=== PATIENT | female | born 1985 | race African-American/Black ===

== ENCOUNTER 2018-08-15 14:11 | Emergency (ER) | payer OTHER, SELFPAY ==
[2018-08-15] MEDS ORDERED: KETOROLAC 30 MG/ML INJ ONE (15:38)
[2018-08-15 15:42] LABS: Absolute Lymphocytes (CBC) 1.9 K/uL (0.7-4.9); Absolute Monocytes 0.4 K/uL (0.1-1.3); Absolute Neutrophil 4.4 K/uL (1.8-8.0); Basophils % 0.6 % (0-1.3); Eosinophils % 1.6 % (0-4.4); Hematocrit 35.4 % (36.0-45.0); Lymphocytes % 27.1 % (15.3-44.8); MPV 8.6 fL (7.6-11.3); Monocytes % 6.5 % (3.3-12.3); RBC Red Blood Cell Count 4.14 M/uL (3.86-4.86)
[2018-08-15 15:44] LABS: Protime INR 1.18
[2018-08-15 15:57] LABS: ALT/SGPT 26 U/L (12-78); AST/SGOT 12 U/L (15-37); Albumin 3.6 g/dL (3.4-5.0); Alkaline Phosphatase 66 U/L (45-117); BUN Blood Urea Nitrogen 7 mg/dL (7-18); Bicarbonate 29 mmol/L (21-32); Bilirubin Direct < 0.1 mg/dL (0-0.2); Bilirubin Total 0.2 mg/dL (0.2-1.0); Glucose Level 77 mg/dL (74-106); NT PRO-BNP 83 pg/mL (<125); Potassium 3.6 mmol/L (3.5-5.1); Protein, Total 7.7 g/dL (6.4-8.2); Sodium Level 141 mmol/L (136-145); Troponin (Emerg Dept Use Only) < 0.02 ng/mL (0.0-0.045)
--- NOTE | 2018-08-15 16:27 | RAD REPORT ---
EXAM DESCRIPTION: Willy Single View08/15/2018 3:13 pm CLINICAL HISTORY: Chest pain COMPARISON: 2017 FINDINGS: Lungs appear grossly clear. The heart is normal size
--- NOTE | 2018-08-15 17:19 | ER ---
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 Transition of care: patient was not received from another setting of care. Onset of symptoms was August 15, 2018. Risk Assessment: Do you want to hurt yourself or someone else? Patient reports no desire to harm self or others. Initial Sepsis Screen: Does the patient meet any 2 criteria? No. Patient's initial sepsis screen is negative. Does the patient have a suspected source of infection? No. Patient's initial sepsis screen is negative. Care prior to arrival: None. 14:22 Method Of Arrival: Ambulatory 14:22 Acuity: CRISTHIAN 3 Triage Assessment: 14:26 General: Appears in no apparent distress. uncomfortable, Behavior is calm, cooperative, hj appropriate for age. Pain: Complains of pain in head, chest. Cardiovascular: Reports chest pain. 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 - Social history:: Smoking status: Patient uses tobacco products, Patient/guardian denies using alcohol. - Ebola Screening: : Patient negative for fever greater than or equal to 101.5 degrees Fahrenheit, and additional compatible Ebola Virus Disease symptoms Patient denies exposure to infectious person Patient denies travel to an Ebola-affected area in the 21 days before illness onset. Screenin:26 Abuse screen: Denies threats or abuse. Denies injuries from another. Nutritional hj screening: No deficits noted. Tuberculosis screening: No symptoms or risk factors identified. Fall Risk None identified. Assessment: 14:29 Pain: Pain radiates to right arm Pain began last week and came back today. hj 14:41 Reassessment: Patient appears in no apparent distress at this time. Patient and/or sg family updated on plan of care and expected duration. Pain level reassessed. Patient is alert, oriented x 3, equal unlabored respirations, skin warm/dry/pink. 16:30 General: Appears in no apparent distress. comfortable, Behavior is calm, cooperative. rb1 Pain: Denies pain. Neuro: Level of Consciousness is awake, alert, obeys commands, Oriented to person, place, time, situation. Cardiovascular: Capillary refill < 3 seconds is brisk in bilateral fingers. Respiratory: Airway is patent Respiratory effort is even, unlabored, Respiratory pattern is regular, symmetrical. GI: No signs and/or symptoms were reported involving the gastrointestinal system. : No signs and/or symptoms were reported regarding the genitourinary system. Derm: Skin is dry, Skin is normal, Skin temperature is warm. 17:30 Reassessment: Patient appears in no apparent distress at this time. No changes from rb1 previously documented assessment. Vital Signs: 14:27 BP 126 / 87; Pulse 104; Resp 18; Temp 99.8(O); Pulse Ox 99% on R/A; Weight 90.72 kg; hj Height 5 ft. 2 in. (157.48 cm); Pain 10/10; 15:52 BP 130 / 95; Pulse 89; Resp 16; Pulse Ox 100% on R/A; Pain 8/10; sg 16:30 BP 133 / 89; Pulse 82; Resp 19; Pulse Ox 98% on R/A; Pain 7/10; rb1 17:30 BP 134 / 90; Pulse 81; Resp 16; Pulse Ox 100% on R/A; rb1 14:27 Body Mass Index 36.58 (90.72 kg, 157.48 cm) ED Course: 14:21 Patient arrived in ED. mr 14:21 None, None is Private Physician. mr 14:25 Triage completed. hj 14:27 Arm band placed on left wrist. hj 14:27 campus monitor on. Pulse ox on. NIBP on. hj 14:29 Patient has correct armband on for positive identification. Placed in gown. Bed in low hj position. Call light in reach. Side rails up X 1. 14:29 Patient maintains SpO2 saturation greater than 95% on room air. 14:37 Elan Álvarez MD is Attending Physician. 14:38 Kit Dhillon, RN is Primary Nurse. sg 14:41 Warm blanket given. sg 15:13 XRAY Chest (1 view) In Process Unspecified. EDMS 15:15 Flu and/or RSV swab sent to lab. [facility] 15:18 EKG done, by survey field technician. reviewed by Elan Álvarez MD. 3 15:25 Initial lab(s) drawn, by oh, sent to lab. Inserted saline lock: 20 gauge in right 3 antecubital area, using aseptic technique. Blood collected. 17:18 Abrahan Ruano MD is Referral Physician. 17:19 Noe Pearce DO is Referral Physician. 17:38 No provider procedures requiring assistance completed. IV discontinued, intact, rb1 bleeding controlled, No redness/swelling at site. Pressure dressing applied. Administered Medications: 15:42 Drug: TORadol 30 mg Route: IVP; Site: right antecubital; Outcome: 17:19 Discharge ordered by MD. gs 17:38 Patient left the ED. rb1 17:38 Discharged to home ambulatory, with family. rb1 17:38 Condition: stable 17:38 Discharge instructions given to patient, Instructed on discharge instructions, follow up and referral plans. Demonstrated understanding of instructions, follow-up care, Prescriptions given X none Signatures: Dispatcher [employer] EDUT Kit Dhillon RN RN Catalina Simmons mr [address] RN RN Paty Leyva RN RN [facility] Gini Whittaker [facility] Elan Álvarez MD MD Felecia You 3 Corrections: (The following items were deleted from the chart) 16:51 16:30 BP 133 / 89; Pulse 82bpm; Resp 19bpm; Pulse Ox 98% RA; rb1 rb1
--- NOTE | 2018-08-15 17:19 | EDPHYS ---
Physician Documentation [facility] Name: Taisha Gavin Age: 33 yrs Sex: Female : 1985 Arrival Date: 08/15/2018 Time: 14:21 Bed 17 Private MD: None, None ED Physician Elan Álvarez HPI: 08/15 17:44 This 33 yrs old Black Female presents to ER via Ambulatory with complaints of Chest gs Pain, Headache. 17:44 The patient or guardian reports chest pain that is located primarily in the anterior gs chest wall. 17:53 The pain does not radiate. Associated signs and symptoms: Pertinent negatives:. gs 18:01 The chest pain is described as dull. Duration: The patient or guardian reports multiple gs episodes, that are intermittent, that wax and wane, with no pattern, change location in chest. Modifying factors: The symptoms are alleviated by nothing. the symptoms are aggravated by nothing. Severity of pain: At its worst the pain was moderate in the emergency department the pain has resolved. The patient has experienced similar episodes in the past, several times. 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 - Social history:: Smoking status: Patient uses tobacco products, Patient/guardian denies using alcohol. - Ebola Screening: : Patient negative for fever greater than or equal to 101.5 degrees Fahrenheit, and additional compatible Ebola Virus Disease symptoms Patient denies exposure to infectious person Patient denies travel to an Ebola-affected area in the 21 days before illness onset. ROS: 18:01 Neuro: Positive for headache usual no severe no visual changes. gs 18:01 All other systems are negative. Exam: 18:01 Head/Face: Normocephalic, atraumatic. Eyes: Pupils equal round and reactive to light, gs extra-ocular motions intact. Lids and lashes normal. Conjunctiva and sclera are non-icteric and not injected. Cornea within normal limits. Periorbital areas with no swelling, redness, or edema. ENT: Nares patent. No nasal discharge, no septal abnormalities noted. Tympanic membranes are normal and external auditory canals are clear. Oropharynx with no redness, swelling, or masses, exudates, or evidence of obstruction, uvula midline. Mucous membranes moist. Neck: Trachea midline, no thyromegaly or masses palpated, and no cervical lymphadenopathy. Supple, full range of motion without nuchal rigidity, or vertebral point tenderness. No Meningismus. Chest/axilla: Normal chest wall appearance and motion. Nontender with no deformity. No lesions are appreciated. Cardiovascular: Regular rate and rhythm with a normal S1 and S2. No gallops, murmurs, or rubs. Normal PMI, no JVD. No pulse deficits. Respiratory: Lungs have equal breath sounds bilaterally, clear to auscultation and percussion. No rales, rhonchi or wheezes noted. No increased work of breathing, no retractions or nasal flaring. Abdomen/GI: Soft, non-tender, with normal bowel sounds. No distension or tympany. No guarding or rebound. No evidence of tenderness throughout. Back: No spinal tenderness. No costovertebral tenderness. Full range of motion. Skin: Warm, dry with normal turgor. Normal color with no rashes, no lesions, and no evidence of cellulitis. MS/ Extremity: Pulses equal, no cyanosis. Neurovascular intact. Full, normal range of motion. Neuro: Awake and alert, GCS 15, oriented to person, place, time, and situation. Cranial nerves II-XII grossly intact. Motor strength 5/5 in all extremities. Sensory grossly intact. Cerebellar exam normal. Normal gait. 18:01 Constitutional: The patient appears alert, awake. 18:01 ECG was reviewed by the Attending Physician. Vital Signs: 14:27 BP 126 / 87; Pulse 104; Resp 18; Temp 99.8(O); Pulse Ox 99% on R/A; Weight 90.72 kg; hj Height 5 ft. 2 in. (157.48 cm); Pain 10/10; 15:52 BP 130 / 95; Pulse 89; Resp 16; Pulse Ox 100% on R/A; Pain 8/10; sg 16:30 BP 133 / 89; Pulse 82; Resp 19; Pulse Ox 98% on R/A; Pain 7/10; rb1 17:30 BP 134 / 90; Pulse 81; Resp 16; Pulse Ox 100% on R/A; rb1 14:27 Body Mass Index 36.58 (90.72 kg, 157.48 cm) MDM: 14:51 Patient medically screened. 18:01 Differential diagnosis: acute myocardial infarction, chest wall pain, pneumonia, gs pneumothorax. Data reviewed: vital signs, nurses notes. Counseling: I had a detailed discussion with the patient and/or guardian regarding: the historical points, exam findings, and any diagnostic results supporting the discharge/admit diagnosis, the presence of at least one elevated blood pressure reading (>120/80) during this emergency department visit. Response to treatment: the patient's symptoms have resolved after treatment, the patient's pain is gone. Special discussion: I have referred the patient to see his PCP for further evaluation of high blood pressure. Further emergent ED testing is not indicated at this point in time. I discussed with the patient/guardian in detail the need to arrange with the PCP or specialist further outpatient testing. 08/15 14:52 Order name: Basic Metabolic Panel; Complete Time: 16:45 08/15 14:52 Order name: CBC with Diff; Complete Time: 16:45 08/15 14:52 Order name: LFT's; Complete Time: 16:45 08/15 14:52 Order name: Magnesium; Complete Time: 16:45 08/15 14:52 Order name: NT PRO-BNP; Complete Time: 16:45 08/15 14:52 Order name: PT-INR; Complete Time: 16:45 08/15 14:30 Order name: EKG; Complete Time: 14:30 08/15 14:52 Order name: Troponin (emerg Dept Use Only); Complete Time: 16:45 08/15 14:52 Order name: XRAY Chest (1 view); Complete Time: 16:45 08/15 14:52 Order name: Cardiac monitoring; Complete Time: 15:10 08/15 14:52 Order name: Flu; Complete Time: 16:45 08/15 15:50 Order name: Urine Dipstick--Ancillary (enter results) 08/15 15:50 Order name: Urine --Ancillary (enter results) 08/15 14:52 Order name: IV Saline Lock; Complete Time: 15:10 08/15 14:52 Order name: Labs collected and sent; Complete Time: 15: 08/15 14:52 Order name: O2 Per Protocol; Complete Time: 15: 08/15 14:52 Order name: O2 Sat Monitoring; Complete Time: 15: EC:01 Rate is 88 beats/min. Rhythm is regular. VA interval is normal. QRS interval is normal. gs T waves are Normal. No ST changes noted. Clinical impression: Normal ECG. Interpreted by me. Administered Medications: 15:42 Drug: TORadol 30 mg Route: IVP; Site: right antecubital; sg Disposition: 08/15/18 17:19 Discharged to Home. Impression: Chest pain, unspecified, Headache. - Condition is Stable. - Discharge Instructions: Nonspecific Chest Pain, General Headache Without Cause. - Medication Reconciliation Form, Thank You Letter, Antibiotic Education, Prescription Opioid Use form. - Follow up: Abrahan Ruano MD; When: 2 - 3 days; Reason: Re-evaluation by your physician. Follow up: Noe Pearce DO; When: 2 - 3 days; Reason: Re-evaluation by your physician. Signatures: Dispatcher [employer] EDKit Pearce RN RN Lincoln Lane RN RN Paty Leyva RN RN rb1 Elan Álvarez MD MD Corrections: (The following items were deleted from the chart) 17:38 17:19 08/15/2018 17:19 Discharged to Home. Impression: Chest pain, unspecified; rb1 Headache. Condition is Stable. Forms are Medication Reconciliation Form, Thank You Letter, Antibiotic Education, Prescription Opioid Use. Follow up: Abrahan Ruano; When: 2 - 3 days; Reason: Re-evaluation by your physician. Follow up: Noe Pearce; When: 2 - 3 days; Reason: Re-evaluation by your physician.
[2018-08-15 18:48] LABS: Urine Blood 2+ (NEG); Urine Glucose NEGATIVE (NEG); Urine Protein NEGATIVE (NEG); Urine Specific Gravity 1.015 (1.005-1.030)
[2018-08-15 19:18] VITALS: TEMP 99.8
[2018-08-15 19:20] VITALS: BP 133/89; O2SAT 98
--- NOTE | 2018-08-15 22:55 | EKG ---
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
== END 2018-08-15 17:38 | disposition home or self-care (01) ==
LOC: ER 14:11
DX: R07.9 Chest pain, unspecified (principal); R51 Headache; Z72.0 Tobacco use
CPT/HCPCS: 36415; 71045; 80048; 80076; 81003; 81025; 83735; 83880; 84484; 85025; 85610; 87804; 93005; 96374; 99285

== ENCOUNTER 2018-10-04 10:57 | Emergency (ER) | payer SELFPAY ==
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
[2018-10-04] MEDS ORDERED: KETOROLAC 30 MG/ML INJ ONE (13:42)
[2018-10-04] MEDS ORDERED: CYCLOBENZAPRINE 10 MG TAB ONE (13:44)
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
[2018-10-04 14:51] VITALS: TEMP 98.1; O2SAT 100
[2018-10-04 15:04] VITALS: BP 115/67
== END 2018-10-04 14:31 | disposition home or self-care (01) ==
LOC: ER 10:57
DX: M25.521 Pain in right elbow (principal); M54.12 Radiculopathy, cervical region; V49.50XA Passenger injured in collision with unspecified motor vehicles in traffic accident, initial encounter; F17.210 Nicotine dependence, cigarettes, uncomplicated
CPT/HCPCS: 71046; 96372; 99284

== ENCOUNTER 2019-10-12 22:02 | Emergency (ER) | payer SELFPAY ==
[2019-10-12 22:58] LABS: Absolute Lymphocytes (CBC) 3.1 K/uL (0.7-4.9); Basophils % 0.7 % (0-1.3); Hematocrit 31.9 % (36.0-45.0); Lymphocytes % 39.4 % (15.3-44.8); MPV 8.6 fL (7.6-11.3); RBC Red Blood Cell Count 3.83 M/uL (3.86-4.86)
[2019-10-12] MEDS ORDERED: ONDANSETRON 4 MG/2 ML VIAL ONE (23:00)
[2019-10-12] MEDS ORDERED: MORPHINE 4 MG/ML SYR ONE (23:00)
[2019-10-12 23:16] LABS: Urine Blood 2+ (NEG); Urine Glucose NEGATIVE (NEG); Urine Protein NEGATIVE (NEG); Urine Specific Gravity 1.025 (1.005-1.030)
[2019-10-12 23:19] LABS: Protime INR 1.22
[2019-10-12 23:23] LABS: ALT/SGPT 26 U/L (12-78); AST/SGOT 17 U/L (15-37); Albumin 3.3 g/dL (3.4-5.0); Alkaline Phosphatase 54 U/L (45-117); BUN Blood Urea Nitrogen 7 mg/dL (7-18); Bicarbonate 25 mmol/L (21-32); Bilirubin Direct < 0.1 mg/dL (0-0.2); Bilirubin Total 0.2 mg/dL (0.2-1.0); Glucose Level 94 mg/dL (74-106); Magnesium 2.2 mg/dL (1.8-2.4); NT PRO-BNP 27 pg/mL (<125); Potassium 3.4 mmol/L (3.5-5.1); Protein, Total 7.3 g/dL (6.4-8.2); Sodium Level 140 mmol/L (136-145); Troponin (Emerg Dept Use Only) < 0.02 ng/mL (0.0-0.045)
[2019-10-12] MEDS ORDERED: DIPHENHYDRAMINE 50 MG/ML VIAL ONE (23:53)
[2019-10-12] MEDS ORDERED: POTASSIUM CL SA 10 MEQ TAB PO ONE (23:53)
--- NOTE | 2019-10-13 01:21 | ER ---
Nurse's Notes [facility] Name: Taisha Gavin Age: 34 yrs Sex: Female : 1985 Arrival Date: 10/12/2019 Time: 22:08 Bed 23 Private MD: Diagnosis: Chest pain Presentation: 10/11 22:08 Chief complaint: Patient states: CHEST PAIN THAT STARTED ONE HOUR AGO. ls4 22:08 Coronavirus screen: The patient has NOT traveled to a country currently being monitored ls4 by the [facility] within the last 14 days. Proceed with normal triage procedures. Ebola Screen: Patient negative for fever greater than or equal to 101.5 degrees Fahrenheit, and additional compatible Ebola Virus Disease symptoms. Initial Sepsis Screen: Does the patient meet any 2 criteria? No. Patient's initial sepsis screen is negative. Does the patient have a suspected source of infection? No. Patient's initial sepsis screen is negative. Risk Assessment: Do you want to hurt yourself or someone else? Patient reports no desire to harm self or others. 22:08 Method Of Arrival: EMS: [facility] ls4 22:08 Acuity: CRISTHIAN 3 ls4 Triage Assessment: 22:08 General: Appears in no apparent distress. Behavior is calm, cooperative. Pain: ls4 Complains of pain in mid-sternal area Pain currently is 9 out of 10 on a pain scale. Quality of pain is described as sharp, Pain began suddenly, 1 hour ago. 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 - Social history:: Smoking status: Patient reports the use of cigarette tobacco products, smokes one pack cigarettes per day. Screenin:08 Abuse screen: Denies threats or abuse. Denies injuries from another. Nutritional ls4 screening: No deficits noted. Tuberculosis screening: No symptoms or risk factors identified. Fall Risk None identified. Assessment: 22:10 General: Appears in no apparent distress. Behavior is calm, cooperative. Neuro: No ls4 deficits noted. Cardiovascular: Reports chest pain, Denies diaphoresis, fatigue, lightheadedness, nausea, palpitations, shortness of breath, syncope, vomiting, Capillary refill < 3 seconds Clubbing of nail beds is absent Thorax Patient's skin is warm and dry. Rhythm is sinus rhythm. Respiratory: No deficits noted. GI: No deficits noted. No signs and/or symptoms were reported involving the gastrointestinal system. : No deficits noted. No signs and/or symptoms were reported regarding the genitourinary system. Derm: No deficits noted. No signs and/or symptoms reported regarding the dermatologic system. Musculoskeletal: No deficits noted. No signs and/or symptoms reported regarding the musculoskeletal system. 23:10 Reassessment: Patient appears in no apparent distress at this time. Patient and/or ls4 family updated on plan of care and expected duration. Pain level reassessed. Patient is alert, oriented x 3, equal unlabored respirations, skin warm/dry/pink. Patient states symptoms have improved. 10/12 00:30 Reassessment: Patient appears in no apparent distress at this time. Patient and/or ls4 family updated on plan of care and expected duration. Pain level reassessed. Patient is alert, oriented x 3, equal unlabored respirations, skin warm/dry/pink. Vital Signs: 10/11 22:08 BP 139 / 86; Pulse 69; Resp 14; Temp 98.1; Pulse Ox 99% on R/A; Weight 79.38 kg; Height ls4 5 ft. 2 in. (157.48 cm); Pain 9/10; 23:55 BP 138 / 88; Pulse 55; Resp 14; Pulse Ox 99% on R/A; Pain 3/10; ls4 10/12 00:00 BP 148 / 84; Pulse 62; Resp 14; Pulse Ox 100% on R/A; Pain 3/10; ls4 10/11 22:08 Body Mass Index 32.01 (79.38 kg, 157.48 cm) 4 ED Course: 10/11 22:08 Patient arrived in ED. vc 22:08 Arm band placed on. ls4 22:08 EKG completed in triage. Results shown to MD. 4 22:10 Osvaldo Atkins MD is Attending Physician. pkl 22:10 Patient has correct armband on for positive identification. Allergy band placed. Placed ls4 in gown. Bed in low position. Call light in reach. Side rails up X 1. 22:20 No provider procedures requiring assistance completed. Inserted saline lock: 20 gauge ls4 in right antecubital area, using aseptic technique. Blood collected. 22:20 Initial lab(s) drawn, by me, sent to lab. Urine collected: clean catch specimen, clear. ls4 Patient maintains SpO2 saturation greater than 95% on room air. 22:32 Irina Mccauley RN is Primary Nurse. vc 22:55 X-ray completed. Portable x-ray completed in exam room. Patient tolerated procedure mh1 well. 23:16 Triage completed. ls4 23:52 Urine --Ancillary (enter results) Sent. ls4 23:52 Urine Dipstick--Ancillary (enter results) Sent. ls4 03 00:59 XRAY Chest (1 view) In Process Unspecified. EDMS 01:19 Osvaldo Hendrix MD is Referral Physician. pkl 01:19 Troponin (emerg Dept Use Only) Sent. ls4 01:24 IV discontinued, intact, bleeding controlled, No redness/swelling at site. Pressure ls4 dressing applied. Administered Medications: 03 22:45 Drug: morphine 4 mg Route: IVP; Site: right antecubital; ls4 23:15 Follow up: Response: No adverse reaction; Marked relief of symptoms ls4 22:45 Drug: Zofran (Ondansetron) 4 mg Route: IVP; Site: right antecubital; ls4 23:15 Follow up: Response: No adverse reaction ls4 23:49 Drug: K-Dur 20 mEq Route: PO; ls4 23:52 Follow up: Response: No adverse reaction ls4 23:49 Drug: Benadryl 25 mg Route: IVP; Site: right antecubital; ls4 23:52 Follow up: Response: No adverse reaction ls4 Outcome: 10/12 01:20 Discharge ordered by . pkl 01:24 Discharged to home ambulatory, with family. ls4 01:24 Condition: good 01:24 Discharge instructions given to patient, family, Instructed on discharge instructions, follow up and referral plans. medication usage, Demonstrated understanding of instructions, follow-up care, medications. 01:31 Patient left the ED. aa1 Signatures: Dispatcher [employer] Annie Sanches RN RN aa1 Osvaldo Atkins MD MD [facility] Mili Durant 1 Merline Jung RN RN ls4 Irina Mccauley RN RN vc Corrections: (The following items were deleted from the chart) 10/11 23:19 23:17 PSHx: None; ls4 ls4
--- NOTE | 2019-10-13 01:21 | EDPHYS ---
Physician Documentation [facility] Name: Taisha Gavin Age: 34 yrs Sex: Female : 1985 Arrival Date: 10/12/2019 Time: 22:08 Bed 23 Private MD: ED Physician Osvaldo Atkins HPI: 10/11 22:34 This 34 yrs old Black Female presents to ER via Unassigned with unknown complaint. pkl 22:34 The patient or guardian reports chest pain that is located primarily in the substernal pkl area. The pain does not radiate. Associated signs and symptoms: The patient has no apparent associated signs or symptoms. The chest pain is described as sharp. Patient saw her Dentist earlier today for dental pain. Pending dental surgery by oral surgeon on Tuesday. 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 - Social history:: Smoking status: Patient reports the use of cigarette tobacco products, smokes one pack cigarettes per day. ROS: 22:34 Eyes: Negative for injury, pain, redness, and discharge. pkl 22:34 ENT: Positive for dental pain. 22:34 Neck: Negative for stiffness. 22:34 Cardiovascular: Positive for chest pain. 22:34 Respiratory: Negative for cough, shortness of breath. 22:34 Abdomen/GI: Negative for abdominal pain, nausea, vomiting, and diarrhea. 22:34 Back: Negative for acute changes. 22:34 : Negative for urinary symptoms. 22:34 MS/extremity: Negative for acute changes. 22:34 Skin: Negative for rash. 22:34 Neuro: Negative for altered mental status. Exam: 22:34 Head/Face: Normocephalic, atraumatic. Eyes: Pupils equal round and reactive to light, pkl extra-ocular motions intact. Lids and lashes normal. Conjunctiva and sclera are non-icteric and not injected. Cornea within normal limits. Periorbital areas with no swelling, redness, or edema. ENT: Nares patent. No nasal discharge, no septal abnormalities noted. Tympanic membranes are normal and external auditory canals are clear. Oropharynx with no redness, swelling, or masses, exudates, or evidence of obstruction, uvula midline. Mucous membranes moist. Neck: Trachea midline, no thyromegaly or masses palpated, and no cervical lymphadenopathy. Supple, full range of motion without nuchal rigidity, or vertebral point tenderness. No Meningismus. Chest/axilla: Normal chest wall appearance and motion. Nontender with no deformity. No lesions are appreciated. Cardiovascular: Regular rate and rhythm with a normal S1 and S2. No gallops, murmurs, or rubs. Normal PMI, no JVD. No pulse deficits. Respiratory: Lungs have equal breath sounds bilaterally, clear to auscultation and percussion. No rales, rhonchi or wheezes noted. No increased work of breathing, no retractions or nasal flaring. Abdomen/GI: Soft, non-tender, with normal bowel sounds. No distension or tympany. No guarding or rebound. No evidence of tenderness throughout. Back: No spinal tenderness. No costovertebral tenderness. Full range of motion. Skin: Warm, dry with normal turgor. Normal color with no rashes, no lesions, and no evidence of cellulitis. MS/ Extremity: Pulses equal, no cyanosis. Neurovascular intact. Full, normal range of motion. Neuro: Awake and alert, GCS 15, oriented to person, place, time, and situation. Cranial nerves II-XII grossly intact. Motor strength 5/5 in all extremities. Sensory grossly intact. Cerebellar exam normal. Normal gait. Vital Signs: 22:08 BP 139 / 86; Pulse 69; Resp 14; Temp 98.1; Pulse Ox 99% on R/A; Weight 79.38 kg; Height ls4 5 ft. 2 in. (157.48 cm); Pain 9/10; 23:55 BP 138 / 88; Pulse 55; Resp 14; Pulse Ox 99% on R/A; Pain 3/10; ls4 10/12 00:00 BP 148 / 84; Pulse 62; Resp 14; Pulse Ox 100% on R/A; Pain 3/10; ls4 10/11 22:08 Body Mass Index 32.01 (79.38 kg, 157.48 cm) ls4 MDM: 10/11 22:10 Patient medically screened. pkl 10/12 01:18 Data reviewed: vital signs, nurses notes, lab test result(s), EKG, radiologic studies, pkl plain films. 01:20 ED course: discussed lab. EKG and X' rays results with patient. Advised to follow up pkl with Pricing Consultant next week for further evaluations. Patient understood instructions. 10/11 22:30 Order name: Basic Metabolic Panel pkl 10/11 22:30 Order name: CBC with Diff pkl 10/11 22:30 Order name: LFT's pkl 10/11 22:30 Order name: Magnesium pkl 10/11 22:30 Order name: NT PRO-BNP pkl 10/11 22:30 Order name: PT-INR pkl 10/11 22:30 Order name: Troponin (emerg Dept Use Only) pkl 10/11 22:31 Order name: D-Dimer pkl 10/11 23:01 Order name: CBC with Automated Diff; Complete Time: 23:26 EDMS 10/11 23:03 Order name: Urine Dipstick--Ancillary (enter results) ar5 10/11 23:03 Order name: Urine --Ancillary (enter results) ar5 10/11 23:16 Order name: D-Dimer; Complete Time: 23:26 EDMS 10/11 23:17 Order name: Urine --Ancillary; Complete Time: 23:26 EDMS 10/11 23:17 Order name: Urine Dipstick-Ancillary; Complete Time: 23:26 EDMS 10/11 22:30 Order name: XRAY Chest (1 view) pkl 10/11 22:30 Order name: EKG; Complete Time: 22:32 pkl 10/11 22:30 Order name: Cardiac monitoring; Complete Time: 22:33 pkl 10/11 23:21 Order name: Protime (+INR); Complete Time: 23:26 EDMS 10/11 23:23 Order name: Basic Metabolic Panel; Complete Time: 23:26 EDMS 10/11 23:23 Order name: Liver (Hepatic) Function; Complete Time: 23:26 EDMS 10/11 23:23 Order name: Troponin (Emerg Dept Use Only); Complete Time: 23:26 EDMS 10/11 23:23 Order name: NT PRO-BNP; Complete Time: 23:26 EDMS 10/11 23:23 Order name: Magnesium; Complete Time: 23:26 EDMS 10/12 00:21 Order name: EKG; Complete Time: 00:22 pkl 10/12 00:21 Order name: Troponin (emerg Dept Use Only) pkl 10/12 00:59 Order name: Troponin (Emerg Dept Use Only); Complete Time: 01:05 EDMS 10/11 22:30 Order name: EKG - Nurse/Tech; Complete Time: :33 pkl 10/11 22:30 Order name: IV Saline Lock; Complete Time: :33 pkl 10/11 22:30 Order name: Labs collected and sent; Complete Time: :33 pkl 10/11 22:30 Order name: O2 Per Protocol; Complete Time: :33 pkl 10/11 22:30 Order name: O2 Sat Monitoring; Complete Time: :33 pkl 10/12 01:07 Order name: EKG - Nurse/Tech; Complete Time: 01:19 ls4 Administered Medications: 10/11 22:45 Drug: morphine 4 mg Route: IVP; Site: right antecubital; ls4 23:15 Follow up: Response: No adverse reaction; Marked relief of symptoms ls4 22:45 Drug: Zofran (Ondansetron) 4 mg Route: IVP; Site: right antecubital; ls4 23:15 Follow up: Response: No adverse reaction ls4 23:49 Drug: K-Dur 20 mEq Route: PO; ls4 23:52 Follow up: Response: No adverse reaction ls4 23:49 Drug: Benadryl 25 mg Route: IVP; Site: right antecubital; ls4 23:52 Follow up: Response: No adverse reaction ls4 Disposition: 10/13/19 01:20 Discharged to Home. Impression: Chest pain. - Condition is Stable. - Medication Reconciliation Form, Thank You Letter, Antibiotic Education, Prescription Opioid Use form. - Follow up: Osvaldo Hendrix MD; When: 2 - 3 days; Reason: Re-evaluation by your physician. - Problem is new. - Symptoms have improved. Signatures: Dispatcher [employer] EDAnnie Baltazar RN RN aa1 Osvaldo Atkins MD MD pkl Stewart, Lisa, RN RN ls4 Corrections: (The following items were deleted from the chart) 23:19 23:17 PSHx: None; ls4 ls4 10/12 01:31 01:20 10/13/2019 01:20 Discharged to Home. Impression: Chest pain. Condition is Stable. aa1 Forms are Medication Reconciliation Form, Thank You Letter, Antibiotic Education, Prescription Opioid Use. Follow up: Osvaldo Hendrix; When: 2 - 3 days; Reason: Re-evaluation by your physician. Problem is new. Symptoms have improved. pkl
[2019-10-13 01:42] VITALS: TEMP 98.1
[2019-10-13 01:45] VITALS: BP 148/84; O2SAT 100
--- NOTE | 2019-10-13 07:36 | EKG ---
Test Date: 2019-10-13 Test Time: 01:16:02 Manager Military: RALPH MEASUREMENT RESULTS: Intervals: Rate: 63 SD: 170 QRSD: 94 QT: 428 QTc: 437 [place]: P: 26 SD: 170 QRS: 25 T: 24 INTERPRETIVE STATEMENTS: Normal sinus rhythm normal ECG Compared to ECG 10/12/2019 22:19:04 No significant changes Electronically Signed On 10-13-19 07:35:41 LEAD RIDER by Mihir Lopes
--- NOTE | 2019-10-13 07:37 | EKG ---
Test Date: 2019-10-12 Test Time: 22:19:04 Leaf Tinner: RALPH MEASUREMENT RESULTS: Intervals: Rate: 69 OK: 160 QRSD: 82 QT: 392 QTc: 420 [place]: P: 44 OK: 160 QRS: 21 T: 18 INTERPRETIVE STATEMENTS: Normal sinus rhythm Normal ECG Compared to ECG 08/15/2018 15:08:34 no significant change from previous ECG Electronically Signed On 10-13-19 07:36:30 FISHER DIVING by Mihir Lopes
--- NOTE | 2019-10-13 09:41 | RAD REPORT ---
EXAM DESCRIPTION: Willy Single View10/12/2019 10:55 pm CLINICAL HISTORY: Chest pain COMPARISON: 2019 FINDINGS: The lungs appear clear of acute infiltrate. The heart is normal size IMPRESSION: No acute abnormalities displayed
== END 2019-10-13 01:31 | disposition home or self-care (01) ==
LOC: ER 22:02
DX: R07.9 Chest pain, unspecified (principal); F17.210 Nicotine dependence, cigarettes, uncomplicated; Z88.5 Allergy status to narcotic agent; Z88.8 Allergy status to other drugs, medicaments and biological substances
CPT/HCPCS: 36415; 71045; 80048; 80076; 81003; 81025; 83735; 83880; 84484; 85025; 85379; 85610; 93005; 96374; 96375; 99285; J1200; J2405

== ENCOUNTER 2021-01-22 22:41 | Emergency (ER) | payer SELFPAY ==
--- OUTSIDE RECORDS SUMMARY | 2021-01-22 22:44 | XMS REPORT | Continuity of Care Document ---
:1985 Author Organization [facility] t Address [address] [place] [address] Care Team Providers Name Role Phone Pcp, Does Not Have A Primary Care Physician Nurse, Pob Immunization Attending Clinician Unavailable Khalif Coats DO Attending Clinician Problems This patient has no known problems. Allergies, Adverse Reactions, Alerts This patient has no known allergies or adverse reactions. Social History Social Habit Start Date Stop Date Quantity Comments Source Sex Assigned At [birth year] [facility] 00:00:00 00:00:00 Medical Branch Medications This patient has no known medications. Immunizations Ordered Filled Immunization Date Status Comments Sour e Immunization Name Name SARS-COV-2 COVID-19 2020-12-12 Completed Unive rsity of PFIZER VACCINE 00:00:00 [facility] Branch Procedures Procedure Date / Time Performed Performing Clinician Irene e SARS-COV-2 COVID-19 2020-12-12 14:31:35 Doctor Unassigned, No [facility] [place] VACCINE,0.3ML,IM Name Medical Branch (PFIZER) Plan of Care Planned Activity Planned Date Details Comments Source Future Scheduled 2021-04-08 INFLUENZA VACCINE [facility] Test 00:00:00 (Season Ended) [code Medical Branch = INFLUENZA VACCINE (Season Ended)] Future Scheduled 2021-01-02 SARS-CoV-2 [facility] Test 00:00:00 (COVID-19) Vaccine [facility] (2 - Pfizer 2-dose series) [code = SARS-CoV-2 (COVID-19) Vaccine (2 - Pfizer 2-dose series)] Future Scheduled 2005 Screening for [facility] Test 00:00:00 malignant neoplasm [facility] of cervix (procedure) [code = 039586918] Future Scheduled 2003 [facility]ap,[facility]d [facility] (1 - Tdap) Medical Branch [code = DTaP,Tdap,and Td Vaccines (1 - Tdap)] Future Scheduled 2002 Hepatitis C [facility] Test 00:00:00 screening Medical Branch (procedure) [code = [id number]] Future Scheduled 1996 [facility] ([facility] [code = Medical Branch [id number]] Future Scheduled 1985 VARICELLA VACCINES Unive [facility] Test 00:00:00 (1 of 2 - 2-dose Medical Bra [facility] childhood series) [code = VARICELLA VACCINES (1 of 2 - 2-dose childhood series)] Results This patient has no known results.
[2021-01-22 23:45] LABS: Absolute Lymphocytes (CBC) 2.7 K/uL (0.7-4.9); Basophils % 0.8 % (0-1.3); Lymphocytes % 27.2 % (15.3-44.8); MPV 8.4 fL (7.6-11.3); RBC Red Blood Cell Count 4.36 M/uL (3.86-4.86)
[2021-01-22] MEDS ORDERED: NA CHLORIDE 0.9% 1,000 ML ONE (23:49)
[2021-01-22] MEDS ORDERED: ACETAMINOPHEN 500 MG TAB ONE (23:49)
[2021-01-23 00:24] LABS: Urine Blood 3+ (Negative); Urine Glucose Negative (Negative); Urine Protein Trace (Negative); Urine Specific Gravity 1.025 (1.005-1.030)
[2021-01-23 00:33] LABS: BUN Blood Urea Nitrogen 8 mg/dL (7-18); Bicarbonate 25 mmol/L (21-32); Glucose Level 90 mg/dL (74-106); Potassium 3.6 mmol/L (3.5-5.1); Sodium Level 138 mmol/L (136-145)
[2021-01-23 00:36] LABS: Urine Specific Gravity/Preg 1.025 (1.005-1.030)
[2021-01-23 00:52] LABS: HCG, Quantitative < 1 mIU/mL (1-3)
[2021-01-23 01:12] LABS: Urine Bacteria 20-50 /HPF (<20); Urine Mucus 2+ /HPF (NONE SEEN); Urine Yeast FEW (NONE SEEN)
[2021-01-23] MEDS ORDERED: CEFTRIAXONE/SWI 1gm 1 GM/10 ML SYR ONE (01:25)
[2021-01-23] MEDS ORDERED: NA CHLORIDE 0.9% 100 ML ONE (01:25)
[2021-01-23] MEDS ORDERED: ONDANSETRON 4 MG/2 ML VIAL ONE (01:27)
[2021-01-23] MEDS ORDERED: MORPHINE 4 MG/ML SYR ONE (01:27)
[2021-01-23] MEDS ORDERED: DIPHENHYDRAMINE 50 MG/ML VIAL ONE (02:25)
[2021-01-23] MEDS ORDERED: CIPROFLOXACIN HCL 500 MG TAB ONE (03:06)
--- NOTE | 2021-01-23 03:14 | EDPHYS ---
Physician Documentation [facility] Name: Taisha Gavin Age: 35 yrs Sex: Female : 1985 Arrival Date: 01/22/2021 Time: 23:01 Bed 5 Private MD: ED Physician lCark Sagastume HPI: 01/22 23:21 This 35 yrs old Black Female presents to ER via Ambulatory with complaints of Abdominal ernesto Pain. 23:21 The patient presents with pelvic pain, vaginal bleeding that is moderate. Onset: The ernesto symptoms/episode began/occurred 1 day(s) ago. Modifying factors: The symptoms are alleviated by nothing, the symptoms are aggravated by nothing. Associated signs and symptoms: The patient has no apparent associated signs or symptoms. Severity of symptoms: At their worst the symptoms were mild, moderate, in the emergency department the symptoms are unchanged. The patient is sexually active, reportedly has a single partner. 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 - Social history:: Smoking status: Patient reports the use of cigarette tobacco products, denies chronic smoking, but will smoke occasionally. - Family history:: not pertinent. ROS: 23:21 Constitutional: Negative for fever, chills, and weight loss, Eyes: Negative for injury, ernesto pain, redness, and discharge, ENT: Negative for injury, pain, and discharge, Neck: Negative for injury, pain, and swelling, Cardiovascular: Negative for chest pain, palpitations, and edema, Respiratory: Negative for shortness of breath, cough, wheezing, and pleuritic chest pain, Abdomen/GI: Negative for abdominal pain, nausea, vomiting, diarrhea, and constipation, Back: Negative for injury and pain, MS/Extremity: Negative for injury and deformity, Skin: Negative for injury, rash, and discoloration, Neuro: Negative for headache, weakness, numbness, tingling, and seizure, Psych: Negative for depression, anxiety, suicide ideation, homicidal ideation, and hallucinations, Allergy/Immunology: Negative for hives, rash, and allergies, Endocrine: Negative for neck swelling, polydipsia, polyuria, polyphagia, and marked weight changes, Hematologic/Lymphatic: Negative for swollen nodes, abnormal bleeding, and unusual bruising. 23:21 : Positive for vaginal bleeding. Exam: 23:21 Constitutional: This is a well developed, well nourished patient who is awake, alert, ernesto and in no acute distress. Head/Face: Normocephalic, atraumatic. Eyes: Pupils equal round and reactive to light, extra-ocular motions intact. Lids and lashes normal. Conjunctiva and sclera are non-icteric and not injected. Cornea within normal limits. Periorbital areas with no swelling, redness, or edema. ENT: Nares patent. No nasal discharge, no septal abnormalities noted. Tympanic membranes are normal and external auditory canals are clear. Oropharynx with no redness, swelling, or masses, exudates, or evidence of obstruction, uvula midline. Mucous membranes moist. Neck: Trachea midline, no thyromegaly or masses palpated, and no cervical lymphadenopathy. Supple, full range of motion without nuchal rigidity, or vertebral point tenderness. No Meningismus. Chest/axilla: Normal chest wall appearance and motion. Nontender with no deformity. No lesions are appreciated. Cardiovascular: Regular rate and rhythm with a normal S1 and S2. No gallops, murmurs, or rubs. Normal PMI, no JVD. No pulse deficits. Respiratory: Lungs have equal breath sounds bilaterally, clear to auscultation and percussion. No rales, rhonchi or wheezes noted. No increased work of breathing, no retractions or nasal flaring. Abdomen/GI: Soft, non-tender, with normal bowel sounds. No distension or tympany. No guarding or rebound. No evidence of tenderness throughout. Back: No spinal tenderness. No costovertebral tenderness. Full range of motion. Skin: Warm, dry with normal turgor. Normal color with no rashes, no lesions, and no evidence of cellulitis. MS/ Extremity: Pulses equal, no cyanosis. Neurovascular intact. Full, normal range of motion. Neuro: Awake and alert, GCS 15, oriented to person, place, time, and situation. Cranial nerves II-XII grossly intact. Motor strength 5/5 in all extremities. Sensory grossly intact. Cerebellar exam normal. Normal gait. Psych: Awake, alert, with orientation to person, place and time. Behavior, mood, and affect are within normal limits. Vital Signs: 23:05 BP 120 / 85; Pulse 102; Resp 18; Temp 98.0; Pulse Ox 100% on R/A; Weight 84.37 kg; em Height 5 ft. 4 in. (162.56 cm); Pain 9/10; 01/23 01:10 BP 123 / 82; Pulse 95; Resp 17; Pulse Ox 98% ; Pain 9/10; rr5 02:08 BP 126 / 89; Pulse 90; Resp 16; Pulse Ox 98% ; rr5 02:51 BP 122 / 78; Pulse 85; Resp 19; Pulse Ox 99% ; Pain 6/10; rr5 01/22 23:05 Body Mass Index 31.93 (84.37 kg, 162.56 cm) em MDM: 01/22 23:10 Patient medically screened. ernesto 23:10 Patient medically screened. ernesto 23:23 Differential diagnosis: dysmenorrhea, endometriosis, menometrorrhagia, menorrhea, ernesto nonspecific abdominal pain, uterine fibroids, urinary tract infection. Data reviewed: vital signs, nurses notes, lab test result(s), radiologic studies. Data interpreted: quality assurance monitor final: rate is 102 beats/min, rhythm is regular, Pulse oximetry: on room air is 100 %. Test interpretation: by ED physician or midlevel provider:. Counseling: I had a detailed discussion with the patient and/or guardian regarding: the historical points, exam findings, and any diagnostic results supporting the discharge/admit diagnosis, lab results, radiology results. 01/22 23:21 Order name: Quantitative Hcg; Complete Time: 00:[address] [facility] 01/22 23:21 Order name: Abo/rh Typing; Complete Time: 00:[address] [facility] 01/22 23:21 Order name: Basic Metabolic Panel; Complete Time: 00:[address] [facility] 01/22 23:21 Order name: CBC with Diff; Complete Time: 00:[address] [facility] 01/23 00:24 Order name: Urine Dipstick-Ancillary; Complete Time: 00:59 EDMS 01/23 00:26 Order name: Urine Microscopic Only; Complete Time: 01:58 ak2 01/22 23:21 Order name: US Transvaginal Study (Probe) [facility] 01/23 00:26 Order name: Urine Culture ak 01/23 00:27 Order name: Urine --Ancillary (enter results); Complete Time: 00:59 01/23 01:05 Order name: CT Abd/Pelvis - IV Contrast Only [facility] 01/22 23:21 Order name: Urine Test (obtain specimen); Complete Time: 00:[address] [facility] 01/22 23:21 Order name: IV Saline Lock; Complete Time: 00:[address] [facility] 01/22 23:21 Order name: Labs collected and sent; Complete Time: 00:[address] [facility] 01/22 23:21 Order name: NPO; Complete Time: 00:[address] [facility] 01/22 23:21 Order name: Urine Dipstick-Ancillary (obtain specimen); Complete Time: 00:[address] [facility] Administered Medications: 23:38 Drug: Tylenol 1000 mg Route: PO; [facility] 01/23 00:30 Follow up: Response: No adverse reaction; Pain is decreased rr5 01/22 23:39 Drug: NS 0.9% 1000 ml Route: IV; Rate: 1 bolus; Site: right antecubital; [facility] 01/23 00:40 Follow up: Response: No adverse reaction; IV Status: Completed infusion; IV Intake: rr5 1000ml 01:07 Drug: morphine 4 mg Route: IVP; Site: right antecubital; ak2 02:07 Follow up: Response: No adverse reaction; Pain is decreased; RASS: Alert and Calm (0) rr5 01:07 Drug: Zofran (Ondansetron) 4 mg Route: IVP; Site: right antecubital; ak2 02:10 Follow up: Response: No adverse reaction rr5 01:08 Drug: Rocephin (cefTRIAXone) 1 grams Route: IV; Rate: per protocol; Site: right ak2 antecubital; 02:10 Follow up: IV Status: Completed infusion rr5 02:07 Drug: Benadryl (diphenhydrAMINE) 50 mg Route: IVP; Site: right antecubital; rr5 02:50 Drug: Cipro (ciprofloxacin) 500 mg Route: PO; rr5 03:15 Drug: TORadol (ketorolac) 30 mg Route: IVP; Site: right antecubital; rr5 Disposition: 01/23/21 03:13 Discharged to Home. Impression: Abdominal tenderness, Other abnormal uterine and vaginal bleeding, Urinary tract infection, site not specified, Other ovarian cysts - 4.5x3.2cm. - Condition is Stable. - Discharge Instructions: Abdominal Pain, Adult, Ovarian Cyst, Urinary Tract Infection, Adult, Urinary Tract Infection, Adult, [id number], Abdominal Pain, Adult, [id number], Ovarian Cyst, Lekl-mv-Mokz. - Prescriptions for Bentyl 20 mg Oral Tablet - take 1 tablet by ORAL route every 6 hours As needed; 20 tablet. Cipro 250 mg Oral Tablet - take 1 tablet by ORAL route every 12 hours; 14 tablet. Ibuprofen 600 mg Oral Tablet - take 1 tablet by ORAL route every 6 hours As needed take with food; 20 tablet. - Medication Reconciliation Form, Thank You Letter, Antibiotic Education, Prescription Opioid Use, Work release form, Family Work Release form. - Follow up: Private Physician; When: 2 - 3 days; Reason: Recheck today's complaints, Continuance of care, Re-evaluation by your physician. Follow up: Jose Mcleod; When: 2 - 3 days; Reason: Recheck today's complaints, Continuance of care, Re-evaluation by your physician. - Problem is new. - Symptoms have improved. Signatures: Dispatcher [employer] Clark Saucedo MD MD cha Munoz, Edgar, RN RN Omar Aguilar RN RN rr5 Ceferino Neil2 Corrections: (The following items were deleted from the chart) 03:19 03:13 01/23/2021 03:13 Discharged to Home. Impression: Abdominal tenderness; Other ak2 abnormal uterine and vaginal bleeding; Urinary tract infection, site not specified; Other ovarian cysts - 4.5x3.2cm. Condition is Stable. Discharge Instructions: Abdominal Pain, Adult, Urinary Tract Infection, Adult, Urinary Tract Infection, Adult, Mrbw-an-Kxfl, Abdominal Pain, Adult, Qcvh-[id number]-Bgcb. Prescriptions for Bentyl 20 mg Oral Tablet - take 1 tablet by ORAL route every 6 hours As needed; 20 tablet, Cipro 250 mg Oral Tablet - take 1 tablet by ORAL route every 12 hours; 14 tablet. and Forms are Medication Reconciliation Form, Thank You Letter, Antibiotic Education, Prescription Opioid Use. Follow up: Private Physician; When: 2 - 3 days; Reason: Recheck today's complaints, Continuance of care, Re-evaluation by your physician. Follow up: Jose Mcleod; When: 2 - 3 days; Reason: Recheck today's complaints, Continuance of care, Re-evaluation by your physician. Problem is new. Symptoms have improved. ernesto
--- NOTE | 2021-01-23 03:14 | ER ---
Nurse's Notes [facility] Name: Taisha Gavin Age: 35 yrs Sex: Female : 1985 Arrival Date: 01/22/2021 Time: 23:01 Bed 5 Private MD: Diagnosis: Abdominal tenderness;Other abnormal uterine and vaginal bleeding;Urinary tract infection, site not specified;Other ovarian cysts-4.5x3.2cm Presentation: 01/22 23:05 Chief complaint: Patient states: had a tubal reversal 1 month ago, 12 days had a em regular period but yesterday started having heavy vaginal bleeding with clots with left sided back pain, has used about 12 pads/tampons, also reports chills. Coronavirus screen: Client denies travel out of the [place] in the last 14 days. Ebola Screen: Patient negative for fever greater than or equal to 101.5 degrees Fahrenheit, and additional compatible Ebola Virus Disease symptoms Patient denies exposure to infectious person. Patient denies travel to an Ebola-affected area in the 21 days before illness onset. No symptoms or risks identified at this time. Initial Sepsis Screen: Does the patient meet any 2 criteria? HR > 90 bpm. No. Patient's initial sepsis screen is negative. Does the patient have a suspected source of infection? No. Patient's initial sepsis screen is negative. Risk Assessment: Do you want to hurt yourself or someone else? Patient reports no desire to harm self or others. Onset of symptoms was January 22, 2021. 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 - Social history:: Smoking status: Patient reports the use of cigarette tobacco products, denies chronic smoking, but will smoke occasionally. - Family history:: not pertinent. Screenin:35 Abuse screen: Denies threats or abuse. Denies injuries from another. Nutritional rr5 screening: No deficits noted. Tuberculosis screening: No symptoms or risk factors identified. Fall Risk IV access (20 points). Total Broussard Fall Scale indicates. Assessment: 23:10 General: Appears in no apparent distress. uncomfortable, Behavior is calm, cooperative, rr5 appropriate for age. 23:10 Pain: Complains of pain in anterior aspect of left lateral abdomen. Neuro: Level of rr5 Consciousness is awake, alert, obeys commands, Oriented to person, place, time. Cardiovascular: Capillary refill < 3 seconds Patient's skin is warm and dry. Respiratory: Airway is patent Respiratory effort is even, unlabored, Respiratory pattern is regular, symmetrical. GI: Abdomen is round Reports abdominal pain. Derm: Skin temperature is warm. Musculoskeletal: No signs and/or symptoms reported regarding the musculoskeletal system. 01/23 00:30 Reassessment: Patient appears in no apparent distress at this time. Patient and/or rr5 family updated on plan of care and expected duration. Pain level reassessed. Patient is alert, oriented x 3, equal unlabored respirations, skin warm/dry/pink. 01:13 Reassessment: Patient appears in no apparent distress at this time. Patient is alert, rr5 oriented x 3, equal unlabored respirations, skin warm/dry/pink. for CT scan and ultrasound awaiting for the procedure. 02:00 Reassessment: Patient appears in no apparent distress at this time. came back form rr5 ultrasound, complaining of itchiness, ED provider aware with order made and carriedout. 02:08 Reassessment: Patient appears in no apparent distress at this time. send for CTscan. rr5 02:21 Reassessment: Patient appears in no apparent distress at this time. back form CT scan. rr5 02:51 Reassessment: Patient appears in no apparent distress at this time. Patient is alert, rr5 oriented x 3, equal unlabored respirations, skin warm/dry/pink. awaiting for results Patient states symptoms have improved. Vital Signs: 01/22 23:05 BP 120 / 85; Pulse 102; Resp 18; Temp 98.0; Pulse Ox 100% on R/A; Weight 84.37 kg; em Height 5 ft. 4 in. (162.56 cm); Pain 9/10; 01/23 01:10 BP 123 / 82; Pulse 95; Resp 17; Pulse Ox 98% ; Pain 9/10; rr5 02:08 BP 126 / 89; Pulse 90; Resp 16; Pulse Ox 98% ; rr5 02:51 BP 122 / 78; Pulse 85; Resp 19; Pulse Ox 99% ; Pain 6/10; rr5 01/22 23:05 Body Mass Index 31.93 (84.37 kg, 162.56 cm) ED Course: 01/22 23:01 Patient arrived in ED. am4 23:09 Triage completed. em 23:09 Blu Neil is Primary Nurse. ak2 23:09 Arm band placed on. em 23:10 Clark Sagastume MD is Attending Physician. ernesto 23:20 Patient has correct armband on for positive identification. Bed in low position. Call rr5 light in reach. Pulse ox on. NIBP on. 23:40 No provider procedures requiring assistance completed. Inserted saline lock: 20 gauge rr5 in right forearm, using aseptic technique. ,using aseptic technique. inserted by blu BRITT Blood collected. 01/23 02:08 US Transvaginal Study (Probe) In Process Unspecified. EDMS 02:33 CT Abd/Pelvis - IV Contrast Only In Process Unspecified. EDMS 03:11 Jose Mcleod MD is Referral Physician. ernesto 03:19 IV discontinued. ak2 Administered Medications: 01/22 23:38 Drug: Tylenol 1000 mg Route: PO; ak2 01/23 00:30 Follow up: Response: No adverse reaction; Pain is decreased rr5 01/22 23:39 Drug: NS 0.9% 1000 ml Route: IV; Rate: 1 bolus; Site: right antecubital; ak2 01/23 00:40 Follow up: Response: No adverse reaction; IV Status: Completed infusion; IV Intake: rr5 1000ml 01:07 Drug: morphine 4 mg Route: IVP; Site: right antecubital; ak2 02:07 Follow up: Response: No adverse reaction; Pain is decreased; RASS: Alert and Calm (0) rr5 01:07 Drug: Zofran (Ondansetron) 4 mg Route: IVP; Site: right antecubital; ak2 02:10 Follow up: Response: No adverse reaction rr5 01:08 Drug: Rocephin (cefTRIAXone) 1 grams Route: IV; Rate: per protocol; Site: right ak2 antecubital; 02:10 Follow up: IV Status: Completed infusion rr5 02:07 Drug: Benadryl (diphenhydrAMINE) 50 mg Route: IVP; Site: right antecubital; rr5 02:50 Drug: Cipro (ciprofloxacin) 500 mg Route: PO; rr5 03:15 Drug: TORadol (ketorolac) 30 mg Route: IVP; Site: right antecubital; rr5 Intake: 00:40 IV: 1000ml; Total: 1000ml. rr5 Outcome: 03:13 Discharge ordered by MD. orozco 03:19 Discharged to home ambulatory. ak2 03:19 Condition: good 03:19 Discharge instructions given to patient. 03:19 Patient left the ED. ak2 Addendum: 01/26/2021 07:40 Addendum: Culture Results: Positive urine culture. No further action required. Bacteria i w sensitive to prescribed antibiotic. Signatures: Dispatcher [employer] Clark Saucedo MD MD cha Munoz, Edgar, RN RN em Williams, Irene, RN RN iw Roque, Raymond, RN RN rr5 Skylar Baldwin Anthony ak2
[2021-01-23] MEDS ORDERED: KETOROLAC 30 MG/ML INJ ONE (03:33)
[2021-01-23 03:37] VITALS: TEMP 98
[2021-01-23 03:50] VITALS: BP 122/78; O2SAT 99
[2021-01-23] MEDS ORDERED: D50W 25 GM/50 ML SYRINGE IV ONE (05:34)
--- NOTE | 2021-01-23 11:06 | RAD REPORT ---
EXAM DESCRIPTION: US Pelvis Transvaginal CLINICAL HISTORY: The patient is 35 years old and is Female; ABD PAIN TECHNIQUE: Real-time transvaginal pelvic ultrasound with image documentation. Transvaginal imaging was used for better evaluation of the endometrium and adnexa. COMPARISON: No relevant prior studies available. FINDINGS: UTERUS/CERVIX: The uterus measures approximately 9.0 x 3.7 cm. The endometrium measures 0.5 cm. No myometrial mass. RIGHT OVARY: A large right ovarian cyst measuring approximately 5.5 cm is present. The right ova ry measures 5.7 x 4.7 x 4.5 cm. Normal arterial and venous color Doppler and spectral waveform is pre sent. Normal blood flow. LEFT OVARY: The left ovary measures 2.6 x 2.3 x 2.0 cm. Normal arterial and venous color Doppler and spectral waveform is present. Normal blood flow. FREE FLUID: No free fluid. BLADDER: Empty bladder which cannot be evaluated with this probe. IMPRESSION: 1. No evidence of torsion. 2. Large right ovarian cyst. Recommend follow-up pelvic ultrasound annually. Electronically signed by: Sheyla Ricks MD 01/23/2021 3:04 AM CDT Due to temporary technical issues with the PACS/Fluency reporting system, reports are being signed by the in house radiologist without review as a courtesy to ensure prompt reporting. The interpreting r adiologist is fully responsible for the content of the report.
--- NOTE | 2021-01-23 11:13 | RAD REPORT ---
EXAM DESCRIPTION: CT Abdomen and Pelvis With Intravenous Contrast CLINICAL HISTORY: The patient is 35 years old and is Female; ABD PAIN TECHNIQUE: Axial computed tomography images of the abdomen and pelvis with intravenous contrast. S agittal and coronal reformatted images were created and reviewed. This CT exam was performed using one or more of the following dose reduction techniques: automated exposure control, adjustment of t he mA and/or kV according to patient size, and/or use of iterative reconstruction technique. COMPARISON: No relevant prior studies available. FINDINGS: Lung bases: Unremarkable. No mass. No consolidation. ABDOMEN: Liver: Unremarkable. No mass. Gallbladder and bile ducts: Gallbladder is surgically absent. No ductal dilation. Pancreas: Unremarkable. No mass. No ductal dilation. Spleen: Unremarkable. No splenomegaly. Adrenals: The right adrenal gland is poorly visualized. Kidneys and ureters: Unremarkable. No solid mass. No hydronephrosis. Stomach and bowel: Unremarkable. No obstruction. No mucosal thickening. PELVIS: Appendix: No findings to suggest acute appendicitis. Bladder: Unremarkable. No mass. Reproductive: There is a 2 x 2 centimeter heterogeneous cystic appearing focus in the uterine fu ndus. There is the suggestion of a 4.5 x 3.2 cm right ovarian/adnexal cyst. ABDOMEN and PELVIS: Intraperitoneal space: There is free fluid in the cul-de-sac. No free air. Bones/joints: No acute fracture. No dislocation. Soft tissues: Unremarkable. Vasculature: Unremarkable. No abdominal aortic aneurysm. Lymph nodes: Unremarkable. No enlarged lymph nodes. IMPRESSION: 1. Gallbladder is surgically absent. 2. There is a 2 x 2 centimeter heterogeneous cystic appearing focus in the uterine fundus. There is the suggestion of a 4.5 x 3.2 cm right ovarian/adnexal cyst. Consider pelvic ultrasound for furthe r evaluation if clinically indicated. 3. There is free fluid in the cul-de-sac. Electronically signed by: Fran Robles MD 01/23/2021 3:03 AM CDT Due to temporary technical issues with the PACS/Fluency reporting system, reports are being signed by the in house radiologist without review as a courtesy to ensure prompt reporting. The interpreting r adiologist is fully responsible for the content of the report.
== END 2021-01-23 03:19 | disposition home or self-care (01) ==
LOC: ER 22:41
DX: N39.0 Urinary tract infection, site not specified (principal); N93.9 Abnormal uterine and vaginal bleeding, unspecified; N83.201 Unspecified ovarian cyst, right side; F17.210 Nicotine dependence, cigarettes, uncomplicated
CPT/HCPCS: 36415; 74177; 76830; 80048; 81003; 81015; 81025; 84702; 85025; 86900; 86901; 87077; 87086; 87088; 87186; J0696; J1200; J2405; J7030; Q9967

== ENCOUNTER 2021-05-05 17:50 | Emergency (ER) | payer SELFPAY ==
[2021-05-05] MEDS ORDERED: NA CHLORIDE 0.9% 1,000 ML ONE (18:45)
[2021-05-05] MEDS ORDERED: FAMOTIDINE 20 MG/2 ML VIAL IV ONE (18:45)
[2021-05-05] MEDS ORDERED: ASPIRIN 81 MG CHEWABLE TABLET ONE (18:45)
[2021-05-05 18:51] LABS: Urine Blood 3+ (Negative); Urine Glucose Negative (Negative); Urine Protein Negative (Negative); Urine Specific Gravity >=1.030 (1.005-1.030); Urine pH 5.5 (5.0-7.0)
[2021-05-05 18:53] LABS: Absolute Lymphocytes (CBC) 2.9 K/uL (0.7-4.9); Basophils % 0.8 % (0-1.3); Hematocrit 33.9 % (36.0-45.0); Lymphocytes % 37.8 % (15.3-44.8); MPV 8.3 fL (7.6-11.3); RBC Red Blood Cell Count 4.24 M/uL (3.86-4.86)
[2021-05-05 18:57] LABS: Protime INR 1.16
[2021-05-05 19:21] LABS: ALT/SGPT 29 U/L (12-78); AST/SGOT 12 U/L (15-37); Albumin 4.1 g/dL (3.4-5.0); Alkaline Phosphatase 70 U/L (45-117); BUN Blood Urea Nitrogen 11 mg/dL (7-18); Bicarbonate 28 mmol/L (21-32); Bilirubin Direct < 0.1 mg/dL (0-0.2); Bilirubin Total 0.1 mg/dL (0.2-1.0); Glucose Level 82 mg/dL (74-106); Lipase 98 U/L (73-393); Magnesium 1.9 mg/dL (1.8-2.4); NT PRO-BNP 22 pg/mL (<125); Potassium 3.6 mmol/L (3.5-5.1); Protein, Total 8.1 g/dL (6.4-8.2); Sodium Level 144 mmol/L (136-145); Troponin (Emerg Dept Use Only) < 0.02 ng/mL (0.0-0.045)
[2021-05-05 19:51] LABS: Urine Specific Gravity/Preg >1.030 (1.005-1.030)
[2021-05-05] MEDS ORDERED: NA CHLORIDE 0.9% 500 ML ONE (20:02)
[2021-05-05] MEDS ORDERED: FENTANYL CITR 100 MCG/2 ML ONE ×2 (20:51→20:54)
--- NOTE | 2021-05-05 21:36 | RAD REPORT ---
EXAM DESCRIPTION: Willy Single View05/05/2021 6:29 pm CLINICAL HISTORY: Chest pain COMPARISON: October 2020 FINDINGS: The lungs appear clear of acute infiltrate. The heart is normal size IMPRESSION: No acute abnormalities displayed
--- NOTE | 2021-05-05 21:36 | RAD REPORT ---
EXAM DESCRIPTION: CT - Chest For Pe Angio - 05/05/2021 9:13 pm CLINICAL HISTORY: Chest pain COMPARISON: None. TECHNIQUE: Dynamically enhanced axial 3 mm thick images of the chest were obtained during administra tion of <100> mL Isovue 370 IV contrast. Coronal and oblique reconstruction images were generated and reviewed. Exam utilizes a protocol for optimal evaluation of pulmonary arterial tree. Maximum intensity projections 3D imaging was utilized All CT scans are performed using dose optimization technique as appropriate and may include automated exposure control or mA/KV adjustment according to patient size. FINDINGS: A pulmonary embolus is not seen. A thoracic aortic aneurysm is not noted. A pleural effusion is not seen. A pericardial effusion is not seen. A lung consolidation is not present. IMPRESSION: Negative for a pulmonary embolism.
--- NOTE | 2021-05-05 21:46 | RAD REPORT ---
EXAM DESCRIPTION: CT - Abdomen Pelvis W Contrast - 05/05/2021 9:13 pm CLINICAL HISTORY: Abdominal pain COMPARISON: January 2021. TECHNIQUE: Computed axial tomography of the abdomen pelvis was obtained. 100 cc Isovue-300 was admin istered intravenously. Oral contrast was given All CT scans are performed using dose optimization technique as appropriate and may include automated exposure control or mA/KV adjustment according to patient size. FINDINGS: A cholecystectomy. The liver, spleen, pancreas, adrenal and kidneys appear unremarkable. There is no evidence of diverticulitis. No adnexal mass seen. Small umbilical hernia IMPRESSION: No acute abnormality is displayed.
--- NOTE | 2021-05-05 21:48 | ER ---
Nurse's Notes [facility] Name: Taisha Gavin Age: 35 yrs Sex: Female : 1985 Arrival Date: 05/05/2021 Time: 17:53 Bed 13 Private MD: Diagnosis: Epigastric abdominal tenderness;Chest pain, unspecified;Chest pain on breathing;Gastro-esophageal reflux disease without esophagitis Presentation: 05/05 18:03 Chief complaint: Patient states: Epigastric pain that started at 1300. Pt had Gall ch5 bladder out 13 years ago. Also has BILLS. Coronavirus screen: Vaccine status: Patient reports receiving the 2nd dose of the covid vaccine. Ebola Screen: Patient negative for fever greater than or equal to 101.5 degrees Fahrenheit, and additional compatible Ebola Virus Disease symptoms Patient denies exposure to infectious person. Patient denies travel to an Ebola-affected area in the 21 days before illness onset. Initial Sepsis Screen: Does the patient meet any 2 criteria? No. Patient's initial sepsis screen is negative. Does the patient have a suspected source of infection? No. Patient's initial sepsis screen is negative. Risk Assessment: Do you want to hurt yourself or someone else? Patient reports no desire to harm self or others. Onset of symptoms was May 05, 2021. 18:03 Acuity: CRISTHIAN 3 ch5 18:03 Method Of Arrival: Ambulatory [facility] Triage Assessment: 18:06 General: Appears uncomfortable, Behavior is calm. Pain: Complains of pain in epigastric ch5 area. 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 - Social history:: Smoking status: Patient denies any tobacco usage or history of. - Family history:: not pertinent. Screenin:16 Abuse screen: Denies threats or abuse. Nutritional screening: No deficits noted. oh Tuberculosis screening: No symptoms or risk factors identified. Fall Risk None identified. Assessment: 18:14 Pain: Complains of pain in epigastric area Pain does not radiate. Pain began 30 min oh ago. Cardiovascular: No deficits noted. Chest pain. 18:14 General: Appears uncomfortable, Behavior is calm, cooperative, appropriate for age, oh Reports epigastric pain, after picking up load at [employer]. pt states she feels a knot. Neuro: No deficits noted. GI: Reports upper abdominal pain. : No deficits noted. 18:52 Reassessment: pt started on ionated contrast \T\ 6:45pm. pt to be sent to CT \T\ 8:45pm. oh 19:20 Reassessment: Pt sitting up in bed playing on phone. Pt co pain to back , epigastric dc2 area with PRS 9/10 and describes as a stabbing pain . VSS. Call light within reach , in NAD . will notify MD of pain. 19:20 General: Appears in no apparent distress. comfortable, well groomed, well developed. dc2 Pain: Complains of pain in chest , upper abdomen and epigastric area. Pain does not radiate. Pain currently is 9 out of 10 on a pain scale. Quality of pain is described as stabbing. Neuro: No deficits noted. Respiratory: No deficits noted. GI: No deficits noted. Musculoskeletal: No deficits noted. 20:22 Reassessment: Pt call for pain medication. Provider made aware. 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 Will wait dc2 in the lobby. Pt denies any pain or discomfort at this time. Vital Signs: 18:03 BP 137 / 85; Pulse 94; Resp 18; Temp 97.3; Pulse Ox 100% on R/A; Weight 82.55 kg; ch5 Height 5 ft. 3 in. (160.02 cm); Pain 9/10; 19:20 BP 131 / 90; Pulse 79; Resp 17; Temp 98.0; Pulse Ox 100% on R/A; Pain 9/10; dc2 20:57 BP 121 / 77; Pulse 64; Resp 17; Pulse Ox 100% ; Pain 0/10; dc2 21:00 Pain 0/10; dc2 21:45 BP 124 / 78; Pulse 76; Resp 17; Temp 98.0; Pulse Ox 100% ; Pain 0/10; dc2 18:03 Body Mass Index 32.24 (82.55 kg, 160.02 cm) [facility] ED Course: 17:53 Patient arrived in ED. mr 18:05 Rafaela Serrano, RN is Primary Nurse. oh 18:06 Triage completed. ch5 18:06 Arm band placed on left wrist. ch5 18:11 Clark Sagastume MD is Attending Physician. ernesto 18:11 Kota Padgett PA is PHCP. jr8 18:16 Bed in low position. Call light in reach. 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 Pulse ox on. NIBP on. oh 18:16 No provider procedures requiring assistance completed. Patient maintains SpO2 oh saturation greater than 95% on room air. 18:29 XRAY Chest (1 view) In Process Unspecified. EDMS 18:50 Basic Metabolic Panel Sent. oh 18:50 CBC with Diff Sent. oh 18:50 LFT's Sent. oh 18:50 Magnesium Sent. oh 18:50 NT PRO-BNP Sent. oh 18:50 PT-INR Sent. oh 18:50 Troponin (emerg Dept Use Only) Sent. oh 18:51 Inserted saline lock: 20 gauge in left antecubital area, using aseptic technique. Blood oh collected. 18:57 Kota Padgett PA is PHCP. jr8 19:14 Urine --Ancillary (enter results) Sent. oh 21:13 CT Chest For PE Angio In Process Unspecified. EDMS 21:13 CT Abd/Pelvis - PO and IV Contrast In Process Unspecified. EDMS 21:45 IV discontinued, intact, bleeding controlled, No redness/swelling at site. Pressure dc2 dressing applied. 21:48 Osvaldo Hendrix MD is Referral Physician. jr8 21:48 Mickey Romero MD is Referral Physician. jr8 Administered Medications: 18:30 Drug: Pepcid (famotidine) 20 mg Route: IVP; Site: left antecubital; oh 18:32 Drug: Aspirin Chewable Tablet 324 mg Route: PO; oh 18:36 Drug: NS 0.9% 1000 ml Route: IV; Rate: 125 ml/hr; Site: left antecubital; oh 19:40 Drug: NS 0.9% 500 ml Route: IV; Rate: bolus; Site: left antecubital; sj1 20:33 Drug: fentaNYL (PF) 50 mcg Route: IVP; Site: left antecubital; mr2 21:00 Follow up: Pain 0/10 Adult dc2 21:16 Follow up: Response: Pain is decreased dc2 22:20 Follow up: Response: Pain is decreased dc2 Outcome: 21:48 Discharge ordered by MD. cardoso 22:00 Discharged to home dc2 22:00 Condition: good 22:00 Discharge instructions given to patient, Instructed on discharge instructions, follow up and referral plans. Demonstrated understanding of instructions, follow-up care, Prescriptions given X 3. 22:23 Patient left the ED. dc2 Signatures: Dispatcher [employer] EDMS Clark Sagastume MD MD cha Rivera, Mary mr Kota Padgett PA PA jr8 Farrukh Juárez, RN RN ch5 Ashok Steve RN RN mr2 Sharri Rock RN RN dc2 Lisandra Patel RN RN 1 Rafaela Serrano RN RN oh Corrections: (The following items were deleted from the chart) 18:07 18:06 PMHx: fluid retention; ch5 ch5 18:07 18:06 PMHx: Migraines; ch5 ch5
--- NOTE | 2021-05-05 21:48 | EDPHYS ---
Physician Documentation [facility] Name: Taisha Gavin Age: 35 yrs Sex: Female : 1985 Arrival Date: 05/05/2021 Time: 17:53 Bed 13 Private MD: ED Physician Clark Sagastume HPI: 05/05 18:30 This 35 yrs old Black Female presents to ER via Ambulatory with complaints of Chest ernesto Pain. 18:30 The patient or guardian reports chest pain that is located primarily in the epigastric ernesto area, anterior chest wall. The pain does not radiate. Associated signs and symptoms: The patient has no apparent associated signs or symptoms. The chest pain is described as sharp. Duration: The patient or guardian reports multiple episodes, that are intermittent. Modifying factors: The symptoms are alleviated by nothing. the symptoms are aggravated by breathing. Severity of pain: At its worst the pain was mild moderate in the emergency department the pain has improved. The patient has not experienced similar symptoms in the past. 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 - Social history:: Smoking status: Patient denies any tobacco usage or history of. - Family history:: not pertinent. ROS: 18:30 Constitutional: Negative for fever, chills, and weight loss, Eyes: Negative for injury, ernesto pain, redness, and discharge, ENT: Negative for injury, pain, and discharge, Neck: Negative for injury, pain, and swelling, Respiratory: Negative for shortness of breath, cough, wheezing, and pleuritic chest pain, Back: Negative for injury and pain, : Negative for injury, bleeding, discharge, and swelling, MS/Extremity: Negative for injury and deformity, Skin: Negative for injury, rash, and discoloration, Neuro: Negative for headache, weakness, numbness, tingling, and seizure, Psych: Negative for depression, anxiety, suicide ideation, homicidal ideation, and hallucinations, Allergy/Immunology: Negative for hives, rash, and allergies, Endocrine: Negative for neck swelling, polydipsia, polyuria, polyphagia, and marked weight changes, Hematologic/Lymphatic: Negative for swollen nodes, abnormal bleeding, and unusual bruising. 18:30 Cardiovascular: Positive for chest pain, of the chest. 18:30 Abdomen/GI: Positive for abdominal pain, of the epigastric area. Exam: 18:30 Constitutional: This is a well developed, well nourished patient who is awake, alert, ernesto and in no acute distress. Head/Face: Normocephalic, atraumatic. Eyes: Pupils equal round and reactive to light, extra-ocular motions intact. Lids and lashes normal. Conjunctiva and sclera are non-icteric and not injected. Cornea within normal limits. Periorbital areas with no swelling, redness, or edema. ENT: Nares patent. No nasal discharge, no septal abnormalities noted. Tympanic membranes are normal and external auditory canals are clear. Oropharynx with no redness, swelling, or masses, exudates, or evidence of obstruction, uvula midline. Mucous membranes moist. Neck: Trachea midline, no thyromegaly or masses palpated, and no cervical lymphadenopathy. Supple, full range of motion without nuchal rigidity, or vertebral point tenderness. No Meningismus. Chest/axilla: Normal chest wall appearance and motion. Nontender with no deformity. No lesions are appreciated. Cardiovascular: Regular rate and rhythm with a normal S1 and S2. No gallops, murmurs, or rubs. Normal PMI, no JVD. No pulse deficits. Respiratory: Lungs have equal breath sounds bilaterally, clear to auscultation and percussion. No rales, rhonchi or wheezes noted. No increased work of breathing, no retractions or nasal flaring. Back: No spinal tenderness. No costovertebral tenderness. Full range of motion. Female : Normal external genitalia. Skin: Warm, dry with normal turgor. Normal color with no rashes, no lesions, and no evidence of cellulitis. MS/ Extremity: Pulses equal, no cyanosis. Neurovascular intact. Full, normal range of motion. Neuro: Awake and alert, GCS 15, oriented to person, place, time, and situation. Cranial nerves II-XII grossly intact. Motor strength 5/5 in all extremities. Sensory grossly intact. Cerebellar exam normal. Normal gait. Psych: Awake, alert, with orientation to person, place and time. Behavior, mood, and affect are within normal limits. 18:30 Abdomen/GI: Inspection: abdomen appears normal, Bowel sounds: normal, Palpation: mild abdominal tenderness, in the epigastric area, Liver: no appreciated palpable abnormalities, Hernia: not appreciated. 18:31 ECG was reviewed by the Attending Physician. [facility] Vital Signs: 18:03 BP 137 / 85; Pulse 94; Resp 18; Temp 97.3; Pulse Ox 100% on R/A; Weight 82.55 kg; ch5 Height 5 ft. 3 in. (160.02 cm); Pain 9/10; 19:20 BP 131 / 90; Pulse 79; Resp 17; Temp 98.0; Pulse Ox 100% on R/A; Pain 9/10; dc2 20:57 BP 121 / 77; Pulse 64; Resp 17; Pulse Ox 100% ; Pain 0/10; dc2 21:00 Pain 0/10; dc2 21:45 BP 124 / 78; Pulse 76; Resp 17; Temp 98.0; Pulse Ox 100% ; Pain 0/10; dc2 18:03 Body Mass Index 32.24 (82.55 kg, 160.02 cm) [facility] MDM: 18:11 Patient medically screened. ernesto 18:46 Differential diagnosis: abnormal EKG, acute myocardial infarction, chest wall pain, ernesto esophagitis, gastritis, hiatal hernia, pancreatitis, pneumonia, pulmonary embolus, stable angina, thoracic aortic disection, unstable angina. HEART Score: History: Slightly Suspicious (0), ECG: Normal (0), Age: < or = 45 years (0), Risk Factors: No Risk Factors Known (0), Troponin: < or = 1 x Normal Limit (0), Total Score = 0. The patient's deep vein thrombosis risk score was calculated as follows: Total Score: 0. This patient was found to be at low risk for a deep vein thrombosis by using the Well's assessment criteria. The patient's pulmonary embolism risk score was calculated as follows: Total Score: 0-2 points. This patient was found to be at low risk for a pulmonary embolism by using the Well's assessment criteria. GABRIEL Risk Score: TOTAL SCORE = 0. Data reviewed: vital signs, nurses notes, lab test result(s), EKG, radiologic studies, CT scan, plain films. Data interpreted: library monitor: rate is 94 beats/min, rhythm is regular, Pulse oximetry: on room air is 100 %. Test interpretation: by ED physician or midlevel provider: ECG, plain radiologic studies. Counseling: I had a detailed discussion with the patient and/or guardian regarding: the historical points, exam findings, and any diagnostic results supporting the discharge/admit diagnosis, lab results, radiology results, the need for outpatient follow up. 20:12 Special discussion: Based on the patient's history, exam, and Dx evaluation, there is jr8 no indication for emergent intervention or inpatient Tx. It is understood by the patient/guardian that if the Sx's persist or worsen they need to return immediately for re-evaluation. 05/05 18:16 Order name: Basic Metabolic Panel [facility] 05/05 18:16 Order name: CBC with Diff [facility] 05/05 18:16 Order name: LFT's [facility] 05/05 18:16 Order name: Magnesium [facility] 05/05 18:16 Order name: NT PRO-BNP [facility] 05/05 18:16 Order name: PT-INR [facility] 05/05 18:16 Order name: Troponin (emerg Dept Use Only) [facility] 05/05 18:16 Order name: Lipase; Complete Time: 19:31 [facility] 05/05 18:16 Order name: Urine Culture [facility] 05/05 18:17 Order name: Basic Metabolic Panel; Complete Time: 19:31 [facility] 05/05 18:17 Order name: CBC with Automated Diff; Complete Time: 18:57 [facility] 05/05 18:17 Order name: Liver (Hepatic) Function; Complete Time: 19:31 [facility] 05/05 18:17 Order name: Magnesium; Complete Time: 19:31 [facility] 05/05 18:16 Order name: XRAY Chest (1 view); Complete Time: 21:38 [facility] 05/05 18:16 Order name: EKG; Complete Time: 18:17 [facility] 05/05 18:17 Order name: NT PRO-BNP; Complete Time: 19:31 [facility] 05/05 18:17 Order name: Protime (+INR); Complete Time: 19:09 [facility] 05/05 18:17 Order name: Troponin (Emerg Dept Use Only); Complete Time: 19:31 [facility] 05/05 18:21 Order name: CT Chest For PE Angio; Complete Time: 21:38 [facility] 05/05 18:21 Order name: CT Abd/Pelvis - PO and IV Contrast; Complete Time: 21:47 [facility] 05/05 18:51 Order name: Urine Dipstick-Ancillary; Complete Time: 18:54 [facility] 05/05 18:53 Order name: Urine --Ancillary (enter results) tt3 05/05 18:53 Order name: Urine --Ancillary; Complete Time: 20:12 [facility] 05/05 19:42 Order name: SARS-COV-2 RT PCR; Complete Time: 20:12 [facility] 05/05 18:16 Order name: Cardiac monitoring; Complete Time: 18:44 [facility] 05/05 18:16 Order name: EKG - Nurse/Tech; Complete Time: 18:44 [facility] 05/05 18:16 Order name: IV Saline Lock; Complete Time: 18:44 [facility] 05/05 18:16 Order name: Labs collected and sent; Complete Time: 18:44 [facility] 05/05 18:16 Order name: O2 Per Protocol; Complete Time: 18:44 [facility] 05/05 18:16 Order name: O2 Sat Monitoring; Complete Time: 18:44 [facility] 05/05 18:16 Order name: Urine Dipstick-Ancillary (obtain specimen); Complete Time: 19:52 [facility] Administered Medications: 18:30 Drug: Pepcid (famotidine) 20 mg Route: IVP; Site: left antecubital; oh 18:32 Drug: Aspirin Chewable Tablet 324 mg Route: PO; oh 18:36 Drug: NS 0.9% 1000 ml Route: IV; Rate: 125 ml/hr; Site: left antecubital; oh 19:40 Drug: NS 0.9% 500 ml Route: IV; Rate: bolus; Site: left antecubital; sj1 20:33 Drug: fentaNYL (PF) 50 mcg Route: IVP; Site: left antecubital; mr2 21:00 Follow up: Pain 0/10 Adult dc2 21:16 Follow up: Response: Pain is decreased dc2 22:20 Follow up: Response: Pain is decreased dc2 Disposition Summary: 05/05/21 21:48 Discharge Ordered Location: Home jr8 Problem: new jr8 Symptoms: have improved jr8 Condition: Stable jr8 Diagnosis - Epigastric abdominal tenderness jr8 - Chest pain, unspecified jr8 - Chest pain on breathing jr8 - Gastro-esophageal reflux disease without esophagitis jr8 Followup: [facility] - With: Private Physician - When: 2 - 3 days - Reason: Recheck today's complaints, Continuance of care, Re-evaluation by your physician Followup: ernesto - With: - When: 2 - 3 days - Reason: Recheck today's complaints, Re-evaluation by your physician Followup: ernesto - With: - When: 2 - 3 days - Reason: Recheck today's complaints, Re-evaluation by your physician Discharge Instructions: - Discharge Summary Sheet ernesto - Abdominal Pain, Adult ernesto - Nonspecific Chest Pain, Adult ernesto - Gastroesophageal Reflux Disease, Adult ernesto - Nonspecific Chest Pain, Adult, [id number] ernesto - Aspirin and Your Heart ernesto Forms: - Medication Reconciliation Form jr8 - Thank You Letter jr8 - Antibiotic Education jr8 - Prescription Opioid Use jr8 Prescriptions: - Carafate 1 gram Oral Tablet - take 1 tablet by ORAL route 4 times per day take on an empty stomach, beginning ernesto on waking and last dose at bedtime; 40 tablet; Refills: 0, Product Selection Permitted - Pepcid 20 mg Oral Tablet - take 1 tablet by ORAL route every 12 hours for 15 days; 30 tablet; Refills: 0, ernesto Product Selection Permitted - dicyclomine 20 mg Oral Tablet - take 1 tablet by ORAL route 4 times per day; 20 tablet; Refills: 0, Product ernesto Selection Permitted Addendum: 05/07/2021 10:58 Co-signature as Attending Physician, Clark Sagastume MD I agree with the assessment and c torres plan of care. Signatures: Dispatcher [employer] EDClark Frazier MD MD cha Roszak, Josh, PA PA jr8 Farrukh Juárez RN RN ch5 Ashok Steve RN RN mr2 Lisandra Patel RN RN sj1 Rafaela Serrano RN RN ks Sharri Rock RN dc2 Corrections: (The following items were deleted from the chart) 05/05 18:07 18:06 PMHx: fluid retention; ch5 ch5 18:07 18:06 PMHx: Migraines; ch5 ch5 18:50 18:17 CORONAVIRUS+BRZ ordered. [facility] EDMS
[2021-05-05 22:27] VITALS: O2SAT 100
[2021-05-05 22:29] VITALS: TEMP 98
[2021-05-05 22:32] VITALS: BP 124/78
--- NOTE | 2021-05-06 16:59 | EKG ---
Test Date: 2021-05-05 Test Time: 18:32:40 Proof Tester: RAJESH MEASUREMENT RESULTS: Intervals: Rate: 77 VA: 148 QRSD: 86 QT: 352 QTc: 398 [place]: P: 31 VA: 148 QRS: 43 T: 23 INTERPRETIVE STATEMENTS: Normal sinus rhythm Normal ECG Compared to ECG 10/13/2019 01:16:02 No significant changes Electronically Signed On 05-06-21 16:57:56 CDT by Osvaldo Hendrix
== END 2021-05-05 22:23 | disposition home or self-care (01) ==
LOC: ER 17:50
DX: K21.9 Gastro-esophageal reflux disease without esophagitis (principal); R10.816 Epigastric abdominal tenderness; R07.9 Chest pain, unspecified; Z20.822 Contact with and (suspected) exposure to COVID-19
CPT/HCPCS: 36415; 71045; 71275; 74177; 80048; 80076; 81003; 81025; 83690; 83735; 83880; 84484; 85025; 85610; 87086; 87088; 93005; 96374; 96375; 99285; J3010; J7030; J7040; Q9967; U0003

== ENCOUNTER 2021-09-28 16:07 | Emergency (ER) | payer SELFPAY ==
[2021-09-28] MEDS ORDERED: METOCLOPRAMIDE 10 MG/2mL INJ ONE (16:52)
[2021-09-28] MEDS ORDERED: DIPHENHYDRAMINE 50 MG/ML VIAL ONE (16:52)
[2021-09-28] MEDS ORDERED: acetaZOLAMIDE 250 MG TAB ONE (16:53)
--- NOTE | 2021-09-28 17:28 | RAD REPORT ---
EXAM DESCRIPTION: CT - Head Brain Wo Cont - 09/28/2021 5:03 pm CLINICAL HISTORY: Dizziness COMPARISON: 2017 TECHNIQUE: Computed axial tomography of the head was obtained. IV contrast was not requested. All CT scans are performed using dose optimization technique as appropriate and may include automated exposure control or mA/KV adjustment according to patient size. FINDINGS: An intracranial bleed is not seen . The ventricles are normal in caliber. No extra-axial fluid collection is noted. Empty sella turcica Fluid within the sinuses/ mastoids is not seen. IMPRESSION: No acute intracranial abnormality is seen. If patient's symptoms persist MRI of the bra in would be recommended.
--- NOTE | 2021-09-28 17:59 | ER ---
Nurse's Notes [facility] Name: Taisha Gavin Age: 36 yrs Sex: Female : 1985 Arrival Date: 09/28/2021 Time: 16:09 Bed 11 Private MD: Diagnosis: Headache Presentation: 09/28 16:24 Chief complaint: EMS states: severe headache X 2 weeks, has hx of pseudotumor cerebri iw and has been out of her meds for 2 months, EMS gave tylenol and zofran with some relief. Coronavirus screen: At this time, the client does not indicate any symptoms associated with coronavirus-19. Ebola Screen: Patient negative for fever greater than or equal to 101.5 degrees Fahrenheit, and additional compatible Ebola Virus Disease symptoms Patient denies exposure to infectious person. Patient denies travel to an Ebola-affected area in the 21 days before illness onset. No symptoms or risks identified at this time. Initial Sepsis Screen: Does the patient meet any 2 criteria? No. Patient's initial sepsis screen is negative. Does the patient have a suspected source of infection? No. Patient's initial sepsis screen is negative. Risk Assessment: Do you want to hurt yourself or someone else? Patient reports no desire to harm self or others. 16:24 Method Of Arrival: EMS: [facility] iw 16:24 Acuity: CRISTHIAN 3 iw 16:58 Onset of symptoms was September 15, 2021. Care prior to arrival: Medication(s) given: iw Tylenol, zofran IV initiated. 20 GA, in the left antecubital area. Triage Assessment: 18:20 General: Appears uncomfortable. Pain: Pain began gradually, Also complains of no other kd3 associated symptoms. 18:20 Headache History: The patient has had previous headaches. General: Appears Behavior is kd3 calm, cooperative. Pain: Complains of pain in right ear. Historical: - Allergies: 16:57 Codeine; iw 16:57 Lasix; iw - PSHx: 16:26 Appendectomy; section; Cholecystectomy; Tubal reversal; iw - Immunization history:: Adult Immunizations unknown. - Social history:: Smoking status: unknown. Screenin:19 Abuse screen: Denies threats or abuse. Denies injuries from another. Nutritional kd3 screening: No deficits noted. Tuberculosis screening: No symptoms or risk factors identified. Fall Risk IV access (20 points). Assessment: 16:45 General: Appears uncomfortable, Behavior is cooperative. Pain: Complains of pain in ke1 headache 10/10 Pain Quality of pain is described as pulsating. Neuro: Level of Consciousness is awake, alert, obeys commands, Oriented to person, place, time, situation. Cardiovascular: Capillary refill < 3 seconds Patient's skin is warm and dry. Pulses are all present. Respiratory: Airway is patent Respiratory effort is even, unlabored, Respiratory pattern is regular, symmetrical. 17:24 Pain: Pain currently is 4 out of 10 on a pain scale. ke1 Vital Signs: 16:30 BP 135 / 78; Pulse 85; Resp 18; Temp 98.4; Pulse Ox 99% ; ke1 ED Course: 16:09 Patient arrived in ED. iw 16:13 Kota Padgett PA is PHCP. jr8 16:13 Clark Sagastume MD is Attending Physician. jr8 16:26 Triage completed. iw 16:45 Atilio Flaherty, BALWINDER is Primary Nurse. ke1 16:57 Arm band placed on. iw 17:02 Maintain EMS IV. Dressing intact. Site clean \T\ dry. ke1 17:03 CT Head Brain wo Cont In Process Unspecified. EDMS 17:58 Abrahan Ruano MD is Referral Physician. jr8 18:19 Patient has correct armband on for positive identification. Call light in reach. kd3 18:19 No provider procedures requiring assistance completed. IV discontinued, intact, kd3 bleeding controlled, No redness/swelling at site. Pressure dressing applied. Administered Medications: 16:59 Drug: acetaZOLAMIDE 500 mg Route: PO; ke1 17:24 Follow up: Response: No adverse reaction ke1 16:59 Drug: Reglan (metoCLOPramide) 10 mg Route: IVP; Site: left antecubital; ke1 17:23 Follow up: no nausea ke1 16:59 Drug: Benadryl (diphenhydrAMINE) 25 mg Route: IVP; Site: left antecubital; ke1 17:23 Follow up: Response: Nausea is decreased; no more nausea ke1 Intake: Outcome: 17:59 Discharge ordered by . jr8 18:20 Discharged to home ambulatory. kd3 18:20 Condition: stable 18:20 Discharge instructions given to patient, family, Instructed on discharge instructions, follow up and referral plans. medication usage, Demonstrated understanding of instructions, follow-up care, medications, Prescriptions given X 2. 18:33 Patient left the ED. ke1 Signatures: Dispatcher [employer] EDEssie Hernandez RN RN iw Roszak, Josh, PA PA jr8 Yanci Lomax RN RN kd3 Atilio Flaherty RN RN ke1 Corrections: (The following items were deleted from the chart) 18:31 16:45 Respiratory: Airway is patent Respiratory effort is even, unlabored, Respiratory ke1 pattern is regular, symmetrical, ke1
--- NOTE | 2021-09-28 17:59 | EDPHYS ---
Physician Documentation [facility] Name: Taisha Gavin Age: 36 yrs Sex: Female : 1985 Arrival Date: 09/28/2021 Time: 16:09 Bed 11 Private MD: ED Physician Clark Sagastume HPI: 09/28 17:56 This 36 yrs old Black Female presents to ER via EMS with complaints of Headache. jr8 17:56 Severity of symptoms: At its worst the pain was moderate, in the emergency department jr8 the pain is unchanged. Headache History: The patient has had previous headaches and this one is similar to previous episodes. The patient has experienced similar episodes in the past, a few times. The patient has not recently seen a physician. Patient with history of pseudo tumor cerebri. Has been off her diamox. Now with headache and blurred vision . Historical: - Allergies: 16:57 Codeine; iw 16:57 Lasix; iw - PSHx: 16:26 Appendectomy; section; Cholecystectomy; Tubal reversal; iw - Immunization history:: Adult Immunizations unknown. - Social history:: Smoking status: unknown. ROS: 17:56 Eyes: Negative for injury, pain, redness, and discharge, ENT: Negative for injury, jr8 pain, and discharge, Neck: Negative for injury, pain, and swelling, Cardiovascular: Negative for chest pain, palpitations, and edema, Respiratory: Negative for shortness of breath, cough, wheezing, and pleuritic chest pain, Abdomen/GI: Negative for abdominal pain, nausea, vomiting, diarrhea, and constipation, Back: Negative for injury and pain, MS/Extremity: Negative for injury and deformity, Skin: Negative for injury, rash, and discoloration. 17:56 Neuro: Positive for headache, visual changes. Exam: 17:56 Eyes: Pupils equal round and reactive to light, extra-ocular motions intact. Lids and jr8 lashes normal. Conjunctiva and sclera are non-icteric and not injected. Cornea within normal limits. Periorbital areas with no swelling, redness, or edema. Neck: Trachea midline, no thyromegaly or masses palpated, and no cervical lymphadenopathy. Supple, full range of motion without nuchal rigidity, or vertebral point tenderness. No Meningismus. Cardiovascular: Regular rate and rhythm with a normal S1 and S2. No gallops, murmurs, or rubs. Normal PMI, no JVD. No pulse deficits. Respiratory: Lungs have equal breath sounds bilaterally, clear to auscultation and percussion. No rales, rhonchi or wheezes noted. No increased work of breathing, no retractions or nasal flaring. Abdomen/GI: Soft, non-tender, with normal bowel sounds. No distension or tympany. No guarding or rebound. No evidence of tenderness throughout. Skin: Warm, dry with normal turgor. Normal color with no rashes, no lesions, and no evidence of cellulitis. MS/ Extremity: Pulses equal, no cyanosis. Neurovascular intact. Full, normal range of motion. Neuro: Awake and alert, GCS 15, oriented to person, place, time, and situation. Cranial nerves II-XII grossly intact. Motor strength 5/5 in all extremities. Sensory grossly intact. Cerebellar exam normal. Normal gait. Vital Signs: 16:30 BP 135 / 78; Pulse 85; Resp 18; Temp 98.4; Pulse Ox 99% ; ke1 MDM: 16:19 Patient medically screened. jr8 17:56 Data reviewed: vital signs, nurses notes, radiologic studies, CT scan. Data jr8 interpreted: Pulse oximetry: on room air is 100 %. Interpretation: normal. Counseling: I had a detailed discussion with the patient and/or guardian regarding: the historical points, exam findings, and any diagnostic results supporting the discharge/admit diagnosis, lab results, radiology results, the need for outpatient follow up, a neurologist, to return to the emergency department if symptoms worsen or persist or if there are any questions or concerns that arise at home. Response to treatment: the patient's symptoms have markedly improved after treatment. 09/28 16:32 Order name: CT Head Brain wo Cont; Complete Time: 17:29 jr8 09/28 16:20 Order name: IV; Complete Time: 17:02 jr8 Administered Medications: 16:59 Drug: acetaZOLAMIDE 500 mg Route: PO; ke1 17:24 Follow up: Response: No adverse reaction ke1 16:59 Drug: Reglan (metoCLOPramide) 10 mg Route: IVP; Site: left antecubital; ke1 17:23 Follow up: no nausea ke1 16:59 Drug: Benadryl (diphenhydrAMINE) 25 mg Route: IVP; Site: left antecubital; ke1 17:23 Follow up: Response: Nausea is decreased; no more nausea ke1 Disposition Summary: 09/28/21 17:59 Discharge Ordered Location: Home jr8 Problem: new jr8 Symptoms: have improved jr8 Condition: Stable jr8 Diagnosis - Headache jr8 Followup: jr8 - With: Abrahan Ruano MD - When: 2 - 3 days - Reason: Recheck today's complaints, Continuance of care, Re-evaluation by your physician Discharge Instructions: - Discharge Summary Sheet jr8 - Migraine Headache jr8 Forms: - Medication Reconciliation Form jr8 - Thank You Letter jr8 - Antibiotic Education jr8 - Prescription Opioid Use jr8 Prescriptions: - Fioricet 50-300-40 mg Oral capsule - take 2 capsule by ORAL route every 4 hours As needed; 20 capsule; Refills: 0, jr8 Product Selection Permitted - acetazolamide 500 mg Oral capsule, extended release - take 1 capsule by ORAL route 2 times per day; 30 capsule; Refills: 0, Product jr8 Selection Permitted Signatures: Dispatcher [employer] Essie Howell, RN RN Kota Perez PA PA jr8 Yanci Lomax RN RN kd3 Atilio Flaherty RN RN ke1
[2021-09-28 19:44] VITALS: BP 135/78; TEMP 98.4; O2SAT 99
== END 2021-09-28 18:33 | disposition home or self-care (01) ==
LOC: ER 16:07
DX: R51.9 Headache, unspecified (principal); Z88.5 Allergy status to narcotic agent; Z88.8 Allergy status to other drugs, medicaments and biological substances
CPT/HCPCS: 70450; 96374; 96375; 99284; J1200; J2765

== ENCOUNTER 2021-10-30 23:51 | Emergency (ER) | payer SELFPAY ==
--- OUTSIDE RECORDS SUMMARY | 2021-10-30 23:53 | XMS REPORT | Continuity of Care Document ---
:1985 Author Organization [facility] t Address [address] [place] [address] Care Team Providers Name Role Phone Pcp, Does Not Have A Primary Care Physician Nurse, Pob Immunization Attending Clinician Unavailable Khalif Coats DO Attending Clinician Problems This patient has no known problems. Allergies, Adverse Reactions, Alerts This patient has no known allergies or adverse reactions. Social History Social Habit Start Date Stop Date Quantity Comments Source Sex Assigned [birth year] [facility] 00:00:00 00:00:00 Medical Branch Medications This patient has no known medications. Immunizations Ordered Filled Immunization Date Status Comments Sour e Immunization Name Name SARS-COV-2 COVID-19 2020-12-12 Completed Unive rsity of PFIZER VACCINE 00:00:00 [facility] Branch Procedures Procedure Date / Time Performed Performing Clinician Irene e SARS-COV-2 COVID-19 2020-12-12 14:31:35 Doctor Unassigned, No [facility] [place] VACCINE,0.3ML,IM Name Medical Branch (PFIZER) Plan of Care Planned Activity Planned Date Details Comments Source Future Scheduled 2021-04-08 INFLUENZA VACCINE [facility] Test 00:00:00 (Season Ended) [code Medical Branch = INFLUENZA VACCINE (Season Ended)] Future Scheduled 2021-01-02 SARS-CoV-2 [facility] Test 00:00:00 (COVID-19) Vaccine [facility] ranch (2 - Pfizer 2-dose series) [code = SARS-CoV-2 (COVID-19) Vaccine (2 - Pfizer 2-dose series)] Future Scheduled 2005 Screening for [facility] Test 00:00:00 malignant neoplasm Medical [facility] ranch of cervix (procedure) [code = 898216467] Future Scheduled 2003 [facility]ap,and Td [facility] Vacc[facility] (1 - Tdap) Medical Branch [code = DTaP,Tdap,and Td Vaccines (1 - Tdap)] Future Scheduled 2002 Hepatitis C [facility] Test 00:00:00 screening Medical Branch (procedure) [code = [id number]] Future Scheduled 1996 [facility] ([facility]) [code = Medical Branch [id number]] Future Scheduled 1985 VARICELLA VACCINES [facility] Test 00:00:00 (1 of 2 - 2-dose [facility] childhood series) [code = VARICELLA VACCINES (1 of 2 - 2-dose childhood series)] Results This patient has no known results.
[2021-10-31] MEDS ORDERED: MORPHINE 4 MG/ML SYR ONE (02:39)
[2021-10-31 02:48] LABS: Absolute Lymphocytes (CBC) 2.2 K/uL (0.7-4.9); Hematocrit 34.9 % (36.0-45.0); MPV 8.6 fL (7.6-11.3); RBC Red Blood Cell Count 4.04 M/uL (3.86-4.86)
[2021-10-31 03:07] LABS: BUN Blood Urea Nitrogen 10 mg/dL (7-18); Bicarbonate 27 mmol/L (21-32); Glucose Level 109 mg/dL (74-106); Potassium 3.4 mmol/L (3.5-5.1); Sodium Level 138 mmol/L (136-145)
[2021-10-31 03:13] LABS: Troponin High Sensitivity < 3.0 pg/mL (<58.9)
--- NOTE | 2021-10-31 03:32 | ER ---
Nurse's Notes [facility] Name: Taisha Gavin Age: 36 yrs Sex: Female : 1985 Arrival Date: 10/30/2021 Time: 23:54 Bed 14 Private MD: Diagnosis: Chest pain, unspecified;Anemia, unspecified Presentation: 10/30 23:59 Chief complaint: Patient states: Epigastric pain, near syncope. Coronavirus screen: christy Vaccine status: Patient reports receiving the 2nd dose of the covid vaccine. Ebola Screen: Patient negative for fever greater than or equal to 101.5 degrees Fahrenheit, and additional compatible Ebola Virus Disease symptoms Patient denies exposure to infectious person. Patient denies travel to an Ebola-affected area in the 21 days before illness onset. Initial Sepsis Screen: Does the patient meet any 2 criteria? No. Patient's initial sepsis screen is negative. Does the patient have a suspected source of infection? No. Patient's initial sepsis screen is negative. Risk Assessment: Do you want to hurt yourself or someone else? Patient reports no desire to harm self or others. Onset of symptoms was October 31, 2021. 23:59 Method Of Arrival: Ambulatory christy 23:59 Acuity: CRISTHIAN 3 christy Triage Assessment: 10/31 00:02 General: Appears in no apparent distress. Behavior is calm, cooperative. Pain: christy Complains of pain in epigastric and left hand. Cardiovascular: Reports lightheadedness, near syncope. 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 - Social history:: Smoking status: Patient denies any tobacco usage or history of. Screenin:43 Abuse screen: Denies threats or abuse. Nutritional screening: No deficits noted. bp Tuberculosis screening: No symptoms or risk factors identified. Fall Risk None identified. Assessment: 01:46 Pain: Pain does not radiate. bp 02:52 Reassessment: resting quietlt. Medicated IV for chest pain. . bp 04:02 Pain: Pain began gradually. sv1 Vital Signs: 10/30 23:59 BP 139 / 88; Pulse 103; Resp 18; Temp 98.5; Pulse Ox 100% on R/A; Weight 85.28 kg; christy Height 5 ft. 4 in. (162.56 cm); Pain 10/10; 10/31 00:04 BP 139 / 88; Pulse 103; Resp 18; Temp 98.5; Pulse Ox 100% on R/A; Pain 10/10; christy 02:50 BP 131 / 91 LA Supine (auto/reg); Pulse 77 MON; Resp 17 S; Pulse Ox 100% on R/A; Pain bp 4/10; 03:46 BP 133 / 90 LA Supine (auto/reg); Pulse 74 MON; Resp 17 S; Pulse Ox 100% on R/A; sv1 10/30 23:59 Body Mass Index 32.27 (85.28 kg, 162.56 cm) christy ED Course: 10/30 23:54 Patient arrived in ED. kc5 10/31 00:02 Triage completed. christy 00:02 Man Hoffman DO is Attending Physician. ms3 00:05 Arm band placed on right wrist. christy 01:41 Stephen Parish, RN is Primary Nurse. bp 01:43 Patient has correct armband on for positive identification. Bed in low position. Call bp light in reach. Side rails up X2. Adult w/ patient. residential monitor on. 01:43 No provider procedures requiring assistance completed. bp 01:46 Patient maintains SpO2 saturation greater than 95% on room air. bp 02:04 XRAY Chest (1 view) In Process Unspecified. EDMS 02:12 Basic Metabolic Panel Sent. bp 02:12 CBC with Diff Sent. bp 02:12 D-Dimer Sent. bp 02:12 Troponin HS Sent. bp 02:51 Inserted saline lock: 20 gauge in right antecubital area, using aseptic technique. bp 03:31 Ez Lozano MD is Referral Physician. ms3 04:02 IV discontinued. sv1 Administered Medications: 02:40 Drug: morphine 4 mg Route: IVP; Site: right antecubital; bp 03:22 Follow up: Response: No adverse reaction; Pain is decreased sv1 Outcome: 03:32 Discharge ordered by . ms3 03:46 Discharged to home ambulatory, with family. sv1 03:46 Condition: good 03:46 Demonstrated understanding of follow-up care. 04:02 Patient left the ED. sv1 Signatures: Dispatcher [employer] Stephen Hernandez, RN RN Man Rivera DO DO ms3 Tonja Coats 5 Mamie Castillo RN Kit Dennison RN RN sv1
--- NOTE | 2021-10-31 03:32 | EDPHYS ---
Physician Documentation [facility] Name: Taisha Gavin Age: 36 yrs Sex: Female : 1985 Arrival Date: 10/30/2021 Time: 23:54 Bed 14 Private MD: ED Physician Man Hoffman HPI: 10/31 00:26 This 36 yrs old Black Female presents to ER via Ambulatory with complaints of Chest ms3 Pain, Arm Pain. 00:26 The patient or guardian reports chest pain that is located primarily in the substernal ms3 area. The pain radiates to the left arm. Associated signs and symptoms: Pertinent positives: nausea, Pertinent negatives: abdominal pain, shortness of breath, vomiting. The chest pain is described as a pressure, sharp. Duration: The patient or guardian reports multiple episodes. Modifying factors: The symptoms are alleviated by nothing. the symptoms are aggravated by nothing. Severity of pain: At its worst the pain was severe in the emergency department the pain is unchanged. The patient has experienced similar episodes in the past. 6-year-old female with past medical history of pseudotumor presents for chest pain that is rating down her left arm that began on Tuesday. Patient states her pain is a 10/10 and described as sharp pressure. Patient denies alleviating or inciting factors. Patient endorses nausea. Patient denies fevers, chills, shortness of breath.. 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 - Social history:: Smoking status: Patient denies any tobacco usage or history of. ROS: 00:26 Constitutional: Negative for fever, and chills. ENT: Negative for injury, pain, and ms3 discharge, Neck: Negative for injury, pain, and swelling, Abdomen/GI: Negative for abdominal pain, nausea, vomiting, diarrhea, and constipation, MS/Extremity: Negative for injury and deformity, Skin: Negative for injury, rash, and discoloration. 00:26 Cardiovascular: Positive for chest pain. 00:26 Neuro: Positive for headache. 00:26 All other systems are negative. Exam: 00:26 Constitutional: This is a well developed, well nourished patient who is awake, alert, ms3 and in no acute distress. Head/Face: Normocephalic, atraumatic. Neck: Trachea midline, no cervical lymphadenopathy. Supple, full range of motion without nuchal rigidity, or vertebral point tenderness. No Meningismus. Chest/axilla: Normal chest wall appearance and motion. Nontender with no deformity. Cardiovascular: Regular rate and rhythm with a normal S1 and S2. No gallops, murmurs, or rubs. Normal PMI, no JVD. No pulse deficits. Respiratory: Lungs have equal breath sounds bilaterally, clear to auscultation and percussion. No rales, rhonchi or wheezes noted. No increased work of breathing, no retractions or nasal flaring. Abdomen/GI: Soft, non-tender, with normal bowel sounds. No distension or tympany. No guarding or rebound. No evidence of tenderness throughout. Back: No spinal tenderness. No costovertebral tenderness. Full range of motion. Skin: Warm, dry with normal turgor. Normal color with no rashes, no lesions, and no evidence of cellulitis. MS/ Extremity: Pulses equal, no cyanosis. Neurovascular intact. Full, normal range of motion. Psych: Awake, alert, with orientation to person, place and time. Behavior, mood, and affect are within normal limits. 02:53 ECG was reviewed by the Attending Physician. ms3 Vital Signs: 10/30 23:59 BP 139 / 88; Pulse 103; Resp 18; Temp 98.5; Pulse Ox 100% on R/A; Weight 85.28 kg; christy Height 5 ft. 4 in. (162.56 cm); Pain 10/10; 10/31 00:04 BP 139 / 88; Pulse 103; Resp 18; Temp 98.5; Pulse Ox 100% on R/A; Pain 10/10; christy 02:50 BP 131 / 91 LA Supine (auto/reg); Pulse 77 MON; Resp 17 S; Pulse Ox 100% on R/A; Pain bp 4/10; 03:46 BP 133 / 90 LA Supine (auto/reg); Pulse 74 MON; Resp 17 S; Pulse Ox 100% on R/A; sv1 03/25 23:59 Body Mass Index 32.27 (85.28 kg, 162.56 cm) christy MDM: 00:26 Differential diagnosis: abnormal EKG, acute myocardial infarction, acute pericarditis, ms3 coronary artery disease chest wall pain, gastroesophageal reflux disease (GERD), pneumonia, pulmonary embolus, unstable angina. 01:08 Patient medically screened. ms3 03:35 HEART Score: History: Slightly Suspicious (0), ECG: Normal (0), Age: < or = 45 years ms3 (0), Risk Factors: 1 or 2 risk factors (1), Troponin: < or = 1 x Normal Limit (0), Total Score = 1. Data reviewed: vital signs, nurses notes, lab test result(s), EKG, radiologic studies, plain films. 03:37 Counseling: I had a detailed discussion with the patient and/or guardian regarding: the ms3 historical points, exam findings, and any diagnostic results supporting the discharge/admit diagnosis, lab results, radiology results, the need for outpatient follow up, a liaison inspection laboratory assistant, to return to the emergency department if symptoms worsen or persist or if there are any questions or concerns that arise at home. ED course: Discussed labs, chest x-ray, EKG, physical exam findings with patient. Patient to follow-up with Dr. Lozano as discussed. All questions were answered. Return precautions discussed include worsening symptoms, or any other concerns. On reevaluation patient is improved, alert and oriented x4, no apparent distress, nontoxic, ambulatory in emergency department. 10/31 00:26 Order name: Basic Metabolic Panel; Complete Time: 03:25 10/31 00:26 Order name: CBC with Diff; Complete Time: 03:05 10/31 00:26 Order name: D-Dimer; Complete Time: 03:05 10/31 00:26 Order name: Troponin HS; Complete Time: 03:25 10/31 00:26 Order name: XRAY Chest (1 view) 10/31 00:26 Order name: EKG; Complete Time: 01:34 10/31 00:26 Order name: Cardiac monitoring; Complete Time: 02:12 10/31 00:26 Order name: EKG - Nurse/Tech; Complete Time: 02:54 10/31 00:26 Order name: IV Saline Lock; Complete Time: 02:12 ms3 10/31 00:26 Order name: Labs collected and sent; Complete Time: 02:12 ms3 10/31 00:26 Order name: O2 Per Protocol; Complete Time: :12 ms3 10/31 00:26 Order name: O2 Sat Monitoring; Complete Time: 02:12 ms3 EC:53 Rate is 78 beats/min. Rhythm is regular. QRS [place] is Normal. AR interval is normal. ms3 Clinical impression: NSR w/ Non-specific ST/T Changes. Interpreted by me. Administered Medications: 02:40 Drug: morphine 4 mg Route: IVP; Site: right antecubital; bp 03:22 Follow up: Response: No adverse reaction; Pain is decreased sv1 Disposition Summary: 10/31/21 03:32 Discharge Ordered Location: Home ms3 Condition: Stable ms3 Diagnosis - Chest pain, unspecified ms3 - Anemia, unspecified ms3 Followup: ms3 - With: Ez Lozano MD - When: 2 - 3 days - Reason: Re-evaluation by your physician Discharge Instructions: - Discharge Summary Sheet ms3 - Anemia ms3 - Nonspecific Chest Pain, Adult ms3 Forms: - Medication Reconciliation Form ms3 - Thank You Letter ms3 - Antibiotic Education ms3 - Prescription Opioid Use ms3 Signatures: Dispatcher [employer] Stephen Hernandez, RN RN Man Rivera DO DO ms3 Mamie Castillo, RN Carol Tay PA PA sb3 Kit Brown RN sv1
[2021-10-31 04:35] VITALS: TEMP 98.5; O2SAT 100
[2021-10-31 04:40] VITALS: BP 133/90
--- NOTE | 2021-11-02 09:32 | RAD REPORT ---
EXAM DESCRIPTION: RAD - Chest Single View - 10/31/2021 2:03 am CLINICAL HISTORY: CHEST PAIN TECHNIQUE: Frontal view of the chest. COMPARISON: No relevant prior studies available. FINDINGS: Lungs: Minimal hazy bibasilar opacities. Pleural space: Unremarkable. No pneumothorax. Heart: Unremarkable. No cardiomegaly. Mediastinum: Unremarkable. Bones/joints: Unremarkable. IMPRESSION: Minimal hazy bibasilar opacities (atelectasis and/or infiltrate). Electronically signed by: Otoniel Nixon MD 10/31/2021 2:42 AM CDT Due to temporary technical issues with the PACS/Fluency reporting system, reports are being signed by the in house radiologist without review as a courtesy to ensure prompt reporting. The interpreting r adiologist is fully responsible for the content of the report.
== END 2021-10-31 04:02 | disposition home or self-care (01) ==
LOC: ER 23:51
DX: R07.9 Chest pain, unspecified (principal); D64.9 Anemia, unspecified; R51.9 Headache, unspecified; Z88.5 Allergy status to narcotic agent; Z88.8 Allergy status to other drugs, medicaments and biological substances
CPT/HCPCS: 36415; 71045; 80048; 84484; 85025; 85379; 96374; 99285

== ENCOUNTER 2021-12-13 20:17 | Emergency (ER) | payer SELFPAY ==
--- OUTSIDE RECORDS SUMMARY | 2021-12-13 20:19 | XMS REPORT | Continuity of Care Document ---
:1985 Author Organization [facility] t Address [address] [place] [address] [address] [place] [address] Care Team Providers Name Role Phone Pcp, Patient Does Not Have A Primary Care Physician +[id number] Nurse, Pob Immunization Attending Clinician Unavailable Khalif Coats DO Attending Clinician Problems This patient has no known problems. Allergies, Adverse Reactions, Alerts This patient has no known allergies or adverse reactions. Social History Social Habit Start Date Stop Date Quantity Comments Source Sex Assigned At [birth year] NPI:[id number] 00:00:00 00:00:00 Medications This patient has no known medications. 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 [id number] VACCINE,0.3ML,IM Name (PFIZER) Plan of Care Planned Activity Planned Date Details Comments Source Future Scheduled Test 2021-04-08 00:00:00 INFLUENZA VACCINE (Season Ended) [code = INFLUENZA VACCINE (Season Ended)] Future Scheduled Test 2021-01-02 00:00:00 SARS-CoV-2 (COVID-19) Vaccine (2 - Pfizer 2-dose series) [code = SARS-CoV-2 (COVID-19) Vaccine (2 - Pfizer 2-dose series)] Future Scheduled Test 2005 00:00:00 Screening for malignant neoplasm of cervix (procedure) [code = 351459429] Future Scheduled Test 2003 00:00:00 DTaP,Tdap,and Td Vaccines (1 - Tdap) [code = DTaP,Tdap,and Td Vaccines (1 - Tdap)] Future Scheduled Test 2002 00:00:00 Hepatitis C screening (procedure) [code = 197835022] Future Scheduled Test 1996 00:00:00 Depression screening (procedure) [code = 019619062] Future Scheduled Test 1985 00:00:00 VARICELLA VACCINES (1 of 2 - 2-dose childhood series) [code = VARICELLA VACCINES (1 of 2 - 2-dose childhood series)] Results This patient has no known results.
--- NOTE | 2021-12-13 21:58 | ER ---
Nurse's Notes [facility] Name: Taisha Gavin Age: 36 yrs Sex: Female : 1985 Arrival Date: 12/13/2021 Time: 20:36 Bed 8 Private MD: Diagnosis: Presentation: 12/13 20:36 Chief complaint: EMS states: they were toned out for report of pt with syncopal vs bb seizure at home. Coronavirus screen: At this time, the client does not indicate any symptoms associated with coronavirus-19. Ebola Screen: No symptoms or risks identified at this time. 20:36 Method Of Arrival: EMS: [facility] bb 20:45 Initial Sepsis Screen: Does the patient meet any 2 criteria? No. Patient's initial bb sepsis screen is negative. Does the patient have a suspected source of infection? No. Patient's initial sepsis screen is negative. Risk Assessment: Do you want to hurt yourself or someone else? Patient reports no desire to harm self or others. Onset of symptoms was December 13, 2021. 20:45 Acuity: CRISTHIAN 3 bb 21:20 Chief complaint: EMS states: toned out for seizure, unwitnessed by EMS, pt post ictal. as6 Coronavirus screen: At this time, the client does not indicate any symptoms associated with coronavirus-19. Ebola Screen: No symptoms or risks identified at this time. Initial Sepsis Screen: Does the patient meet any 2 criteria? No. Patient's initial sepsis screen is negative. Does the patient have a suspected source of infection? No. Patient's initial sepsis screen is negative. Risk Assessment: Do you want to hurt yourself or someone else? Patient reports no desire to harm self or others. Onset of symptoms was December 13, 2021. 21:20 Method Of Arrival: EMS: [facility] as6 21:20 Acuity: CRISTHIAN 3 as6 Historical: - Allergies: 21:23 Codeine; as6 21:23 Lasix; as6 21:23 Codeine; bb 21:23 Lasix; bb - PMHx: 21:23 hydrocephalus; bb - PSHx: 21:23 Appendectomy; section; Cholecystectomy; Tubal reversal; as6 21:23 Appendectomy; section; Cholecystectomy; Tubal reversal; bb - Immunization history:: Adult Immunizations unknown, . - Social history:: Smoking status: Patient reports the use of cigarette tobacco products, smokes one-half pack cigarettes per day. Assessment: 20:45 General: Appears in no apparent distress. Behavior is calm, cooperative. Pain: as6 Complains of pain in headache. Neuro: Level of Consciousness is awake, alert, obeys commands, Oriented to person, place, time, Reports headache. Cardiovascular: JVD is absent Patient's skin is warm and dry. Respiratory: Respiratory effort is even, unlabored, Respiratory pattern is regular, symmetrical. 21:57 General: pt eloped . as6 Vital Signs: 20:45 BP 130 / 90; Pulse 124; Resp 16 S; Pulse Ox 94% on R/A; Weight 81.65 kg (R); Height 5 bb ft. 7 in. (170.18 cm) (R); 21:20 BP 120 / 87; Pulse 78; Resp 18; Temp 97.6(O); Pulse Ox 98% ; Weight 78.93 kg; Height 5 as6 ft. 3 in. (160.02 cm); Pain 4/10; 21:20 Body Mass Index 30.82 (78.93 kg, 160.02 cm) as6 ED Course: 20:36 Patient arrived in ED. mw2 20:37 Berto Stock MD is Attending Physician. [facility] 20:47 Israel Elizalde, BALWINDER is Primary Nurse. as6 21:23 Triage completed. 21:24 Arm band placed on. as6 Administered Medications: 21:56 Not Given (Patient Eloped): Reglan (metoCLOPramide) 10 mg IVP once; over 1 to 2 minutes as6 21:56 Not Given (Patient Eloped): Benadryl (diphenhydrAMINE) 50 mg IVP once as6 21:57 Not Given (Patient Eloped): NS 0.9% 1000 ml IV at 1000 ml once as6 Outcome: 21:58 Patient left the ED. as6 Signatures: Mamie Patel, RN RN Mina Galvez mw2 Berto Stock MD MD [facility] Israel Elizalde RN RN as6
--- NOTE | 2021-12-13 21:59 | EDPHYS ---
Physician Documentation [facility] Name: Taisha Gavin Age: 36 yrs Sex: Female : 1985 Arrival Date: 12/13/2021 Time: 20:36 Bed 8 Private MD: ED Physician Berto Stock HPI: 12/13 20:50 This 36 yrs old Black Female presents to ER via Unassigned with complaints of Headache. mh7 20:50 The patient complains of pain to the forehead. The patient describes the headache as mh7 intermittent, throbbing. Onset: The symptoms/episode began/occurred today, 2 hour(s) ago. Associated signs and symptoms: Pertinent positives: nausea, Photophobia Pertinent negatives: altered mental status, dizziness, fever, malaise, neck stiffness, paresthesias, rash, sinus congestion, sinus tenderness, vision changes, vision loss, vomiting, weakness, vertigo. Severity of symptoms: At its worst the pain was moderate, in the emergency department the pain is unchanged. Headache History: The patient has had previous headaches and this one is similar to previous episodes. The symptoms are alleviated by nothing. Did not take any medication for pain the symptoms are aggravated by lights, noise. The patient has experienced similar episodes in the past, multiple times. Historical: - Allergies: 21:23 Codeine; as6 21:23 Lasix; as6 21:23 Codeine; bb 21:23 Lasix; bb - PMHx: 21:23 hydrocephalus; bb - PSHx: 21:23 Appendectomy; section; Cholecystectomy; Tubal reversal; as6 21:23 Appendectomy; section; Cholecystectomy; Tubal reversal; bb - Immunization history:: Adult Immunizations unknown, . - Social history:: Smoking status: Patient reports the use of cigarette tobacco products, smokes one-half pack cigarettes per day. ROS: 20:50 Constitutional: Negative for fever, chills, and weight loss, Eyes: Negative for injury, mh7 pain, redness, and discharge, ENT: Negative for injury, pain, and discharge, Neck: Negative for injury, pain, and swelling, Cardiovascular: Negative for chest pain, palpitations, and edema, Respiratory: Negative for shortness of breath, cough, wheezing, and pleuritic chest pain, Abdomen/GI: Negative for abdominal pain, nausea, vomiting, diarrhea, and constipation, Back: Negative for injury and pain, : Negative for injury, bleeding, discharge, and swelling, MS/Extremity: Negative for injury and deformity, Skin: Negative for injury, rash, and discoloration, Psych: Negative for depression, anxiety, suicide ideation, homicidal ideation, and hallucinations, Allergy/Immunology: Negative for hives, rash, and allergies, Endocrine: Negative for neck swelling, polydipsia, polyuria, polyphagia, and marked weight changes, Hematologic/Lymphatic: Negative for swollen nodes, abnormal bleeding, and unusual bruising. Exam: 20:50 Constitutional: This is a well developed, well nourished patient who is awake, alert, mh7 and in no acute distress. Head/Face: Normocephalic, atraumatic. Eyes: Pupils equal round and reactive to light, extra-ocular motions intact. Lids and lashes normal. Conjunctiva and sclera are non-icteric and not injected. Cornea within normal limits. Periorbital areas with no swelling, redness, or edema. Neck: Trachea midline, no thyromegaly or masses palpated, and no cervical lymphadenopathy. Supple, full range of motion without nuchal rigidity, or vertebral point tenderness. No Meningismus. Chest/axilla: Normal chest wall appearance and motion. Nontender with no deformity. No lesions are appreciated. Cardiovascular: Regular rate and rhythm with a normal S1 and S2. No gallops, murmurs, or rubs. Normal PMI, no JVD. No pulse deficits. Respiratory: Lungs have equal breath sounds bilaterally, clear to auscultation and percussion. No rales, rhonchi or wheezes noted. No increased work of breathing, no retractions or nasal flaring. Abdomen/GI: Soft, non-tender, with normal bowel sounds. No distension or tympany. No guarding or rebound. No evidence of tenderness throughout. Back: No spinal tenderness. No costovertebral tenderness. Full range of motion. Skin: Warm, dry with normal turgor. Normal color with no rashes, no lesions, and no evidence of cellulitis. MS/ Extremity: Pulses equal, no cyanosis. Neurovascular intact. Full, normal range of motion. Neuro: Awake and alert, GCS 15, oriented to person, place, time, and situation. Cranial nerves II-XII grossly intact. Motor strength 5/5 in all extremities. Sensory grossly intact. Cerebellar exam normal. Normal gait. Psych: Awake, alert, with orientation to person, place and time. Behavior, mood, and affect are within normal limits. 20:50 Constitutional: The patient appears Vital Signs: 20:45 BP 130 / 90; Pulse 124; Resp 16 S; Pulse Ox 94% on R/A; Weight 81.65 kg (R); Height 5 bb ft. 7 in. (170.18 cm) (R); 21:20 BP 120 / 87; Pulse 78; Resp 18; Temp 97.6(O); Pulse Ox 98% ; Weight 78.93 kg; Height 5 as6 ft. 3 in. (160.02 cm); Pain 4/10; 21:20 Body Mass Index 30.82 (78.93 kg, 160.02 cm) as6 MDM: 22:05 ED course: Informed by nursing staff that patient eloped from the ED.. [facility] 12/14 07:24 Patient medically screened. [facility] Administered Medications: 12/13 21:56 Not Given (Patient Eloped): Reglan (metoCLOPramide) 10 mg IVP once; over 1 to 2 minutes as6 21:56 Not Given (Patient Eloped): Benadryl (diphenhydrAMINE) 50 mg IVP once as6 21:57 Not Given (Patient Eloped): NS 0.9% 1000 ml IV at 1000 ml once as6 Disposition Summary: 12/13/21 21:58 Eloped Disposition: after being seen by provider as6 Reason: unknown as6 Signatures: Dispatcher [employer] Mamie Whitney RN RN bb Berto Stock MD MD 7 Israel Elizalde RN RN as6
[2021-12-13 22:52] VITALS: BP 120/87; TEMP 97.6; O2SAT 98
== END 2021-12-13 21:58 | disposition left against medical advice (07) ==
LOC: ER 20:17
DX: R51.9 Headache, unspecified (principal); F17.210 Nicotine dependence, cigarettes, uncomplicated; Z88.5 Allergy status to narcotic agent; Z88.8 Allergy status to other drugs, medicaments and biological substances
CPT/HCPCS: 99282

== ENCOUNTER 2022-09-11 14:17 | Emergency (ER) | payer SELFPAY ==
--- OUTSIDE RECORDS SUMMARY | 2022-09-11 14:38 | XMS REPORT | Continuity of Care Document ---
:1985 Author Organization [facility] t Address [address] [place] [address] Care Team Providers Name Role Phone Steff Arya Singh Primary Care Physician Lupe Ruvalcaba Attending Clinician Lupe BRENNER Attending Clinician Unavailable DEO LOPES Attending Clinician Unavailable Deo Lopes MD Attending Clinician Nurse, Adc Pob Immunization Attending Clinician Unavailable Bakari Coats DO Attending Clinician Luep BRENNER Admitting Clinician Unavailable Problems Condition Condition Condition Status Onset Resolution Last Treating Co mments Source Name Details Category Date Date Treatment Clinician Date No known No known Disease Unive rs active active ity of problems problems [place] [facility] [place] Allergies, Adverse Reactions, Alerts Allergy Allergy Status Severity Reaction(s) Onset Inactive Treating Comm ents Source Name Type Date Date Clinician Codeine Propensi Active Itching 2021-08 Univer s ty to 0-14 ity of adverse 00:00: [place] reaction Medical s Branch Furosemi Propensi Active Itching 2021-08 Unive rs de ty to 0-14 ity of adverse 00:00: [place] reaction 00 Medical s Branch CODEINE DRUG Active ITCHING 2021-08 Univers INGREDI 0-14 ity of 00:00: [place] [facility] FUROSEMI DRUG Active ITCHING 2021-08 Univers DE INGREDI 0-14 ity of 00:00: [place] 00 Medical Branch Codeine Propensi Active Rash Univers ty to 3-27 ity of adverse 00:00: [place] reaction 00 Medical s Branch Furosemi Propensi Active Hives Univer s de ty to 3-27 ity of adverse 00:00: [place] reaction 00 Medical s Branch CODEINE DRUG Active Rash Univers INGREDI 3-27 ity of 00:00: [place] [facility] FUROSEMI DRUG Active Hives Univers DE INGREDI 3-27 ity of 00:00: [place] 00 Medical Branch Social History Social Habit Start Date Stop Date Quantity Comments Source Exposure to 2022-06-05 2022-06-15 Not sure [facility] SARS-CoV-2 (event) 00:00:00 14:33:00 Medica l Branch [facility] [birth year] [facility] [place] [facility] Medical Branch Smoking Status Start Date Stop Date Source Tobacco smoking consumption [facility] Medical unknown Branch Medications Ordered Filled Start Stop Current Ordering Indication Dosage Frequency Signature Comments Components Source Medication Medication Date Date Medication? Clinician (SIG) Name Name cefdinir 2021-08 No 300mg 300 mg, Univ ers (OMNICEF) 08-16 Oral, ity of capsule 300 00:30: 00:31 [place]CE[place] 1 [place] 00 :[place] dose, On Medical Tue Branch 06/15/22 at 1830, CAROLE
Re ason for Anti-Infec tive: Documented Infection< br>Documen roxanne Infection Site: HEENT
D uration of Therapy: 7 days NaCl 0.9% 2021-08 No 1000mL at 999 Uni vers (NS) bolus 08-16 mL/hr, ity of infusion 00:15: 00:34 1,000 mL, Juan as 1,000 mL 00 :00 IV Medical Infusion, Branch ONCE, 1 dose, On 06/15/22 at 1815, STAT levETIRAcet 2021-08- No 1000mg 1,000 mg, Univers am (KEPPRA) 08-15 IV ity of in NACL 22:00: 22:25 Piggyback, Juan as (ISO-OS) 00 :55 ONCE, 1 Medical 1,000 dose, On Branch mg/100 mL Tue RTU 06/15/22 at 1600, Administer over 15 Minutes, 100 mL acetaminoph 2021-08- No 1000mg 1,000 mg, Univers en 08-15 Oral, ity of (TYLENOL) 21:30: 21:22 ONCE, 1 [place] tablet 00 :00 dose, On Medical 1,000 mg Tue Branch 06/15/22 at 1530, CAROLE levETIRAcet 2021-08- Yes [id number] 750mg Take 1 Univers am (KEPPRA) 08-15 tablet by it y of 750 mg 00:00: 05:59 mouth in [place] tablet 00 :00 the Medical morning Branch and 1 tablet in the evening. Do all this for 14 days. cefdinir 2021-08- Yes [id number] 300mg Take 1 U nivers 300 mg 08-15 capsule by ity of capsule 00:00: 05:59 mouth [place] 00 :00 every 12 Medical (twelve) Branch hours for 7 days. metoclopram 2021-08- No 10mg 10 mg, Uni vers antoni HCl 0-14 10-14 Slow IV ity of (REGLAN) 17:30: 17:19 Push, [place] injection 00 :00 ONCE, 1 Medical 10 mg dose, On Branch 05/21/22 at 1230, [facility] proMETHazin 2011- Yes 25mg Take 1 Tab Univers e 3-27 by mouth ity of (PHENERGAN) 00:00: every 6 Juan as 25 mg 00 (six) Medical tablet hours as Branch needed for Nausea and Vomiting (headache) . Immunizations Ordered Filled Immunization Date Status Comments [facility] e Immunization Name Name SARS-COV-2 COVID-19 2021-01-09 Completed Unive rsity of PFIZER VACCINE 00:00:00 [facility] [place] Branch SARS-COV-2 COVID-19 2021-01-09 Completed Unive rsity of PFIZER VACCINE 00:00:00 [facility] SARS-COV-2 COVID-19 2020-12-12 Completed Unive rsity of PFIZER VACCINE 00:00:00 [facility] SARS-COV-2 COVID-19 2020-12-12 Completed Unive rsity of PFIZER VACCINE 00:00:00 [facility] SARS-COV-2 COVID-19 2020-12-12 Completed Unive rsity of PFIZER VACCINE 00:00:00 [facility] Vital Signs Vital Name Observation Time Observation Value Comments Source Systolic blood 2022-06-15 23:38:00 128 mm[Hg] Univer sity of pressure [facility] Diastolic blood 2022-06-15 23:38:00 86 mm[Hg] Unive rsity of pressure [facility] Heart rate 2022-06-15 23:38:00 63 /min Universi ty of [facility] Respiratory rate 2022-06-15 23:38:00 15 /min Univ ersity of [facility] Oxygen saturation in 2022-06-15 23:38:00 100 /min University of Arterial blood by [facility] [place] Pulse oximetry Branch Body temperature 2022-06-15 20:33:00 37.33 [place] Univ ersity of [facility] Branch Body height 2022-06-15 20:33:00 160 cm Universi ty of [facility] Body weight 2022-06-15 20:33:00 71.668 kg [facility] ty of [facility] BMI 2022-06-15 20:33:00 27.99 kg/m2 Univers ty of [facility] Systolic blood 2022-05-21 17:30:00 117 mm[Hg] Univer sity of pressure [facility] Branch Diastolic blood 2022-05-21 17:30:00 71 mm[Hg] Unive rsity of pressure [facility] Heart rate 2022-05-21 17:30:00 63 /min Universi ty of [facility] Branch Respiratory rate 2022-05-21 17:30:00 10 /min Univ ersity of [facility] Branch Oxygen saturation in 2022-05-21 17:30:00 100 /min University of Arterial blood by [facility] [place] Pulse oximetry Branch Body temperature 2022-05-21 16:55:50 36.11 [place] Univ ersity of [facility] Branch Body height 2022-05-21 16:50:00 160 cm [facility] Body weight 2022-05-21 16:50:00 72.576 kg [facility] BMI 2022-05-21 16:50:00 28.34 kg/m2 [facility] Procedures Procedure Date / Time Performing Clinician Source Performed POCT TEST 2022-06-15 23:18:00 Lupe Brenner [facility] URINE DRUG (IMMUNOASSAY) 2022-06-15 23:17:00 Lupe Brenner [facility] SCREEN URINALYSIS 2022-06-15 23:15:00 Lupe Brenner [facility] CT CERVICAL SPINE WO 2022-06-15 21:46:53 Lupe Brenner [facility] CONTRAST [facility] CT HEAD WO CONTRAST 2022-06-15 21:46:53 Lupe Brenner [facility] COMP. METABOLIC PANEL 2022-06-15 21:04:00 Lupe Brenner [facility] ([id number]) [facility] CBC WITH DIFF 2022-06-15 21:04:00 Lupe Brenner [facility] NOTICE OF PRIVACY 2022-05-21 17:32:32 Doctor Unassigned, No [facility] CONSENT/REFUSAL FOR 2022-05-21 17:31:00 Doctor Unassigned, No Un [facility] [place] DIAGNOSIS AND TREATMENT [facility] MAGNESIUM 2022-05-21 16:53:00 Deo Lopes [facility] TEST, SERUM 2022-05-21 16:53:00 Deo Lopes [facility] COMP. METABOLIC PANEL 2022-05-21 16:53:00 Deo Lopes [facility] ([id number]) [facility] CBC WITH DIFF 2022-05-21 16:53:00 Deo Lopes [facility] SARS-COV-2 COVID-19 2020-12-12 14:31:35 [facility]IM Name [facility] (PFIZER) Plan of Care Planned Activity Planned Date Details Comments Source Future Scheduled 2021-04-08 [facility] (Season Ended) [code Medical Branch = INFLUENZA VACCINE (Season Ended)] Future Scheduled 2021-01-02 SARS-CoV-2 [facility] Test 00:00:00 (COVID-19) Vaccine Medical B ranch (2 - Pfizer 2-dose series) [code = SARS-CoV-2 (COVID-19) Vaccine (2 - Pfizer 2-dose series)] Future Scheduled 2005 Screening for [facility] Test 00:00:00 malignant neoplasm Medical B ranch of cervix (procedure) [code = 037477333] Future Scheduled 2003 DTaP,Tdap,and Td Univers [facility] Test 00:00:00 Vaccines (1 - Tdap) Medical Branch [code = DTaP,Tdap,and Td Vaccines (1 - Tdap)] Future Scheduled 2002 Hepatitis C [facility] Test 00:00:00 screening Medical Branch (procedure) [code = 466164377] Future Scheduled 1996 Depression screening Uni [facility] Test 00:00:00 (procedure) [code = Medical Branch 408652165] Future Scheduled 1985 [facility] Test 00:00:00 (1 of 2 - 2-dose Medical Bra [facility] childhood series) [code = VARICELLA VACCINES (1 of 2 - 2-dose childhood series)] Encounters Start End Encounter Admission Attending Care Care Encounter Source Date/Time Date/Time Type Type Clinicians Facility Department ID 2022-06-15 2022-06-15 Emergency Lupe Brenner [facility] [id number] Univers 14:32:00 18:36:00 Unique SINDI [id number] [facility] [id number] [facility] [id number] [facility] 084 Branch 2022-06-15 2022-06-15 Emergency X Lupe BRENNER [facility] ERT [id number] Univers 14:32:00 18:36:00 ity [facility] 2022-05-21 2022-05-21 Emergency X MARIANNE [facility] ERT [id number] Univers 11:48:00 13:06:00 DEO [facility] 2022-05-21 2022-05-21 Emergency [facility] [id number] Univers 11:48:00 13:06:00 Deo DELONG [id number] i ty melisa TRUJILLO [id number] [facility] [id number] [facility] 084 Branch 2022-05-21 2022-05-21 Emergency [facility] [id number] Univers 11:48:00 13:06:00 DEO [facility] Results Test Description Test Time Test Comments Results Result Comments Source POCT TEST 2022-06-15 23:18:00 Test Item Value Reference Range Interpretation Comme nts POCT PREG (test code = 1605) negative On board controls acceptable with C Line (test code = 3574) present POCT PREG LOT # (test code = 3575) [id number] POCT PREG TEST DATE (test code = 3576) 11/06/2023 Lab Interpretation (test code = 20996-0) [id number]2022-[facility]-15 21:31:27 Test Item Value Reference Range Interpretation Comments NA (test code = 139 mmol/L 135-145 5449592445) K (test code = 3.7 mmol/L 3.5-5.0 9600131720) CL (test code = 107 mmol/L 98-108 2893572704) CO2 TOTAL (test code = 25 mmol/L 23-31 3444325782) AGAP (test code = 2-16 6200429178) BUN (test code = 6 mg/dL 7-23 L 9832524657) GLUCOSE (test code = 89 mg/dL 70-110 9486171839) CREATININE (test code = 0.71 mg/dL 0.50-1.04 0558412744) TOTAL BILI (test code = 0.4 mg/dL 0.1-1.6 1659916446) CALCIUM (test code = 8.9 mg/dL 8.6-10.6 9989795535) T PROTEIN (test code = 7.3 g/dL 6.3-8.2 0269506102) ALBUMIN (test code = 4.4 g/dL 3.5-5.0 5737317865) ALK PHOS (test code = 67 U/L 34-122 8311953248) ALTv (test code = 52 U/L 5-35 H 1742-6) AST(SGOT) (test code = 32 U/L 13-40 8599930986) eGFR (test code = mL/min/1.73m2 2707497510) MARKEL (test code = MARKEL) Association of Glomerular Filtration Rate (GFR) and Staging of Kidney Disease* + --+ --+ ------+| GFR (mL/min/1.73 m2) ?| With Kidney Damage ?| ?Without Kidney Damage+ --------+ --------+ +| ?>90 ?| ?Stage one ?| ? Normal ?+ ---+ ---+ -------+| ?60-89 ?| ?Stage two ?| ? Decreased GFR ? + --+ --+ ------+| ?30-59 ?| ?Stage three ?| ? Stage three ? + --+ --+ ------+| ?15-29 ?| ?Stage four ? | ? Stage four ?+ ---+ ---+ -------+| ?<15 (or dialysis) ? ?| ?Stage five ? | ? Stage five ?+ ---+ ---+ -------+ *Each stage assumes the associated GFR level has been in effect for at least three months. ?Stages 1 to 5, with or without kidney disease, indicate chronic kidney disease. Notes: Determination of stages one and two (with eGFR >59mL/min/1.73 m2) requires estimation of kidney damage for at least three months as defined by structural or functional abnormalities of the kidney, manifested by either:Pathological abnormalities or Markers of kidney damage (including abnormalities in the composition of the blood or urine or abnormalities in imaging tests). Lab Interpretation Abnormal (test code = 67809-0) [facility] WITH [id number] 21:16:48 Test Item Value Reference Range Interpretation Comments WBC (test code = See_Comment [Automated 6690-2) message] The sy stem which generated this result transmitted reference range : 4.30 - 11.10 10*3/?L. The reference range was not used to interpret this result as normal/abnormal . RBC (test code = See_Comment [Automated 789-8) message] The sy stem which generated this result transmitted reference range : 3.93 - 5.25 10*6/?L. The reference range was not used to interpret this result as normal/abnormal . HGB (test code = 12.0 g/dL 11.6-15.0 718-7) HCT (test code = 34.9 % 35.7-45.2 L 4544-3) MCV (test code = 85.7 fL 80.6-95.5 787-2) MCH (test code = 29.5 pg 25.9-32.8 785-6) MCHC (test code = 34.4 g/dL 31.6-35.1 786-4) RDW-SD (test code = 47.8 fL 39.0-49.9 63262-8) RDW-CV (test code = 15.2 % 12.0-15.5 788-0) PLT (test code = See_Comment [Automated 777-3) message] The sy stem which generated this result transmitted reference range : 166 - 358 10*3/ ?L. The reference r abiola was not used to interpret this result as normal/abnormal . MPV (test code = 11.0 fL 9.5-12.9 03245-2) NRBC/100 WBC (test See_Comment [Automat ed code = 0961102729) message] The system which generated this result transmitted reference range : 0.0 - 10.0 /100 WBCs. The refer ence range was not u sed to interpret th is result as normal/abnormal . NRBC x10^3 (test code See_Comment [Auto mated = 4332597932) message] The s ystem which generated this result transmitted reference range : 10*3/?L. The reference range was not used to interpret this result as normal/abnormal . GRAN MAT (NEUT) % 50.4 % (test code = 770-8) IMM GRAN % (test code 0.20 % = 0563635775) LYMPH % (test code = 40.0 % 736-9) MONO % (test code = 6.8 % 5905-5) EOS % (test code = 2.3 % 713-8) BASO % (test code = 0.3 % 706-2) GRAN MAT x10^3(ANC) 3.26 10*3/uL 1.88-7.09 (test code = 0754298708) IMM GRAN x10^3 (test 0.00-0.06 code = 1943452521) LYMPH x10^3 (test code 2.59 10*3/uL 1.32-3.29 = 731-0) MONO x10^3 (test code 0.44 10*3/uL 0.33-0.92 = 742-7) EOS x10^3 (test code = 0.15 10*3/uL 0.03-0.39 711-2) BASO x10^3 (test code 0.01-0.07 = 704-7) Lab Interpretation Abnormal (test code = 79798-6) [facility]"
[2022-09-11 14:55] LABS: Hematocrit 36.4 % (36.0-45.0); RBC Red Blood Cell Count 4.06 M/uL (3.86-4.86)
[2022-09-11 14:56] LABS: Absolute Lymphocytes (CBC) 1.5 K/uL (0.7-4.9); Lymphocytes % 17.5 % (15.3-44.8); MCV 89.5 fL (80-100); MPV 8.1 fL (7.6-11.3)
[2022-09-11] MEDS ORDERED: levETIRAcetam 1,000 MG in NA CHLORIDE 0.9% 100 ML IV ONE (15:00)
--- NOTE | 2022-09-11 15:13 | RAD REPORT ---
EXAM DESCRIPTION: CT - Head Brain Wo Cont - 09/11/2022 3:03 pm CLINICAL HISTORY: Seizure COMPARISON: 2021 TECHNIQUE: Computed axial tomography of the head was obtained. IV contrast was not requested. All CT scans are performed using dose optimization technique as appropriate and may include automated exposure control or mA/KV adjustment according to patient size. FINDINGS: An intracranial bleed is not seen Empty sella turcica. The ventricles are normal in caliber No extra-axial fluid collection is noted. No significant hypodensity within the brain is seen Fluid within the sinuses/ mastoids is not seen. IMPRESSION: No acute intracranial abnormality is seen If patient's symptoms persist MRI of the brain would be recommended
[2022-09-11 15:19] LABS: Protime INR 1.2
[2022-09-11] MEDS ORDERED: ONDANSETRON 4 MG/2 ML VIAL ONE (15:19)
[2022-09-11 15:24] LABS: ALT/SGPT 26 U/L (13-56); AST/SGOT 14 U/L (15-37); Albumin 3.7 g/dL (3.4-5.0); Alkaline Phosphatase 64 U/L (45-117); BUN Blood Urea Nitrogen 8 mg/dL (7-18); Bicarbonate 23 mmol/L (21-32); Bilirubin Direct 0.1 mg/dL (0-0.2); Bilirubin Total 0.3 mg/dL (0.2-1.0); Glomerular Filtration Rate 89 ml/min (=/>90); Glucose Level 96 mg/dL (74-106); Potassium 3.9 mmol/L (3.5-5.1); Protein, Total 7.7 g/dL (6.4-8.2); Sodium Level 138 mmol/L (136-145)
[2022-09-11] MEDS ORDERED: ACETAMINOPHEN 500 MG TAB ONE (15:49)
[2022-09-11] MEDS ORDERED: METOCLOPRAMIDE 10 MG/2mL INJ ONE (15:59)
[2022-09-11] MEDS ORDERED: NA CHLORIDE 0.9% 500 ML ONE (15:59)
[2022-09-11 16:31] LABS: Urine Blood Trace-lysed (Negative); Urine Glucose Negative (Negative); Urine Protein 1+ (Negative)
[2022-09-11 17:01] LABS: Barbiturates POSITIVE (NEGATIVE); Benzodiazepines NEGATIVE (NEGATIVE); Cocaine NEGATIVE (NEGATIVE); METHAMPHETAM NEGATIVE (NEGATIVE); Methadone NEGATIVE (NEGATIVE); Opiates NEGATIVE (NEGATIVE); Phencyclidine NEGATIVE (NEGATIVE); THC Cannibis NEGATIVE (NEGATIVE)
--- NOTE | 2022-09-11 17:49 | ER ---
Nurse's Notes [facility] Name: Taisha Gavin Age: 37 yrs Sex: Female : 1985 Arrival Date: 09/11/2022 Time: 14:28 Bed 6 Private MD: Diagnosis: Other seizures Presentation: 09/11 14:28 Chief complaint: EMS states: UNWITNESSED SZ AT WORK. Coronavirus screen: At this time, bp the client does not indicate any symptoms associated with coronavirus-19. Ebola Screen: No symptoms or risks identified at this time. Initial Sepsis Screen: Does the patient meet any 2 criteria? No. Patient's initial sepsis screen is negative. Does the patient have a suspected source of infection? No. Patient's initial sepsis screen is negative. Risk Assessment: Do you want to hurt yourself or someone else? Patient reports no desire to harm self or others. Onset of symptoms was September 11, 2022 at 14:00. 14:28 Method Of Arrival: EMS: [facility] bp 14:28 Acuity: CRISTHIAN 3 bp ANALYTICS ANALYST: 18:01 LMP N/A - control method, upt negative iw Historical: - Allergies: 14:31 Codeine; bp 14:31 Lasix; bp - Home Meds: 14:31 Keppra Oral [Active]; bp - PMHx: 14:31 Hydrocephalus; bp - PSHx: 14:31 Appendectomy; section; Cholecystectomy; Tubal reversal; bp - Immunization history:: Adult Immunizations up to date. - Social history:: Smoking status: unknown. Screenin:49 [facility] ED Fall Risk Assessment (Adult) History of falling in the last 3 months, ll1 including since admission Yes- physiologic fall (2 pts) Confusion or Disorientation Yes (5 pts) Mobility Assist Device Used Yes (1 pt) Score/Fall Risk Level 3 or more points = High Risk Oriented to surroundings, Maintained a safe environment, Educated pt \T\ family on fall prevention, incl call for assistance when getting out of bed, Hourly rounding (assess needs \T\ fall precautionary measures) done, Used ambulatory aids as needed (educated on \T\ assisted with). Abuse screen: Denies threats or abuse. Nutritional screening: No deficits noted. Tuberculosis screening: No symptoms or risk factors identified. Assessment: 14:38 General: Appears uncomfortable, Behavior is calm, cooperative, appropriate for age. ll1 Pain: Complains of pain in scalp Quality of pain is described as aching, Aggravated by touch. Neuro: Reports headache seizure precautions. 15:20 Reassessment: No changes from previously documented assessment. zofran given for nausea.ll1 15:51 Reassessment: No changes from previously documented assessment. Patient and/or family ll1 updated on plan of care and expected duration. Pain level reassessed. Patient is alert, oriented x 3, equal unlabored respirations, skin warm/dry/pink. 16:35 Reassessment: No changes from previously documented assessment. UA collected. ll1 17:34 Reassessment: No changes from previously documented assessment. Patient and/or family ll1 updated on plan of care and expected duration. Pain level reassessed. Patient is alert, oriented x 3, equal unlabored respirations, skin warm/dry/pink. 18:00 Reassessment: No changes from previously documented assessment. Patient and/or family iw updated on plan of care and expected duration. Pain level reassessed. Vital Signs: 14:28 BP 126 / 83; Pulse 79; Resp 16; Temp 98.4; Pulse Ox 99% ; bp 14:32 BP 138 / 104; Pulse 101; Resp 17; Temp 98.6; Pulse Ox 97% ; ll1 15:50 BP 144 / 97; Pulse 90; Resp 16; Pulse Ox 100% on R/A; Pain 10/10; ll1 17:03 BP 135 / 86; Pulse 71; Resp 16; Pulse Ox 98% on R/A; ll1 17:33 BP 129 / 81; Pulse 68; Resp 16; Pulse Ox 97% ; ll1 ED Course: 14:28 Patient arrived in ED. eb 14:28 Stephen Parish, RN is Primary Nurse. bp 14:30 Triage completed. bp 14:31 Mumtaz Goodson PA is PHCP. jmm 14:31 Dion Chong MD is Attending Physician. jmm 14:31 Arm band placed on. bp 14:43 Inserted saline lock: 22 gauge in right antecubital area, using aseptic technique. ll1 Blood collected. 14:48 Primary Nurse role handed off by Stephen Parish, BALWINDER ll1 14:48 Robby, Lynsay, RN is Primary Nurse. ll1 14:48 Patient maintains SpO2 saturation greater than 95% on room air. ll1 14:51 Patient has correct armband on for positive identification. Bed in low position. Call ll1 light in reach. Side rails up X2. Client placed on continuous cardiac and pulse oximetry monitoring. NIBP monitoring applied. manager monitoring on. 15:05 CT Head Brain wo Cont In Process Unspecified. EDMS 15:11 EKG done, by ED staff, reviewed by Mumtaz HUITRON. 1 17:48 Abrahan Ruano MD is Referral Physician. [facility] 18:00 No provider procedures requiring assistance completed. IV discontinued, intact, iw bleeding controlled, No redness/swelling at site. Pressure dressing applied. Administered Medications: 15:19 Drug: Zofran (Ondansetron) 4 mg Route: IVP; Site: right antecubital; ll1 15:52 Follow up: Response: No adverse reaction; Nausea is decreased; RASS: Alert and Calm (0) 1 15:34 Drug: Keppra (levETIRAcetam) 1000 mg Route: IV; Rate: calculated rate; Site: right ll1 antecubital; 15:52 Follow up: Response: No adverse reaction; IV Status: Completed infusion; IV Intake: ll1 100ml 15:50 Drug: Acetaminophen 1000 mg {Note: BILLS pain 05/17.} Route: PO; ll1 18:01 Follow up: Response: No adverse reaction iw 16:02 Drug: NS 0.9% 500 ml Route: IV; Rate: bolus; Site: right antecubital; ll1 18:02 Follow up: Response: No adverse reaction; IV Status: Completed infusion; IV Intake: iw 500ml 16:02 Drug: Reglan (metoCLOPramide) 10 mg Route: IVP; Site: right antecubital; ll1 18:01 Follow up: Response: No adverse reaction iw Medication: 18:01 VIS not applicable for this client. iw Intake: 15:52 IV: 100ml; Total: 100ml. ll1 18:02 IV: 500ml; Total: 600ml. iw Outcome: 17:48 Discharge ordered by . [facility] 18:01 Discharged to home via wheelchair. iw 18:01 Condition: stable 18:01 Discharge instructions given to patient, family, Instructed on discharge instructions, follow up and referral plans. Demonstrated understanding of instructions, follow-up care. 18:01 Patient left the ED. iw Signatures: Dispatcher [employer] EDMS Mumtaz Goodson PA PA jmm Williams, Irene RN RN Stephen Miranda RN RN Margarita Sampson Lynsay, RN RN ll1
--- NOTE | 2022-09-11 17:49 | EDPHYS ---
Physician Documentation [facility] Name: Taisha Gavin Age: 37 yrs Sex: Female : 1985 Arrival Date: 09/11/2022 Time: 14:28 Bed 6 Private MD: ED Physician Dion Chong HPI: 09/11 14:37 This 37 yrs old Black Female presents to ER via EMS with complaints of Seizure. jmm 14:37 The patient presents after having a single isolated seizure. Character of seizure(s): jmm Loss of consciousness: the patient experienced loss of consciousness, Motor activity: generalized, Incontinence: none. Seizure onset: just prior to arrival. Context: the seizure(s) was witnessed, by no one. Seizure Hx: Seizure medications: Keppra. Patient states she has not taken her Keppra in 2 days. Also states that she has not taken her Diamox.. PROCESS COACH: 18:01 LMP N/A - control method, upt negative iw Historical: - Allergies: 14:31 Codeine; bp 14:31 Lasix; bp - Home Meds: 14:31 Keppra Oral [Active]; bp - PMHx: 14:31 Hydrocephalus; bp - PSHx: 14:31 Appendectomy; section; Cholecystectomy; Tubal reversal; bp - Immunization history:: Adult Immunizations up to date. - Social history:: Smoking status: unknown. ROS: 14:37 Constitutional: Negative for fever, chills, and weight loss, Cardiovascular: Negative jmm for chest pain, palpitations, and edema, Respiratory: Negative for shortness of breath, cough, wheezing, and pleuritic chest pain. 14:37 Neuro: Positive for headache. 14:37 All other systems are negative. Exam: 14:37 Head/Face: atraumatic. Eyes: EOMI, no conjunctival erythema appreciated ENT: Moist jmm Mucus Membranes Neck: Trachea midline, Supple Chest/axilla: Normal chest wall appearance and motion. Cardiovascular: Regular rate and rhythm. No edema appreciated Respiratory: Normal respirations, no respiratory distress appreciated Abdomen/GI: Non distended Back: Normal ROM Skin: General appearance color normal 14:37 Constitutional: The patient appears Postictal 14:37 Musculoskeletal/extremity: ROM: intact in all extremities. 14:37 Skin: Appearance: Color: normal in color. 14:37 Neuro: Motor: is normal. 14:37 Psych: Behavior/mood is pleasant, cooperative. Vital Signs: 14:28 BP 126 / 83; Pulse 79; Resp 16; Temp 98.4; Pulse Ox 99% ; bp 14:32 BP 138 / 104; Pulse 101; Resp 17; Temp 98.6; Pulse Ox 97% ; ll1 15:50 BP 144 / 97; Pulse 90; Resp 16; Pulse Ox 100% on R/A; Pain 10/10; ll1 17:03 BP 135 / 86; Pulse 71; Resp 16; Pulse Ox 98% on R/A; ll1 17:33 BP 129 / 81; Pulse 68; Resp 16; Pulse Ox 97% ; ll1 MDM: 14:37 Patient medically screened. [facility] 17:47 Data reviewed: vital signs, nurses notes. I considered the following discharge [facility] prescriptions or medication management in the emergency department Medications were administered in the Emergency Department. See MAR. Counseling: I had a detailed discussion with the patient and/or guardian regarding: the historical points, exam findings, and any diagnostic results supporting the discharge/admit diagnosis, lab results, radiology results, the need for outpatient follow up, to return to the emergency department if symptoms worsen or persist or if there are any questions or concerns that arise at home. ED course: Headache relieved in the ED. Patient vies follow-up with neurology and otherwise given strict return precautions. Patient understood and agrees plan of care. 09/11 14:37 Order name: Acetaminophen; Complete Time: 15:31 [facility] 09/11 14:37 Order name: Basic Metabolic Panel; Complete Time: 15:31 [facility] 09/11 14:37 Order name: CBC with Diff; Complete Time: 14:57 [facility] 09/11 14:37 Order name: ETOH Level; Complete Time: 15:13 [facility] 09/11 14:37 Order name: Hepatic Function; Complete Time: 15:31 [facility] 09/11 14:37 Order name: PT-INR; Complete Time: 15:31 [facility] 09/11 14:37 Order name: Ptt, Activated; Complete Time: 15:31 [facility] 09/11 14:37 Order name: Salicylate; Complete Time: 15:49 [facility] 09/11 14:37 Order name: Urine Drug Screen; Complete Time: 17:06 [facility] 09/11 14:38 Order name: CT Head Brain wo Cont; Complete Time: 15:14 [facility] 09/11 16:31 Order name: Urine Dipstick-Ancillary; Complete Time: 16:36 MS 09/11 16:33 Order name: Urine --Ancillary (enter results); Complete Time: 16:52 eb 09/11 14:37 Order name: EKG; Complete Time: 14:38 [facility] 09/11 14:37 Order name: EKG - Nurse/Tech; Complete Time: 15:02 [facility] 09/11 14:37 Order name: IV Saline Lock; Complete Time: 14:46 [facility] 09/11 14:37 Order name: Labs collected and sent; Complete Time: 14:46 [facility] 09/11 14:37 Order name: Urine Dipstick-Ancillary (obtain specimen); Complete Time: 16:32 [facility] Administered Medications: 15:19 Drug: Zofran (Ondansetron) 4 mg Route: IVP; Site: right antecubital; 1 15:52 Follow up: Response: No adverse reaction; Nausea is decreased; RASS: Alert and Calm (0) 1 15:34 Drug: Keppra (levETIRAcetam) 1000 mg Route: IV; Rate: calculated rate; Site: right ll1 antecubital; 15:52 Follow up: Response: No adverse reaction; IV Status: Completed infusion; IV Intake: ll1 100ml 15:50 Drug: Acetaminophen 1000 mg {Note: BILLS pain 10/10.} Route: PO; ll1 18:01 Follow up: Response: No adverse reaction iw 16:02 Drug: NS 0.9% 500 ml Route: IV; Rate: bolus; Site: right antecubital; ll1 18:02 Follow up: Response: No adverse reaction; IV Status: Completed infusion; IV Intake: iw 500ml 16:02 Drug: Reglan (metoCLOPramide) 10 mg Route: IVP; Site: right antecubital; ll1 18:01 Follow up: Response: No adverse reaction iw Disposition Summary: 09/11/22 17:48 Discharge Ordered Location: Home jmm Condition: Stable jmm Diagnosis - Other seizures jmm Followup: jmm - With: Abrahan Ruano MD - When: 1 - 2 days - Reason: Recheck today's complaints, Continuance of care, Re-evaluation by your physician Discharge Instructions: - Seizure, Adult jmm - Discharge Summary Sheet ll1 Forms: - Medication Reconciliation Form [facility] - Thank You Letter rosalina - Antibiotic Education maryann - Prescription Opioid Use maryann - Work release form ll1 Signatures: Dispatcher [employer] Mumtaz Saldaña PA PA jmm Peltier, Brian, RN RN Andrew Marcos RN RN 1 Essie Joyce RN
[2022-09-11 18:18] VITALS: TEMP 98.6
[2022-09-11 18:25] VITALS: BP 129/81; O2SAT 97
== END 2022-09-11 18:01 | disposition home or self-care (01) ==
LOC: ER 14:17
DX: G40.89 Other seizures (principal)
CPT/HCPCS: 36415; 70450; 80048; 80076; 80307; 81003; 81025; 85025; 85610; 85730; 93005; 96361; 96365; 96375; 99285; G0480; J1953; J2405; J2765; J7040

== ENCOUNTER 2023-07-16 19:59 | Emergency (ER) | payer SELFPAY ==
--- OUTSIDE RECORDS SUMMARY | 2023-07-16 20:03 | XMS REPORT | Continuity of Care Document ---
Author Name Unknown Address [address] [place] [address] [facility] Address [address] [place] [address] Care Team Providers Care Real Estate Site Analyst Name Role Phone Steff Arya Singh Primary Care Physician + [phone] [email or web address] Attending Clinician UnavailLupe Clinton Attending Clinician [phone] Lupe BRENNER Attending Clinician Unavailable DEO LOPES Attending Clinician Unavailable Deo Lopes MD Attending Clinician [phone] Nurse, Adc Pob Immunization Attending Clinician Unavailable Bakari Coats DO Attending Clinician [phone] [email or web address] Admitting Clinician UnavailLupe Dickinson Admitting Clinician Unavailable Problems Condition Name Condition Details Condition Category Status Onset Date Resolution Date Last Treatment Date Treating Clinician Comments Source No known active problems No known active problems Disease [facility] Allergies, Adverse Reactions, Alerts Allergy Name Allergy Type Status Severity Reaction(s) Onset Date Inactive Date Treating Clinician Comments Source Kezia andersen to adverse reaction s Active Itching 2021-08 0-14 00:00: 00 [facility] Furosemi de Propensi ty to adverse reaction s Active Itching 2021-08 0-14 00:00: 00 [facility] CODEINE DRUG INGREDI Active ITCHING 2021-08 0-14 00:00: 00 [facility] FUROSEMI DE DRUG INGREDI Active ITCHING 2021-08 0-14 00:00: 00 [facility] Codeine Propensi ty to adverse reaction s Active Rash 11-01 00:00: 00 [facility] Furosemi de Propensi ty to adverse reaction s Active Hives 11-01 00:00: 00 [facility] CODEINE DRUG INGREDI Active Rash 11-01 00:00: 00 [facility] FUROSEMI DE DRUG INGREDI Active Hives 11-01 00:00: 00 [facility] Social History Social Habit Start Date Stop Date Quantity Comments Source Exposure to SARS-CoV-2 (event) 2022-06-05 00:00:00 2022-06-15 14:33:00 Not sure [facility] Sex Assigned At 1985 00:00:00 1985 00:00:00 [facility] Smoking Status Start Date Stop Date Source Tobacco smoking consumption unknown [facility] Medications Ordered Medication Name Filled Medication Name Start Date Stop Date Current Medication? Ordering Clinician Indication Dosage Frequency Signature (SIG) Comments Components Source cefdinir (OMNICEF) capsule 300 mg 2021-08 00:30: 00 06-16 00:31 :00 No 300mg 300 mg, Oral, ONCE, 1 dose, On Tue06/15/22 at 1830, CAROLE
Re ason for Anti-Infec tive: Documented Infection< br>Documen roxanne Infection Site: HEENT
D uration of Therapy: 7 days [facility] NaCl 0.9% (NS) bolus infusion 1,000 mL 2021-08 00:15: 00 06-16 00:34 :00 No 1000mL at 999 mL/hr, 1,000 mL, IV Infusion, ONCE, 1 dose, On Tue06/15/22 at 1815, STAT [facility] levETIRAcet am (KEPPRA) in NACL (ISO-OS) 1,000 mg/100 mL RTU 2021-08 22:00: 00 06-15 22:25 :55 No 1000mg 1,000 mg, IV Piggyback, ONCE, 1 dose, On Tue06/15/22 at 1600, Administer over 15 Minutes, 100 mL [facility] acetaminoph en (TYLENOL) tablet 1,000 mg 2021-08 21:30: 00 06-15 21:22 :00 No 1000mg 1,000 mg, Oral, ONCE, 1 dose, On Tue06/15/22 at 1530, CAROLE [facility] levETIRAcet am (KEPPRA) 750 mg tablet 2021-08 00:00: 00 06-30 05:59 :00 No [id number] 750mg Take 1 tablet by mouth in the morning and 1 tablet in the evening. Do all this for 14 days. [facility] cefdinir 300 mg capsule 2021-08 00:00: 00 06-23 05:59 :00 No [id number] 300mg Take 1 capsule by mouth every 12 (twelve) hours for 7 days. [facility] metoclopram antoni HCl (REGLAN) injection 10 mg 2021-0814 17:30: 00 05-21 17:19 :00 No 10mg 10 mg, Slow IV Push, ONCE, 1 dose, On Tue05/21/22 at 1230, CAROLE [facility] proMETHazin e (PHENERGAN) 25 mg tablet 11-01 00:00: 00 Yes 25mg Take 1 Tab by mouth every 6 (six) hours as needed for Nausea and Vomiting (headache) . [facility] Vital Signs Vital Name Observation Time Observation Value Comments S ource Systolic blood pressure 2022-06-15 23:38:00 128 mm[Hg] [facility] Diastolic blood pressure 2022-06-15 23:38:00 86 mm[Hg] [facility] Heart rate 2022-06-15 23:38:00 63 /min [facility] Respiratory rate 2022-06-15 23:38:00 15 /min [facility] Oxygen saturation in Arterial blood by Pulse oximetry 2022-06-15 23:38:00 100 /min [facility] Body temperature 2022-06-15 20:33:00 37.33 [place] [facility] Body height 2022-06-15 20:33:00 160 cm [facility] Body weight 2022-06-15 20:33:00 71.668 kg [facility] BMI 2022-06-15 20:33:00 27.99 kg/m2 [facility] Systolic blood pressure 2022-05-21 17:30:00 117 mm[Hg] [facility] Diastolic blood pressure 2022-05-21 17:30:00 71 mm[Hg] [facility] Heart rate 2022-05-21 17:30:00 63 /min [facility] Respiratory rate 2022-05-21 17:30:00 10 /min [facility] Oxygen saturation in Arterial blood by Pulse oximetry 2022-05-21 17:30:00 100 /min [facility] Body temperature 2022-05-21 16:55:50 36.11 [place] [facility] Body height 2022-05-21 16:50:00 160 cm [facility] Body weight 2022-05-21 16:50:00 72.576 kg [facility] BMI 2022-05-21 16:50:00 28.34 kg/m2 [facility] Procedures Procedure Date / Time Performed Performing Clinician Source POCT TEST 2022-06-15 23:18:00 Lupe Brenner [facility] URINE DRUG (IMMUNOASSAY) - COMPREHENSIVE DRUG SCREEN 2022-06-15 23:17:00 Lupe Brenner [facility] URINALYSIS 2022-06-15 23:15:00 Lupe Brenner [facility] CT CERVICAL SPINE WO CONTRAST 2022-06-15 21:46:53 Lupe Brenner [facility] CT HEAD WO CONTRAST 2022-06-15 21:46:53 Lupe Brenner [facility] COMP. METABOLIC PANEL ([id number]) 2022-06-15 21:04:00 Lupe Brenner [facility] CBC WITH DIFF 2022-06-15 21:04:00 Lupe Brenner [facility] NOTICE OF PRIVACY PRACTICES 2022-05-21 17:32:32 Doctor Unassigned, [place] [facility] CONSENT/REFUSAL FOR DIAGNOSIS AND TREATMENT 2022-05-21 17:31:00 Doctor Unassigned, [place] [facility] MAGNESIUM 2022-05-21 16:53:00 Deo Lopes [facility] TEST, SERUM 2022-05-21 16:53:00 Ronny Lopes [facility] COMP. METABOLIC PANEL ([id number]) 2022-05-21 16:53:00 Deo Lopes [facility] CBC WITH DIFF 2022-05-21 16:53:00 Deo Lopes [facility] SARS-COV-2 COVID-19 VACCINE,0.3ML,IM (PFIZER) 2020-12-12 14:31:35 Doctor Unassigned, [place] [facility] Plan of Care Planned Activity Planned Date Details Comments Source Future Scheduled Test 2021-04-08 00:00:00 INFLUENZA VACCINE (Season Ended) [code = INFLUENZA VACCINE (Season Ended)] [facility] Future Scheduled Test 2021-01-02 00:00:00 SARS-CoV-2 (COVID-19) Vaccine (2 - Pfizer 2-dose series) [code = SARS-CoV-2 (COVID-19) Vaccine (2 - Pfizer 2-dose series)] [facility] Future Scheduled Test 2005 00:00:00 Screening for malignant neoplasm of cervix (procedure) [code = 702003788] [facility] Future Scheduled Test 2003 00:00:00 DTaP,Tdap,and Td Vaccines (1 - Tdap) [code = DTaP,Tdap,and Td Vaccines (1 - Tdap)] [facility] Future Scheduled Test 2002 00:00:00 Hepatitis C screening (procedure) [code = 449562899] [facility] Scheduled Test 1996 00:00:00 Depression screening (procedure) [code = 928404309] [facility] Scheduled Test 1985 00:00:00 VARICELLA VACCINES (1 of 2 - 2-dose childhood series) [code = VARICELLA VACCINES (1 of 2 - 2-dose childhood series)] [facility] Encounters Start Date/Time End Date/Time Encounter Type Admission Type Attending [facility] Facility Care Department Encounter ID Source 2023-06-07 00:00:00 2023-06-07 00:00:00 Outpatient [email or web address] [email or web address]_S [facility] [id number] [facility] 2022-06-15 14:32:00 2022-06-15 18:36:00 Emergency Lupe Brenner [facility] 1..840.114 [id number] [facility] 2022-06-15 14:32:00 2022-06-15 18:36:00 Emergency Lupe TEJADA [facility] [id number] [facility] 2022-05-21 11:48:00 2022-05-21 13:06:00 Emergency X DEO LOPES [facility] ERT [id number] [facility] 2022-05-21 11:48:00 2022-05-21 13:06:00 Emergency X DEO LOPES [facility] ERT [id number] [facility] 2022-05-21 11:48:00 2022-05-21 13:06:00 Emergency Deo Lopes [facility] 1..[id number] [facility] Results Test Description Test Time Test Comments Results Result Co mments Source [facility]. METABOLIC PANEL ([id number])2022-06-15 21:31:27* Test Item Value Reference Range Interpretation Comme nts NA (test code = 0619650914) 139 mmol/L 135-145 K (test code = 4546637640) 3.7 mmol/L 3.5-5.0 CL (test code = 9899080781) 107 mmol/L 98-108 CO2 TOTAL (test code = 7533566476) 25 mmol/L 23-31 AGAP (test code = 1361223601) 2-16 BUN (test code = 9154615926) 6 mg/dL 7-23 L GLUCOSE (test code = 2823397738) 89 mg/dL 70-110 CREATININE (test code = 4046288720) 0.71 mg/dL 0.50-1.04 TOTAL BILI (test code = 2165668547) 0.4 mg/dL 0.1-1.1 CALCIUM (test code = 4011707412) 8.9 mg/dL 8.6-10.6 T PROTEIN (test code = 8130893907) 7.3 g/dL 6.3-8.2 ALBUMIN (test code = 4572980375) 4.4 g/dL 3.5-5.0 ALK PHOS (test code = 6349806626) 67 U/L 34-122 ALTv (test code = 1742-6) 52 U/L 5-35 H AST(SGOT) (test code = 7793295319) 32 U/L 13-40 eGFR (test code = 6374829933) mL/min/1.73m2 MARKEL (test code = MARKEL) Association of [...] or abnormalities in imaging tests). Lab Interpretation (test code = 86872-5) Abnormal [facility] WITH [id number] 21:16:48* Test Item Value Reference Range Interpretation Comme nts WBC (test code = 6690-2) See_Comment [[facility] [employer]] The system which generated this result transmitted reference range: 4.30 - 11.10 10*3/?L. The reference range was not used to interpret this result as normal/abnormal. RBC (test code = 789-8) See_Comment [[employer] [employer]] The system which generated this result transmitted reference range: 3.93 - 5.25 10*6/?L. The reference range was not used to interpret this result as normal/abnormal. HGB (test code = 718-7) 12.0 g/dL 11.6-15.0 HCT (test code = 4544-3) 34.9 % 35.7-45.2 L MCV (test code = 787-2) 85.7 fL 80.6-95.5 MCH (test code = 785-6) 29.5 pg 25.9-32.8 MCHC (test code = 786-4) 34.4 g/dL 31.6-35.1 RDW-SD (test code = 34046-0) 47.8 fL 39.0-49.9 RDW-CV (test code = 788-0) 15.2 % 12.0-15.5 PLT (test code = 777-3) See_Comment [Automated messa ge] The system which generated this result transmitted reference range: 166 - 358 10*3/?L. The reference range was not used to interpret this result as normal/abnormal. MPV (test code = 28426-9) 11.0 fL 9.5-12.9 NRBC/100 WBC (test code = 3705627735) See_Comment [Automated me ssage] The system which generated this result transmitted reference range: 0.0 - 10.0 /100 WBCs. The reference range was not used to interpret this result as normal/abnormal. NRBC x10^3 (test code = 7723067087) See_Comment [Automated messa ge] The system which generated this result transmitted reference range: 10*3/?L. The reference range was not used to interpret this result as normal/abnormal. GRAN MAT (NEUT) % (test code = 770-8) 50.4 % IMM GRAN % (test code = 7031872596) 0.20 % LYMPH % (test code = 736-9) 40.0 % MONO % (test code = 5905-5) 6.8 % EOS % (test code = 713-8) 2.3 % BASO % (test code = 706-2) 0.3 % GRAN MAT x10^3(ANC) (test code = 2861172390) 3.26 10*3/uL 1.88-7.09 IMM GRAN x10^3 (test code = 2566657096) 0.00-0.06 LYMPH x10^3 (test code = 731-0) 2.59 10*3/uL 1.32-3.29 MONO x10^3 (test code = 742-7) 0.44 10*3/uL 0.33-0.92 EOS x10^3 (test code = 711-2) 0.15 10*3/uL 0.03-0.39 BASO x10^3 (test code = 704-7) 0.01-0.07 Lab Interpretation (test code = 10137-3) Abnormal [facility]"
[2023-07-16 20:30] LABS: Absolute Lymphocytes (CBC) 1.8 K/uL (0.7-4.9); Hematocrit 33.7 % (36.0-45.0); Lymphocytes % 30.4 % (15.3-44.8); MCV 80.8 fL (80-100); MPV 7.6 fL (7.6-11.3); Platelets 326 thou/uL (152-406); RBC Red Blood Cell Count 4.17 M/uL (3.86-4.86)
[2023-07-16] MEDS ORDERED: LEVETIRACETAM 500 MG/5 ML VIAL IV ONE (20:32)
[2023-07-16] MEDS ORDERED: NA CHLORIDE 0.9% 200 ML ONE (20:33)
[2023-07-16 20:42] LABS: Albumin 3.7 g/dL (3.4-5.0); Bilirubin Total 0.2 mg/dL (0.2-1.0); Potassium 4.1 mEq/L (3.5-5.1); Protein, Total 8.6 g/dL (6.4-8.2)
[2023-07-16] MEDS ORDERED: ACETAMINOPHEN 500 MG TAB ONE (21:13)
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
[2023-07-16 22:40] VITALS: TEMP 98.1
[2023-07-16 22:42] VITALS: BP 146/103; O2SAT 100
== END 2023-07-16 22:17 | disposition home or self-care (01) ==
LOC: ER 19:59
DX: G40.89 Other seizures (principal); Z88.0 Allergy status to penicillin; Z88.5 Allergy status to narcotic agent; Z88.8 Allergy status to other drugs, medicaments and biological substances
CPT/HCPCS: 36415; 80053; 84703; 85025; 96374; 99284; J1953

== ENCOUNTER → 2023-09-26 | Emergency (ER) | payer SELFPAY ==
[~2023-09-26] MED LIST: KETOROLAC 30 MG/ML INJ ONE; LEVETIRACETAM 500 MG/5 ML VIAL IV ONE; NA CHLORIDE 0.9% 1,000 ML ONE; NA CHLORIDE 0.9% 100 ML ONE
--- OUTSIDE RECORDS SUMMARY | 2023-09-26 19:29 | XMS REPORT | Continuity of Care Document ---
Author Name Unknown Address [address] [facility] [address] [place] [address] [facility] thconnect Address [address] [facility] [place] [address] Care Team Providers Care Slate Worker Name Role Phone JENARO REMY JR Primary Care Physician NAVEED Rosario Attending Clinician Unavailab snehal [email or web address] Attending Clinician Unavaila Lupe Mendes Attending Clinician [phone] Lupe BRENNER Attending Clinician Unavailable DEO SHELDON Attending Clinician Unavailable Deo Sheldon MD Attending Clinician [phone] Nurse, Adc Pob Immunization Attending Clinician Unavailable Bakari Coats DO Attending Clinician [phone] [email or web address] Admitting Clinician Unavaila Lupe Miranda Admitting Clinician Unavailable Payers Payer Name Policy Type Policy Number Effective Date Expirati on Date Source [facility] MEDELLIN COPAY FOCUS 9 [id number] 2023 00:00:00 Problems Condition Name Condition Details Condition Category Status Onset Date Resolution Date Last Treatment Date Treating Clinician Comments Source No known active problems No known active problems Disease [facility] Allergies, Adverse Reactions, Alerts Allergy Name Allergy Type Status Severity Reaction(s) Onset Date Inactive Date Treating Clinician Comments Source FUROSEMI DE DRUG INGREDI Active ITCHING 2021-08 0-14 00:00: 00 [facility] Codeine Propensi ty to adverse reaction s Active Itching 2021-08 014 00:00: 00 [facility] Furosemi de Propensi ty to adverse reaction s Active Itching 2021-08 014 00:00: 00 [facility] CODEINE DRUG INGREDI Active ITCHING 2021-08 014 00:00: 00 [facility] Codeine Propensi ty to adverse reaction s Active Rash 3 00:00: 00 [facility] Furosemi de Propensi ty to adverse reaction s Active Hives 3 00:00: 00 [facility] CODEINE DRUG INGREDI Active Rash 327 00:00: 00 [facility] FUROSEMI DE DRUG INGREDI Active Hives 11-01 00:00: 00 [facility] Social History Social Habit Start Date Stop Date Quantity Comments Source Exposure to SARS-CoV-2 (event) 2022-06-05 00:00:00 2022-06-15 14:33:00 Not sure [facility] Sex Assigned At 1985 00:00:00 1985 00:00:00 [facility] Smoking Status Start Date Stop Date Source Tobacco smoking consumption unknown [facility] Medications Ordered Medication Name Filled [...] HEENT
D uration of Therapy: 7 days [facility] NaCl 0.9% (NS) bolus infusion 1,000 mL 2021-08 00:15: 00 06-16 00:34 :00 No 1000mL at 999 mL/hr, 1,000 mL, IV Infusion, ONCE, 1 dose, On Tue06/15/22 at 1815, STAT [facility] levETIRAcet am (KEPPRA) in NACL (ISO-OS) 1,000 mg/100 mL RTU 2021-08 22:00: 00 06-15 22:25 :55 No 1000mg 1,000 mg, IV Piggyback, ONCE, 1 dose, On Tue06/15/22 at 1600, Administer over 15 Minutes, 100 mL [facility] acetaminoph en (TYLENOL) tablet 1,000 mg 2021-08 21:30: 00 06-15 21:22 :00 No 1000mg 1,000 mg, Oral, ONCE, 1 dose, On Tue06/15/22 at 1530, CAROLE [facility] levETIRAcet am (KEPPRA) 750 mg tablet 2021-08 00:00: 00 06-30 05:59 :00 No [id number] 750mg Take 1 tablet by mouth in the morning and 1 tablet in the evening. Do all this for 14 days. [facility] cefdinir 300 mg capsule 2021-08 00:00: 00 06-23 05:59 :00 No [id number] 300mg Take 1 capsule by mouth every 12 (twelve) hours for 7 days. [facility] metoclopram antoni HCl (REGLAN) injection 10 mg 2021-08 17:30: 00 05-21 17:19 :00 No 10mg 10 mg, Slow IV Push, ONCE, 1 dose, On Tue05/21/22 at 1230, CAROLE [facility] proMETHazin e (PHENERGAN) 25 mg tablet 11-01 00:00: 00 Yes 25mg Take 1 Tab by mouth every 6 (six) hours as needed for Nausea and Vomiting (headache) . [facility] Vital Signs Vital Name Observation Time Observation Value Alvina toney Systolic blood pressure 2022-06-15 23:38:00 128 mm[Hg] [facility] Diastolic blood pressure 2022-06-15 23:38:00 86 mm[Hg] [facility] Heart rate 2022-06-15 23:38:00 63 /min Unive [facility] Respiratory rate 2022-06-15 23:38:00 15 /min [facility] Oxygen saturation in Arterial blood by Pulse oximetry 2022-06-15 23:38:00 100 /min [facility] Body temperature 2022-06-15 20:33:00 37.33 [place] [facility] Body height 2022-06-15 20:33:00 160 cm [facility] Body weight 2022-06-15 20:33:00 71.668 kg [facility] BMI 2022-06-15 20:33:00 27.99 kg/m2 [facility] Systolic blood pressure 2022-05-21 17:30:00 117 mm[Hg] [facility] Diastolic blood pressure 2022-05-21 17:30:00 71 mm[Hg] [facility] Heart rate 2022-05-21 17:30:00 63 /min Unive [facility] Respiratory rate 2022-05-21 17:30:00 10 /min [facility] Oxygen saturation in Arterial blood by Pulse oximetry 2022-05-21 17:30:00 100 /min [facility] Body temperature 2022-05-21 16:55:50 36.11 [place] [facility] Body height 2022-05-21 16:50:00 160 cm [facility] Body weight 2022-05-21 16:50:00 72.576 kg [facility] BMI 2022-05-21 16:50:00 28.34 kg/m2 [facility] Procedures Procedure Date / Time Performed Performing Clinician Source POCT TEST 2022-06-15 23:18:00 Lupe Brenner [facility] URINE DRUG (IMMUNOASSAY) - COMPREHENSIVE DRUG SCREEN 2022-06-15 23:17:00 Lupe Brenner [facility] URINALYSIS 2022-06-15 23:15:00 Lupe Brenner [facility] CT CERVICAL SPINE WO CONTRAST 2022-06-15 21:46:53 Lupe Brenner [facility] CT HEAD WO CONTRAST 2022-06-15 21:46:53 Lupe Brenner [facility] COMP. METABOLIC PANEL ([id number]) 2022-06-15 21:04:00 Lupe Brenner [facility] CBC WITH DIFF 2022-06-15 21:04:00 Lupe Brenner [facility] NOTICE OF PRIVACY PRACTICES 2022-05-21 17:32:32 Doctor Unassigned, [place] [facility] CONSENT/REFUSAL FOR DIAGNOSIS AND TREATMENT 2022-05-21 17:31:00 Doctor Unassigned, [place] [facility] MAGNESIUM 2022-05-21 16:53:00 [facility] TEST, SERUM 2022-05-21 16:53:00 Ronny Sheldon [facility] COMP. METABOLIC PANEL ([id number]) 2022-05-21 16:53:00 Deo Sheldon [facility] CBC WITH DIFF 2022-05-21 16:53:00 Deo Sheldon [facility] SARS-COV-2 COVID-19 VACCINE,0.3ML,IM (PFIZER) 2020-12-12 14:31:35 Doctor Unassigned, [place] [facility] Plan of Care Planned Activity Planned Date Details Comments Source Future Scheduled Test 2021-04-08 00:00:00 INFLUENZA VACCINE (Season Ended) [code = INFLUENZA VACCINE (Season Ended)] [facility] Future Scheduled Test 2021-01-02 00:00:00 SARS-CoV-2 (COVID-19) Vaccine (2 - Pfizer 2-dose series) [code = SARS-CoV-2 (COVID-19) Vaccine (2 - Pfizer 2-dose series)] [facility] Future Scheduled Test 2005 00:00:00 Screening for malignant neoplasm of cervix (procedure) [code = 494535099] [facility] Scheduled Test 2003 00:00:00 DTaP,Tdap,and Td Vaccines (1 - Tdap) [code = DTaP,Tdap,and Td Vaccines (1 - Tdap)] [facility] Scheduled Test 2002 00:00:00 Hepatitis C screening (procedure) [code = 905564738] [facility] Scheduled Test 1996 00:00:00 Depression screening (procedure) [code = 796712637] [facility] Scheduled Test 1985 00:00:00 VARICELLA VACCINES (1 of 2 - 2-dose childhood series) [code = VARICELLA VACCINES (1 of 2 - 2-dose childhood series)] [facility] Encounters Start Date/Time End Date/Time Encounter Type Admission Type Attending [facility] Facility Care Department Encounter ID Source 2023-10-11 14:00:00 2023-10-11 14:00:00 Outpatient NAVEED ALVAREZ [id number] Destinee Swain 2023-06-07 00:00:00 2023-06-07 00:00:00 Outpatient [email or web address]_Ka cynthiaa_S [facility] [id number] [facility] 2022-06-15 14:32:00 2022-06-15 18:36:00 Emergency Lupe Brenner [facility] [id number] [facility] 2022-06-15 14:32:00 2022-06-15 18:36:00 Emergency X Lupe BRENNER [facility] ERT [id number] [facility] 2022-05-21 11:48:00 2022-05-21 13:06:00 Emergency X DEO SHELDON [facility] ERT [id number] [facility] 2022-05-21 11:48:00 2022-05-21 13:06:00 Emergency X DEO SHELDON [facility] ERT [id number] [facility] 2022-05-21 11:48:00 2022-05-21 13:06:00 Emergency Deo Sheldon [facility] [id number] [facility] Results Test Description Test Time Test Comments Results Result Co mments Source [facility] ([id number][facility]2022-06-15 21:31:27* Test Item Value Reference Range Interpretation Comme nts NA (test code = 5939316229) 139 mmol/L 135-145 K (test code = 3967251781) 3.7 mmol/L 3.5-5.0 CL (test code = 1849782329) 107 mmol/L 98-108 CO2 TOTAL (test code = 4288041579) 25 mmol/L 23-31 AGAP (test code = 2310087441) 2-16 BUN (test code = 1295788480) 6 mg/dL 7-23 L GLUCOSE (test code = 4714784342) 89 mg/dL 70-110 CREATININE (test code = 1442658007) 0.71 mg/dL 0.50-1.04 TOTAL BILI (test code = 1184742949) 0.4 mg/dL 0.1-1.1 CALCIUM (test code = 1198538780) 8.9 mg/dL 8.6-10.6 T PROTEIN (test code = 8806971510) 7.3 g/dL 6.3-8.2 ALBUMIN (test code = 0683057844) 4.4 g/dL 3.5-5.0 ALK PHOS (test code = 7552769498) 67 U/L 34-122 ALTv (test code = 1742-6) 52 U/L 5-35 H AST(SGOT) (test code = 5620062739) 32 U/L 13-40 eGFR (test code = 3907843830) mL/min/1.73m2 MARKEL (test code = MARKEL) Association [...] imaging tests). Lab Interpretation (test code = 94330-4) [facility] WITH [id number] 21:16:48* Test Item Value Reference Range Interpretation Comme nts WBC (test code = 6690-2) See_Comment [[employer]] The system which generated this result transmitted reference range: 4.30 - 11.10 10*3/?L. The reference range was not used to interpret this result as normal/abnormal. RBC (test code = 789-8) See_Comment [Automated Sxbbm] The system which generated this result transmitted [...] 34.4 g/dL 31.6-35.1 RDW-SD (test code = 94983-7) 47.8 fL 39.0-49.9 RDW-CV (test code = 788-0) 15.2 % 12.0-15.5 PLT (test code = 777-3) See_Comment [Automated [employer]] The system which generated this result transmitted reference range: 166 - 358 10*3/?L. The reference range was not used to interpret this result as normal/abnormal. MPV (test code = 50791-6) 11.0 fL 9.5-12.9 NRBC/100 WBC (test code = 4117194526) See_Comment [[employer] ssage] The system which generated this result transmitted reference range: 0.0 - 10.0 /100 WBCs. The reference range was not used to interpret this result as normal/abnormal. NRBC x10^3 (test code = 7797672280) See_Comment [Automated [employer]] The system which generated this result transmitted reference range: 10*3/?L. The reference range was not used to interpret this result as normal/abnormal. GRAN MAT (NEUT) % (test code = 770-8) 50.4 % IMM GRAN % (test code = 0895409631) 0.20 % LYMPH % (test code = 736-9) 40.0 % MONO % (test code = 5905-5) 6.8 % EOS % (test code = 713-8) 2.3 % BASO % (test code = 706-2) 0.3 % GRAN MAT x10^3(ANC) (test code = 2527681417) 3.26 10*3/uL 1.88-7.09 IMM GRAN x10^3 (test code = 6889336938) 0.00-0.06 LYMPH x10^3 (test code = 731-0) 2.59 10*3/uL 1.32-3.29 MONO x10^3 (test code = 742-7) 0.44 10*3/uL 0.33-0.92 EOS x10^3 (test code = 711-2) 0.15 10*3/uL 0.03-0.39 BASO x10^3 (test code = 704-7) 0.01-0.07 Lab Interpretation (test code = 75996-8) Abnormal [facility]"
[2023-09-26 20:18] LABS: Absolute Lymphocytes (CBC) 2.1 K/uL (0.7-4.9); Hematocrit 28.8 % (36.0-45.0); MCV 78.7 fL (80-100); MPV 8.1 fL (7.6-11.3); Platelets 275 thou/uL (152-406); RBC Red Blood Cell Count 3.66 M/uL (3.86-4.86)
[2023-09-26 20:29] LABS: Protime INR 1.09
[2023-09-26 20:46] LABS: ALT/SGPT 24 U/L (13-56); AST/SGOT 13 U/L (15-37); Albumin 3.2 g/dL (3.4-5.0); Alkaline Phosphatase 64 U/L (45-117); BUN Blood Urea Nitrogen 13 mg/dL (7-18); Bicarbonate 26 mEq/L (21-32); Bilirubin Direct < 0.1 mg/dL (0-0.2); Bilirubin Indirect, Calculated ND mg/dL (0.2-0.8); Bilirubin Total 0.1 mg/dL (0.2-1.0); Glomerular Filtration Rate 75 ml/min (=/>90); Glucose Level 107 mg/dL (74-106); Magnesium 2.1 mg/dL (1.6-2.4); Potassium 3.7 mEq/L (3.5-5.1); Protein, Total 7.4 g/dL (6.4-8.2); Sodium Level 140 mEq/L (136-145); Troponin High Sensitivity < 3.0 pg/mL (<58.9)
--- NOTE | 2023-09-26 21:45 | RAD REPORT ---
EXAM DESCRIPTION: CT - Head Brain Wo Cont - 09/26/2023 9:01 pm CLINICAL HISTORY: SEIZURE COMPARISON: Head Brain Wo Cont dated 09/11/2022; Head Brain Wo Cont dated 09/28/2021 TECHNIQUE: Noncontrast head CT images were obtained without IV contrast. Multiplanar reformats were generated and reviewed. All CT scans are performed using dose optimization technique as appropriate and may include automated exposure control or mA/KV adjustment according to patient size. FINDINGS: No intracranial hemorrhage, mass, or edema. Midline structures are unremarkable. Normal ventricular caliber for age. [place]-white matter differentiation is preserved, without evidence of acute infarct. No abnormal extra- axial fluid collections. Mastoid air cells and visualized portions of the paranasal sinuses are clear. No acute bony findings. IMPRESSION: No evidence of an acute intracranial process.
[2023-09-26 23:26] LABS: Barbiturates POSITIVE (NEGATIVE); Benzodiazepines NEGATIVE (NEGATIVE); Cocaine NEGATIVE (NEGATIVE); METHAMPHETAM NEGATIVE (NEGATIVE); Methadone NEGATIVE (NEGATIVE); Opiates NEGATIVE (NEGATIVE); Phencyclidine NEGATIVE (NEGATIVE); THC Cannibis NEGATIVE (NEGATIVE)
--- NOTE | 2023-09-26 23:30 | ER ---
Nurse's Notes [facility] Name: Taisha Gavin Age: 38 yrs Sex: Female : 1985 Arrival Date: 09/26/2023 Time: 19:25 Bed 5 Private MD: Diagnosis: Other seizures Presentation: 09/26 19:29 Chief complaint: EMS states: POSSIBLE UNWITNESSED SZ AT HOME, H/O SZ D/O. Coronavirus bp screen: At this time, the client does not indicate any symptoms associated with coronavirus-19. Ebola Screen: No symptoms or risks identified at this time. Initial Sepsis Screen: Does the patient meet any 2 criteria? No. Patient's initial sepsis screen is negative. Does the patient have a suspected source of infection? No. Patient's initial sepsis screen is negative. Risk Assessment: Do you want to hurt yourself or someone else? Patient reports no desire to harm self or others. Onset of symptoms was September 26, 2023 at 19:00. 19:29 Method Of Arrival: EMS: [facility] bp 19:29 Acuity: CRISTHIAN 3 bp Triage Assessment: 19:31 General: Appears in no apparent distress. comfortable, Behavior is cooperative, bp appropriate for age, anxious. Pain: Complains of pain in head. Neuro: Level of Consciousness is awake, alert, obeys commands, Oriented to Appropriate for age Reports headache. Historical: - Allergies: 19:31 Codeine; bp 19:31 Lasix; bp 19:31 PENICILLINS; bp - Home Meds: 19:31 Keppra Oral [Active]; bp - PMHx: 19:31 Hydrocephalus; Seizure; bp - PSHx: 19:31 section; Appendectomy; Tubal reversal; Cholecystectomy; bp - Immunization history:: Adult Immunizations up to date. - Social history:: Smoking status: Patient denies any tobacco usage or history of. Screenin:00 [facility] ED Fall Risk Assessment (Adult) History of falling in the last 3 months, bp including since admission No falls in past 3 months (0 pts). Abuse screen: Denies threats or abuse. Denies injuries from another. Nutritional screening: No deficits noted. Tuberculosis screening: No symptoms or risk factors identified. Assessment: 19:45 General: SEE TRIAGE NOTE. bp 21:49 Reassessment: Patient appears in no apparent distress at this time. Patient is alert, bp oriented x 3, equal unlabored respirations, skin warm/dry/pink. Vital Signs: 19:29 BP 160 / 109; Pulse 71; Resp 16; Temp 97.9; Pulse Ox 100% ; bp 21:48 BP 155 / 99; Pulse 62; Resp 16; Pulse Ox 100% ; bp 23:45 BP 154 / 94; Pulse 85; Resp 18 S; Pulse Ox 100% on R/A; as6 ED Course: 19:28 Patient arrived in ED. vc1 19:29 Stephen Parish, RN is Primary Nurse. bp 19:31 Triage completed. bp 19:31 Arm band placed on. bp 19:32 Carol Spaulding PA-C is PHCP. sb4 19:32 Clark Sagastume MD is Attending Physician. sb4 20:00 Patient has correct armband on for positive identification. bp 20:00 Inserted saline lock: 22 gauge in right antecubital area, using aseptic technique. bp Blood collected. 21:03 CT Head Brain wo Cont In Process Unspecified. EDMS 23:00 Test, Urine Sent. as6 23:00 UDS Sent. as6 23:00 Urinalysis w/ reflexes Sent. as6 23:28 Abrahan Ruano MD is Referral Physician. sb4 23:45 Provided Education on: follow up. as6 23:45 No provider procedures requiring assistance completed. IV discontinued, intact, as6 bleeding controlled, No redness/swelling at site. Pressure dressing applied. Administered Medications: 20:00 Drug: Keppra IV 1000 mg IV at calculated rate once Route: IV; Rate: calculated rate; bp Site: right antecubital; 23:44 Follow up: Response: No adverse reaction; IV Status: Completed infusion; IV Intake: as6 100ml 21:48 Drug: NS 0.9% IV 1000 ml IV at 1 bolus Per protocol; 1000 mL bolus Route: IV; Rate: 1 bp bolus; Site: right antecubital; 23:44 Follow up: Response: No adverse reaction; IV Status: Completed infusion; IV Intake: as6 1000ml 21:48 Drug: Ketorolac IVP 30 mg IVP once Route: IVP; Site: right antecubital; bp 23:44 Follow up: Response: No adverse reaction as6 Medication: 23:44 VIS not applicable for this client. as6 Intake: 23:44 IV: 100ml; Total: 100ml. as6 23:44 IV: 1000ml; Total: 1100ml. as6 Outcome: :29 Discharge ordered by . sb4 23:45 Discharged to home ambulatory, as6 :45 Condition: stable 23:45 Discharge instructions given to patient, Instructed on discharge instructions, follow up and referral plans. Demonstrated understanding of instructions, follow-up care, :45 Patient left the ED. as6 Signatures: Dispatcher [employer] EDStephen Delgado, RN RN bp Israel Elizalde RN RN as6 Irina Mccauley RN RN vc1 Carol Spaulding PA-C PAXochilt sb4
--- NOTE | 2023-09-26 23:30 | EDPHYS ---
Physician Documentation [facility] Name: Taisha Gavin Age: 38 yrs Sex: Female : 1985 Arrival Date: 09/26/2023 Time: 19:25 Bed 5 Private MD: ED Physician Clark Sagastume HPI: 09/26 19:45 This 38 yrs old Black Female presents to ER via EMS with complaints of seizure. sb4 22:30 possible seizure at home. patient states she had a bad headache, took a Fioricet, and sb4 when she woke up she was hurting all over her body like she had a seizure. reports compliance with her keppra. is post ictal upon arrival. still complaining of headache. no other associated signs and symptoms. Historical: - Allergies: 19:31 Codeine; bp 19:31 Lasix; bp 19:31 PENICILLINS; bp - Home Meds: 19:31 Keppra Oral [Active]; bp - PMHx: 19:31 Hydrocephalus; Seizure; bp - PSHx: 19:31 section; Appendectomy; Tubal reversal; Cholecystectomy; bp - Immunization history:: Adult Immunizations up to date. - Social history:: Smoking status: Patient denies any tobacco usage or history of. ROS: 19:45 Constitutional: Negative for fever, chills, and weight loss, sb4 19:45 Neuro: Positive for seizure activity, 19:45 All other systems are negative, Exam: 20:20 Head/Face: Normocephalic, atraumatic. Eyes: Extra-ocular motions intact. Periorbital sb4 areas with no swelling, redness, or edema. ENT: Mucous membranes moist. Cardiovascular: Regular rate and rhythm with a normal S1 and S2. Respiratory: Lungs have equal breath sounds bilaterally, clear to auscultation and percussion. No rales, rhonchi or wheezes noted. No increased work of breathing, no retractions or nasal flaring. Abdomen/GI: Soft, non-tender, no distension. Skin: Warm, dry with normal turgor. Normal color with no rashes, no lesions, and no evidence of cellulitis. MS/ Extremity: Pulses equal, no cyanosis. Neurovascular intact. Full, normal range of motion. Neuro: Awake and alert, GCS 15, oriented to person, place, time, and situation. Motor strength 5/5 in all extremities. Sensory grossly intact. 20:20 Constitutional: The patient appears alert, awake, lethargic, Vital Signs: 19:29 BP 160 / 109; Pulse 71; Resp 16; Temp 97.9; Pulse Ox 100% ; bp 21:48 BP 155 / 99; Pulse 62; Resp 16; Pulse Ox 100% ; bp 23:45 BP 154 / 94; Pulse 85; Resp 18 S; Pulse Ox 100% on R/A; as6 MDM: 19:32 Patient medically screened. sb4 23:28 Data reviewed: vital signs, nurses notes, EMS record, lab test result(s), EKG, sb4 radiologic studies, and as a result, I will discharge patient. Counseling: I had a detailed discussion with the patient and/or guardian regarding the historical points, exam findings, and any diagnostic results supporting the discharge/admit diagnosis, the presence of at least one elevated blood pressure reading (>120/80) during this emergency department visit, lab results, radiology results, the need for outpatient follow up, a neurologist, to return to the emergency department if symptoms worsen or persist or if there are any questions or concerns that arise at home. 09/26 19:40 Order name: Basic Metabolic Panel; Complete Time: 20:47 sb4 09/26 19:40 Order name: CBC with Diff; Complete Time: 20:18 09/26 19:40 Order name: Hepatic Function; Complete Time: 20:47 09/26 19:40 Order name: Magnesium; Complete Time: 20:47 09/26 19:40 Order name: Test, Urine 09/26 19:40 Order name: Protime (+inr); Complete Time: 20:30 09/26 19:40 Order name: Ptt, Activated; Complete Time: 20:30 sb4 09/26 19:40 Order name: Troponin High Sensitivity; Complete Time: 20:47 sb09/26 19:40 Order name: UDS; Complete Time: 23:28 sb09/26 19:40 Order name: Urinalysis w/ reflexes 09/26 19:40 Order name: CT Head Brain wo Cont; Complete Time: 21:50 sb4 09/26 19:40 Order name: Cardiac monitoring; Complete Time: 19:50 sb4 09/26 19:40 Order name: IV Saline Lock; Complete Time: 20:43 sb4 09/26 19:40 Order name: Labs collected and sent; Complete Time: 20:43 sb4 09/26 19:40 Order name: O2 Per Protocol; Complete Time: 19:49 sb4 09/26 19:40 Order name: O2 Sat Monitoring; Complete Time: 19:49 sb4 Administered Medications: 20:00 Drug: Keppra IV 1000 mg IV at calculated rate once Route: IV; Rate: calculated rate; bp Site: right antecubital; 23:44 Follow up: Response: No adverse reaction; IV Status: Completed infusion; IV Intake: as6 100ml 21:48 Drug: NS 0.9% IV 1000 ml IV at 1 bolus Per protocol; 1000 mL bolus Route: IV; Rate: 1 bp bolus; Site: right antecubital; 23:44 Follow up: Response: No adverse reaction; IV Status: Completed infusion; IV Intake: as6 1000ml 21:48 Drug: Ketorolac IVP 30 mg IVP once Route: IVP; Site: right antecubital; bp 23:44 Follow up: Response: No adverse reaction as6 Disposition Summary: 09/26/23 23:29 Discharge Ordered Notes: Location: Home sb4 Problem: an acute exacerbation sb4 Symptoms: have improved sb4 Condition: Stable sb4 Diagnosis - Other seizures sb4 Followup: sb4 - With: Abrahan Ruano MD - When: 2 - 3 days - Reason: Recheck today's complaints, Re-evaluation by your physician Discharge Instructions: - Discharge Summary Sheet sb4 - Seizure, Adult sb4 Forms: - Thank You Letter sb4 - Patient Portal Instructions sb4 - Leadership Thank You Letter sb4 Signatures: Dispatcher [employer] Setphen Hernandez RN RN Carol Lackey PA-C PA-C sbIsrael Bernabe RN as6 Corrections: (The following items were deleted from the chart) 22:31 19:45 daughter witnessed patient having a seizure, called EMS. patient is postictal sb4 upon arrival. reports compliance with her keppra. no other associated signs/symptoms. sb4
[2023-09-26 23:58] LABS: Specific Gravity 1.034 (1.005-1.030)
[2023-09-27 00:16] LABS: Specific Gravity > 1.030 (1.005-1.030); Urine Bacteria None Seen /HPF (<20); Urine Bilirubin NEGATIVE (Negative); Urine Blood Negative (Negative); Urine Clarity Clear (Clear); Urine Color Light-Yellow (Yellow); Urine Glucose NEGATIVE (Negative); Urine Mucus Slight /HPF (None Seen); Urine Protein TRACE (Negative); Urine RBC <5 /HPF (None Seen); Urine Urobilinogen Normal (Normal)
[2023-09-27 00:24] VITALS: BP 154/94; TEMP 97.9; O2SAT 100
== END ==
LOC: ER 19:25
DX: G40.89 Other seizures (principal)
CPT/HCPCS: 36415; 70450; 80048; 80076; 80307; 81001; 81025; 83735; 84484; 85025; 85610; 85730; 96365; 96366; 96375; 99284; J1953; J7030

== ENCOUNTER 2023-11-06 14:09 | Emergency (ER) | payer OTHER, SELFPAY ==
--- OUTSIDE RECORDS SUMMARY | 2023-11-06 14:11 | XMS REPORT | Continuity of Care Document ---
Author Name Unknown Address [address] [facility] [address] [place] [address] [facility] thconnect Address [address] [place] [address] Care Team Providers Care Director Of Cloud Services Name Role Phone Pcp, Patient Does Not Have A Primary Care Physic phillip DARREL BIRD Attending Clinician DARREL Gates Attending Clinician UnavailJAI Ochoa Attending Clinician UnavailNAVEED Shahid Attending Clinician Unavailab brian Doctor Unassigned, [place] Attending Clinician U zoe ESPINOZA MD Attending Clinician UnavailZULEIKA Ron Attending Clinician Unavailjuliet e LAB90 Attending Clinician Unavailable [id number]_S Attending Clinician Lupe Loredo Attending Clinician [phone] Lupe BRENNER Attending Clinician Unavailable DEO SHELDON Attending Clinician Unavailable Deo Sheldon MD Attending Clinician Nurse, Adc Pob Immunization Attending Clinician Unavailable Jorge L MAYA Bakari Meeksan Attending Clinician [id number]_S Admitting Clinician UnavailLupe Dickinson Admitting Clinician Unavailable Payers Payer Name Policy Type Policy Number Effective Date Expirati on Date Source [facility] [id number] 2023 00:00:00 [facility] 9 [id number] 2023 00:00:00 Problems Condition Name Condition Details Condition Category Status Onset Date Resolution Date Last Treatment Date Treating Clinician Comments Source Seizures (multi HCC) Seizures (multi HCC) Disease Active 10-10 00:00: 00 Destinee salcido No known active problems No known active problems Disease [facility] Allergies, Adverse Reactions, Alerts Allergy Name Allergy Type Status Severity Reaction(s) Onset Date Inactive Date Treating Clinician Comments Source Codeine Propensi ty to adverse reaction s Active Itching 2021-08 0-14 00:00: 00 [facility] Furosemi de Propensi ty to adverse reaction s Active Itching 2021-08 0-14 00:00: 00 [facility] CODEINE DRUG INGREDI Active ITCHING 2021-08 0-14 00:00: 00 [facility] FUROSEMI DE DRUG INGREDI Active ITCHING 2021-08 0-14 00:00: 00 [facility] Codeine Propensi ty to adverse reaction s Active Rash 11-01 00:00: 00 [facility] Furosemi de Propensi ty to adverse reaction s Active Hives 11-01 00:00: 00 [facility] CODEINE DRUG INGREDI Active Rash 11-01 00:00: 00 [facility] FUROSEMI DE DRUG INGREDI Active Hives 11-01 00:00: 00 [facility] Codeine Propensi ty to adverse reaction s Active Hives 10-18 00:00: 00 Destinee salcido Furosemi de Sodium Propensi ty to adverse reaction s Active Itching 10-18 00:00: 00 Destinee salcido Social History Social Habit Start Date Stop Date Quantity Comments [facility] use [facility] 2023-10-25 00:00:00 2023-10-25 00:00:00 Smokeless tobacco non-user [facility] Alcohol intake 2023-10-25 00:00:00 2023-10-25 00:00:00 Ex-drinker (finding) [facility] History of Social function 2023-10-25 00:00:00 2023-10-25 00:00:00 [facility] Exposure to SARS-CoV-2 (event) 2022-06-05 00:00:00 2022-06-15 14:33:[address] [facility] Sex Assigned At 1985 00:00:00 1985 00:00:00 Ihsan Rodney Smoking Status Start Date Stop Date Source Tobacco smoking consumption unknown [facility] Never smoked tobacco [facility] Medications Ordered Medication Name Filled Medication Name Start Date Stop Date Current Medication? Ordering Clinician Indication Dosage Frequency Signature (SIG) Comments Components Source levETIRAcet am 1,000 mg tablet 10-24 13:18: 22 Yes 1000mg Take 1 tablet by mouth in the morning and 1 tablet in the evening. [facility] busPIRone 10 mg tablet 10-24 13:18: 22 Yes 10mg Take 1 tablet by mouth in the morning and 1 tablet in the evening. [facility] acetaminoph en-caff-but albital per capsule 10-24 13:18: 22 Yes 1{capsu le} Take 1 capsule by mouth every 4 (four) hours as needed for Headache. [facility] levETIRAcet am 1,000 mg tablet 10-24 13:18: 22 Yes 1000mg Take 1 tablet by mouth in the morning and 1 tablet in the evening. [facility] busPIRone 10 mg tablet 10-24 13:18: 22 Yes 10mg Take 1 tablet by mouth in the morning and 1 tablet in the evening. [facility] acetaminoph en-caff-but albital per capsule 10-24 13:18: 22 Yes 1{capsu le} Take 1 capsule by mouth every 4 (four) hours as needed for Headache. [facility] levETIRAcet am 1,000 mg tablet 10-24 13:18: 22 Yes 1000mg Take 1 tablet by mouth in the morning and 1 tablet in the evening. [facility] busPIRone 10 mg tablet 10-24 13:18: 22 Yes 10mg Take 1 tablet by mouth in the morning and 1 tablet in the evening. [facility] acetaminoph en-caff-but albital per capsule 10-24 13:18: 22 Yes 1{capsu le} Take 1 capsule by mouth every 4 (four) hours as needed for Headache. [facility] levETIRAcet am 1,000 mg tablet 10-24 13:18: 22 Yes 1000mg Take 1 tablet by mouth in the morning and 1 tablet in the evening. [facility] busPIRone 10 mg tablet 10-24 13:18: 22 Yes 10mg Take 1 tablet by mouth in the morning and 1 tablet in the evening. [facility] acetaminoph en-caff-but albital per capsule 10-24 13:18: 22 Yes 1{capsu le} Take 1 capsule by mouth every 4 (four) hours as needed for Headache. [facility] lacosamide (VIMPAT) 50 mg tablet 10-24 00:00: 00 11-15 04:59 :00 Yes [id number] Take 1 tablet by mouth 2 (two) times daily for 7 days, THEN 2 tablets 2 (two) times daily for 7 days, THEN 3 tablets 2 (two) times daily for 7 days. [facility] lacosamide (VIMPAT) 50 mg tablet 2023-10-24 00:00: 00 11-15 04:59 :00 Yes [id number] Take 1 tablet by mouth 2 (two) times daily for 7 days, THEN 2 tablets 2 (two) times daily for 7 days, THEN 3 tablets 2 (two) times daily for 7 days. [facility] lacosamide (VIMPAT) 50 mg tablet 0 10-24 00:00: 00 11-15 04:59 :00 Yes [id number] Take 1 tablet by mouth 2 (two) times daily for 7 days, THEN 2 tablets 2 (two) times daily for 7 days, THEN 3 tablets 2 (two) times daily for 7 days. [facility] lacosamide (VIMPAT) 50 mg tablet 2023-0 10-24 00:00: 00 11-15 04:59 :00 Yes [id number] Take 1 tablet by mouth 2 (two) times daily for 7 days, THEN 2 tablets 2 (two) times daily for 7 days, THEN 3 tablets 2 (two) times daily for 7 days. [facility] lacosamide (VIMPAT) 50 mg tablet 10-24 00:00: 00 10-24 00:00 :00 No [id number] Take 1 tablet by mouth 2 (two) times daily for 7 days, THEN 2 tablets 2 (two) times daily for 7 days, THEN 3 tablets 2 (two) times daily for 7 days, THEN 4 tablets 2 (two) times daily for 90 days. [facility] lacosamide (VIMPAT) 50 mg tablet 10-24 00:00: 00 10-24 00:00 :00 No [id number] Take 1 tablet by mouth 2 (two) times daily for 7 days, THEN 2 tablets 2 (two) times daily for 7 days, THEN 3 tablets 2 (two) times daily for 7 days, THEN 4 tablets 2 (two) times daily for 90 days. [facility] lacosamide (VIMPAT) 50 mg tablet 2023-0 10-24 00:00: 00 10-24 00:00 :00 No [id number] Take 1 tablet by mouth 2 (two) times daily for 7 days, THEN 2 tablets 2 (two) times daily for 7 days, THEN 3 tablets 2 (two) times daily for 7 days, THEN 4 tablets 2 (two) times daily for 90 days. [facility] lacosamide (VIMPAT) 50 mg tablet 10-24 00:00: 00 10-24 00:00 :00 No [id number] Take 1 tablet by mouth 2 (two) times daily for 7 days, THEN 2 tablets 2 (two) times daily for 7 days, THEN 3 tablets 2 (two) times daily for 7 days, THEN 4 tablets 2 (two) times daily for 90 days. [facility] Propranolol HCl 10 MG oral Tablet 10-10 13:54: 53 Yes 10mg Take 1 tablet (10 mg total) by mouth. Destinee salcido busPIRone HCl 10 MG oral Tablet 08-31 00:00: 00 Yes 10mg Take 1 tablet (10 mg total) by mouth 2 times daily. Destinee salcido Butalbital- APAP-Caffei ne 50-300-40 MG oral Capsule 2022-08 00:00: 00 Yes TAKE ONE (1) CAPSULE(S) BY MOUTH EVERY EIGHT HOURS NEEDED. Destinee salcido Levetiracet am 1000 MG oral Tablet 2022-08 00:00: 00 Yes TAKE ONE (1) TABLET (1,000 MG) BY MOUTH EVERY 12 HOURS. Destinee salcido cefdinir (OMNICEF) capsule 300 mg 2021-08 00:30: 00 06-16 00:31 :00 No 300mg 300 mg, Oral, ONCE, 1 dose, On Tue06/15/22 at 1830, CAROLE
Re ason for Anti-Infec tive: Documented Infection< br>Documen roxanne Infection Site: HEENT
D uration of Therapy: 7 days [facility] NaCl 0.9% (NS) bolus infusion 1,000 mL 2021-08 00:15: 00 06-16 00:34 :00 No 1000mL at 999 mL/hr, 1,000 mL, IV Infusion, ONCE, 1 dose, On Tue06/15/22 at 1815, STAT [facility] levETIRAcet am (KEPPRA) in NACL (ISO-OS) 1,000 mg/100 mL RTU 2021-08 22:00: 00 06-15 22:25 :55 No 1000mg 1,000 mg, IV Piggyback, ONCE, 1 dose, On Tue06/15/22 at 1600, Administer over 15 Minutes, 100 mL [facility] acetaminoph en (TYLENOL) tablet 1,000 mg 2021-08 21:30: 00 06-15 21:22 :00 No 1000mg 1,000 mg, Oral, ONCE, 1 dose, On Tue06/15/22 at 1530, CAROLE [facility] levETIRAcet am (KEPPRA) 750 mg tablet 2021-08 00:00: 00 06-30 05:59 :00 No [id number] 750mg Take 1 tablet by mouth in the morning and 1 tablet in the evening. Do all this for 14 days. [facility] cefdinir 300 mg capsule 2021-08 00:00: 00 06-23 05:59 :00 No [id number] 300mg Take 1 capsule by mouth every 12 (twelve) hours for 7 days. [facility] metoclopram antoni HCl (REGLAN) injection 10 mg 2021-08 17:30: 00 05-21 17:19 :00 No 10mg 10 mg, Slow IV Push, ONCE, 1 dose, On Tue05/21/22 at 1230, CAROLE [facility] proMETHazin e (PHENERGAN) 25 mg tablet 11-01 00:00: 00 Yes 25mg Take 1 Tab by mouth every 6 (six) hours as needed for Nausea and Vomiting (headache) . [facility] proMETHazin e (PHENERGAN) 25 mg tablet 11-01 00:00: 00 Yes 25mg Take 1 Tab by mouth every 6 (six) hours as needed for Nausea and Vomiting (headache) . [facility] proMETHazin e (PHENERGAN) 25 mg tablet 11-01 00:00: 00 Yes 25mg Take 1 Tab by mouth every 6 (six) hours as needed for Nausea and Vomiting (headache) . [facility] proMETHazin e (PHENERGAN) 25 mg tablet 11-01 00:00: 00 Yes 25mg Take 1 Tab by mouth every 6 (six) hours as needed for Nausea and Vomiting (headache) . [facility] proMETHazin e (PHENERGAN) 25 mg tablet 11-01 00:00: 00 Yes 25mg Take 1 Tab by mouth every 6 (six) hours as needed for Nausea and Vomiting (headache) . [facility] proMETHazin e (PHENERGAN) 25 mg tablet 11-01 00:00: 00 Yes 25mg Take 1 Tab by mouth every 6 (six) hours as needed for Nausea and Vomiting (headache) . [facility] Immunizations Ordered Immunization Name Filled Immunization Name Date Status Comments Source SARS-COV-2 COVID-19 PFIZER VACCINE 2021-01-09 00:00:[address] [facility] SARS-COV-2 COVID-19 PFIZER VACCINE 2021-01-09 00:00:[address] [facility] SARS-COV-2 COVID-19 PFIZER VACCINE 2020-12-12 00:00:[address] [facility] SARS-COV-2 COVID-19 PFIZER VACCINE 2020-12-12 00:00:[address] [facility] SARS-COV-2 COVID-19 PFIZER VACCINE 2020-12-12 00:00:[address] [facility] SARS-COV-2 COVID-19 PFIZER VACC[address] Unknown Completed [facility] SARS-COV-2 COVID-19 P[address] VACC[address] Unknown Completed [facility] SARS-COV-2 COVID-19 P[address] VACC[address] Unknown Completed [facility] SARS-COV-2 COVID-19 P[address] VACC[address] Unknown Completed [facility] SARS-COV-2 COVID-19 P[address]ZER VACCINE Unknown Completed [facility] SARS-COV-2 COVID-19 P[address]ZER VACCINE Unknown Completed [facility] SARS-COV-2 COVID-19 P[address] VACC[address] Unknown Completed [facility] SARS-COV-2 COVID-19 P[address] VACC[address] Unknown Completed [facility] SARS-COV-2 COVID-19 [address] V[address] Unknown Completed [facility] SARS-COV-2 COVID-[address] Unknown Completed [facility] Vital Signs Vital Name Observation Time Observation Value Alvina toney Systolic blood pressure 2023-10-25 18:19:00 137 mm[Hg] [facility] Diastolic blood pressure 2023-10-25 18:19:00 96 mm[Hg] [facility] Heart rate 2023-10-25 18:19:00 89 /min [facility] Respiratory rate 2023-10-25 18:19:00 16 /min [facility] Oxygen saturation in Arterial blood by Pulse oximetry 2023-10-25 18:19:00 100 /min [facility] Body height 2023-10-25 18:18:00 160 cm [facility] Body weight 2023-10-25 18:18:00 85.276 kg [facility] BMI 2023-10-25 18:18:00 33.30 kg/m2 [facility] Systolic blood pressure 2023-10-11 19:49:00 134 mm[Hg] Destinee Seybo ld - External Diastolic blood pressure 2023-10-11 19:49:00 82 mm[Hg] Destinee Seybo ld - External Heart rate 2023-10-11 19:49:00 120 /min Kelse y Seybold - External Body temperature 2023-10-11 19:49:00 36.83 [place] Destinee Seybold - External Respiratory rate 2023-10-11 19:49:00 18 /min Destinee Seybold - External Body height 2023-10-11 19:49:00 162.6 cm Genevieve ey Seybold - External Body weight 2023-10-11 19:49:00 85.787 kg Genevieve ey Seybold - External BMI 2023-10-11 19:49:00 32.46 kg/m2 Genevieve ey Seybold - External Oxygen saturation in Arterial blood by Pulse oximetry 2023-10-11 19:49:00 100 /min Destinee Seybo ld - External Systolic blood pressure 2022-06-15 23:38:00 128 mm[Hg] [facility] Diastolic blood pressure 2022-06-15 23:38:00 86 mm[Hg] [facility] Heart rate 2022-06-15 23:38:00 63 /min [facility] Respiratory rate 2022-06-15 23:38:00 15 /min [facility] Oxygen saturation in Arterial blood by Pulse oximetry 2022-06-15 23:38:00 100 /min [facility] Body temperature 2022-06-15 20:33:[address] [place] [facility] Body height 2022-06-15 20:33:00 160 cm [facility] Body weight 2022-06-15 20:33:00 71.668 kg [facility] BMI 2022-06-15 20:33:00 27.99 kg/m2 [facility] Systolic blood pressure 2022-05-21 17:30:00 117 mm[Hg] [facility] Diastolic blood pressure 2022-05-21 17:30:00 71 mm[Hg] [facility] Heart rate 2022-05-21 17:30:00 63 /min [facility] Respiratory rate 2022-05-21 17:30:00 10 /min [facility] Oxygen saturation in Arterial blood by Pulse oximetry 2022-05-21 17:30:00 100 /min [facility] Body temperature 2022-05-21 16:55:[address] [place] [facility] Body height 2022-05-21 16:50:00 160 cm [facility] Body weight 2022-05-21 16:50:00 72.576 kg [facility] BMI 2022-05-21 16:50:00 28.34 kg/m2 [facility] Procedures Procedure Date / Time Performed Performing Clinician Source CONSENT/REFUSAL FOR DIAGNOSIS AND TREATMENT 2023-10-25 18:03:16 Doctor Unassigned, [place] [facility] POCT TEST 2022-06-15 23:18:[address] [facility] URINE DRUG (IMMUNOASSAY) - COMPREHENSIVE DRUG SCREEN 2022-06-15 23:17:[address] [facility] URINALYSIS 2022-06-15 23:15:00 Lupe Brenner [facility] CT CERVICAL SPINE WO CONTRAST 2022-06-15 21:46:[address] [facility] CT HEAD WO CONTRAST 2022-06-15 21:46:[address] [facility] COMP. METABOLIC PANEL ([id number]) 2022-06-15 21:04:[address] [facility] CBC WITH DIFF 2022-06-15 21:04:00 Lupe Brenner [facility] NOTICE OF PRIVACY PRACTICES 2022-05-21 17:32:32 Doctor Unassigned, [place] [facility] CONSENT/REFUSAL FOR DIAGNOSIS AND TREATMENT 2022-05-21 17:31:00 Doctor Unassigned, [place] [facility] MAGNESIUM 2022-05-21 16:53:00 Deo Sheldon [facility] TEST, SERUM 2022-05-21 16:53:[address] [facility] COMP. METABOLIC PANEL ([id number]) 2022-05-21 16:53:[address] [facility] CBC WITH DIFF 2022-05-21 16:53:00 Deo Sheldon [facility] SARS-COV-2 COVID-19 VACCINE,0.3ML,IM (PFIZER) 2020-12-12 14:31:35 Doctor Unassigned, [place] [facility] Plan of Care Planned Activity Planned Date Details Comments Source Future Scheduled Test 2021-04-08 00:00:00 INFLUENZA VACCINE (Season Ended) [code = INFLUENZA VACCINE (Season Ended)] [facility] Future Scheduled Test 2021-01-02 00:00:00 SARS-CoV-2 (COVID-19) Vaccine (2 - Pfizer 2-dose series) [code = SARS-CoV-2 (COVID-19) Vaccine (2 - Pfizer 2-dose series)] [facility] Future Scheduled Test 2005 00:00:00 Screening for malignant neoplasm of cervix (procedure) [code = 399144980] [facility] Future Scheduled Test 2003 00:00:00 DTaP,Tdap,and Td Vaccines (1 - Tdap) [code = DTaP,Tdap,and Td Vaccines (1 - Tdap)] [facility] Scheduled Test 2002 00:00:00 Hepatitis C screening (procedure) [code = 167699410] [facility] Scheduled Test 1996 00:00:00 Depression screening (procedure) [code = 933146001] [facility] Scheduled Test 1985 00:00:00 VARICELLA VACCINES (1 of 2 - 2-dose childhood series) [code = VARICELLA VACCINES (1 of 2 - 2-dose childhood series)] [facility] Medication 2023-11-14 00:00:00 Lacosamide (VIMPAT) 200 mg tablet [code = 129657] [facility] Medication 2023-11-14 00:00:00 Lacosamide (VIMPAT) 200 mg tablet [code = 696212] [facility] Medication 2023-11-14 00:00:00 Lacosamide (VIMPAT) 200 mg tablet [code = 077933] [facility] Medication 2023-11-14 00:00:00 Lacosamide (VIMPAT) 200 mg tablet [code = 141280] [facility] Encounters Start Date/Time End Date/Time Encounter Type Admission Type Attending [facility] Facility Care Department Encounter ID Source 2024-04-26 13:30:00 2024-04-26 13:30:00 Outpatient DARREL QUINN DIOSELY [facility] [id number] [facility] 2024-01-26 14:00:00 2024-01-26 14:00:00 Outpatient [facility]UMANN [id number] [facility] 14:00:00 2023-12-13 14:00:00 Outpatient JAI PETERSON [id number] [facility] 2023-11-11 14:00:00 2023-11-11 14:00:00 Outpatient NAVEED ALVAREZ [id number] [facility] 2023-11-03 00:00:00 2023-11-03 00:00:00 [facility] [id number] [facility] 2023-10-25 13:00:00 2023-10-25 14:00:00 Office Visit Darrel Bird [facility] [id number] [facility] 2023-10-25 13:00:00 2023-10-25 13:00:00 [facility] [id number] [facility] 2023-10-25 00:00:00 2023-10-25 00:00:00 Orders Only Doctor Unassigned, [place] [facility] [id number] [facility] 2023-10-18 00:00:00 2023-10-18 00:00:00 Outpatient NAVEED ALVAREZ [id number] [facility] 2023-10-18 00:00:00 2023-10-18 00:00:00 Outpatient MD DESTINEE MOSLEY [id number] [facility] 2023-10-14 00:00:00 2023-10-14 00:00:00 Outpatient NAVEED ALVAREZ [id number] [facility] 2023-10-14 00:00:00 2023-10-14 00:00:00 Outpatient NAVEED ALVAREZ [id number] [facility] 2023-10-14 00:00:00 2023-10-14 00:00:00 Outpatient ZULEIKA BARRERA [id number] [facility]23-[facility]-14 00:00:00 2023-10-14 00:00:00 Outpatient NAVEED ALVAREZ [id number] [facility] 2023-10-11 14:50:00 2023-10-11 14:50:00 Outpatient LAB90 DESTINEE DESTINEE [id number] [facility] 2023-10-11 14:00:00 2023-10-11 14:00:00 Outpatient NAVEED ALVAREZ DESTINEE [id number] [facility] 2023-06-07 00:00:00 2023-06-07 00:00:00 Outpatient GC_GCBZW_Ka diyala_S [facility] [id number] [facility] 2022-06-15 14:32:00 2022-06-15 18:36:00 Emergency Lupe Brenner [facility] [id number] [id number] [id number] [id number] [facility] 2022-06-15 14:32:00 2022-06-15 18:36:00 Emergency X Lupe BRENNER [facility] ERT [id number] [facility] 2022-05-21 11:48:00 2022-05-21 13:06:00 Emergency X DEO SHELDON [facility] ERT [id number] [facility] 2022-05-21 11:48:00 2022-05-21 13:06:00 Emergency Deo Sheldon [facility] [id number] [id number] [id number] [facility] 2022-05-21 11:48:00 2022-05-21 13:06:00 Emergency X DEO SHELDON [facility] ERT [id number] [facility] Results Test Description Test Time Test Comments Results Result Co mments Source [facility] ([id number][facility]2022-06-15 21:31:27* Test Item Value Reference Range Interpretation Comme nts NA (test code = 0876337920) 139 mmol/L 135-145 K (test code = 7987497964) 3.7 mmol/L 3.5-5.0 CL (test code = 1796333666) 107 mmol/L 98-108 CO2 TOTAL (test code = 5332581867) 25 mmol/L 23-31 AGAP (test code = 8864171537) 2-16 BUN (test code = 1170591820) 6 mg/dL 7-23 L GLUCOSE (test code = 8272709835) 89 mg/dL 70-110 CREATININE (test code = 3222801105) 0.71 mg/dL 0.50-1.04 TOTAL BILI (test code = 3623794309) 0.4 mg/dL 0.1-1.1 CALCIUM (test code = 8780960138) 8.9 mg/dL 8.6-10.6 T PROTEIN (test code = 3802540373) 7.3 g/dL 6.3-8.2 ALBUMIN (test code = 5309134080) 4.4 g/dL 3.5-5.0 ALK PHOS (test code = 8575772019) 67 U/L 34-122 ALTv (test code = 1742-6) 52 U/L 5-35 H AST(SGOT) (test code = 9536170249) 32 U/L 13-40 eGFR (test code = 8958963508) mL/min/1.73m2 MARKEL (test code = MARKEL) Association [...] imaging tests). Lab Interpretation (test code = 12670-9) Abnormal [facility] WITH [id number] 21:16:48* Test Item Value Reference Range Interpretation Comme nts WBC (test code = 6690-2) See_Comment [Automated [employer]-Vibes] The system which generated this result transmitted reference range: 4.30 - 11.10 10*3/?L. The reference range was not used to interpret this result as normal/abnormal. RBC (test code = 789-8) See_Comment [Automated [employer]Vibes] The system which generated this result transmitted [...] 34.4 g/dL 31.6-35.1 RDW-SD (test code = 36111-3) 47.8 fL 39.0-49.9 RDW-CV (test code = 788-0) 15.2 % 12.0-15.5 PLT (test code = 777-3) See_Comment [Automated [employer]Vibes] The system which generated this result transmitted reference range: 166 - 358 10*3/?L. The reference range was not used to interpret this result as normal/abnormal. MPV (test code = 40883-7) 11.0 fL 9.5-12.9 NRBC/100 WBC (test code = 1522355926) See_Comment [Automated me ssage] The system which generated this result transmitted reference range: 0.0 - 10.0 /100 WBCs. The reference range was not used to interpret this result as normal/abnormal. NRBC x10^3 (test code = 9437742109) See_Comment [Automated messa ge] The system which generated this result transmitted reference range: 10*3/?L. The reference range was not used to interpret this result as normal/abnormal. GRAN MAT (NEUT) % (test code = 770-8) 50.4 % IMM GRAN % (test code = 8049711215) 0.20 % LYMPH % (test code = 736-9) 40.0 % MONO % (test code = 5905-5) 6.8 % EOS % (test code = 713-8) 2.3 % BASO % (test code = 706-2) 0.3 % GRAN MAT x10^3(ANC) (test code = 3556974823) 3.26 10*3/uL 1.88-7.09 IMM GRAN x10^3 (test code = 4160088237) 0.00-0.06 LYMPH x10^3 (test code = 731-0) 2.59 10*3/uL 1.32-3.29 MONO x10^3 (test code = 742-7) 0.44 10*3/uL 0.33-0.92 EOS x10^3 (test code = 711-2) 0.15 10*3/uL 0.03-0.39 BASO x10^3 (test code = 704-7) 0.01-0.07 Lab Interpretation (test code = 37269-4) Abnormal [facility] Notes Date/Time Note Provider Source 2023-10-11 13:54:55 [id number] [id number]/[id number] T13:54:55 Chief [facility]. Her seizures are getting worse.Briseyda Sanchez, LVN [id number] [id number]:55:09Nurse [id number]. [id number] for patient [id number] NoteLNNARRATIVEFormatted C-CDA narrative [facility] [facility].[id number] 2.3.15|[id number]. [id number] [facility]"
[2023-11-06] MEDS ORDERED: NA CHLORIDE 0.9% 1,000 ML ONE (14:20)
[2023-11-06] MEDS ORDERED: LEVETIRACETAM 500 MG/5 ML VIAL IV ONE (14:20)
[2023-11-06] MEDS ORDERED: NA CHLORIDE 0.9% 100 ML ONE (14:20)
[2023-11-06] MEDS ORDERED: KETOROLAC 30 MG/ML INJ ONE (14:35)
[2023-11-06] MEDS ORDERED: METOCLOPRAMIDE 10 MG/2mL INJ ONE (14:35)
[2023-11-06] MEDS ORDERED: DIPHENHYDRAMINE 50 MG/ML VIAL ONE (14:35)
--- NOTE | 2023-11-06 15:06 | ER ---
Nurse's Notes [facility] Name: Taisha Gavin Age: 38 yrs Sex: Female : 1985 Arrival Date: 11/06/2023 Time: 14:09 Bed 18 Private MD: Diagnosis: seizure due to noncompliance with medication Presentation: 11/05 14:15 Chief complaint: EMS states: called out for seizures. pt has a history of seizures and as6 had one today in her car. pt reports no injury and now c/o headache. Coronavirus screen: At this time, the client does not indicate any symptoms associated with coronavirus-19. Ebola Screen: No symptoms or risks identified at this time. Initial Sepsis Screen: Does the patient meet any 2 criteria? No. Patient's initial sepsis screen is negative. Does the patient have a suspected source of infection? No. Patient's initial sepsis screen is negative. Risk Assessment: Do you want to hurt yourself or someone else? Patient reports no desire to harm self or others. Onset of symptoms was November 06, 2023. 14:15 Method Of Arrival: EMS: [facility] as6 14:15 Acuity: CRISTHIAN 2 as6 Triage Assessment: 14:12 General: Appears in no apparent distress. Behavior is calm, cooperative, drowsy. Pain: as6 Complains of pain in head. 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 - Social history:: Smoking status: Patient denies any tobacco usage or history of. Screenin:17 Abuse screen: Denies threats or abuse. Denies injuries from another. Nutritional as6 screening: No deficits noted. Tuberculosis screening: No symptoms or risk factors identified. 14:27 [facility] ED Fall Risk Assessment (Adult) History of falling in the last 3 months, mb9 including since admission Yes- single mechanical fall (1 pt) Confusion or Disorientation No (0 pts) Intoxicated or Sedated No (0 pts) Impaired Gait No (0 pts) Mobility Assist Device Used No (0 pt) Altered Elimination No (0 pt) Score/Fall Risk Level 0 - 2 = Low Risk Oriented to surroundings, Maintained a safe environment, Educated pt \T\ family on fall prevention, incl call for assistance when getting out of bed. Assessment: 14:27 General: Appears uncomfortable, Behavior is calm, cooperative. Pain: Denies pain. mb9 Neuro: Hale Agitation-Sedation Scale (RASS): 0 - Alert and Calm Level of Consciousness is awake, alert, obeys commands, Oriented to person, place, time, situation, Appropriate for age. Cardiovascular: Heart tones S1 S2 present Patient's skin is warm and dry. Respiratory: Airway is patent Respiratory effort is even, unlabored, Respiratory pattern is regular, symmetrical. GI: Abdomen is flat, non-distended. : No signs and/or symptoms were reported regarding the genitourinary system. EENT: No signs and/or symptoms were reported regarding the EENT system. Derm: Skin is pink, warm \T\ dry. Musculoskeletal: Range of motion: intact in all extremities. 15:13 Reassessment: Patient and/or family updated on plan of care and expected duration. Pain mb9 level reassessed. Patient is alert, oriented x 3, equal unlabored respirations, skin warm/dry/pink. Patient states feeling better. Patient states symptoms have improved. Vital Signs: 14:12 BP 140 / 84; Pulse 123; Resp 16 S; Temp 98; Pulse Ox 97% on R/A; Weight 84.82 kg (R); as6 Height 5 ft. 2 in. (R); Pain 10/10; 15:13 BP 141 / 71; Pulse 78; Resp 16; Pulse Ox 100% on R/A; mb9 14:12 Body Mass Index 34.20 (84.82 kg, 157.48 cm) as6 14:12 Pain Scale: Adult as6 ED Course: 14:12 Patient arrived in ED. as6 14:12 Arm band placed on. as6 14:14 [facility] sb[facility] 14:14 Marguerite Ricci MD is Attending Physician. sb4 14:17 Triage completed. as6 14:17 Bed in low position. Call light in reach. Side rails up X2. Client placed on continuous as6 cardiac and pulse oximetry monitoring. NIBP monitoring applied. playground monitor on. 14:17 Maintain EMS IV. Dressing intact. Good blood return noted. Site clean \T\ dry. Gauge \T\ as 6 site: 20g LAC. 14:19 Catalina Navas, BALWINDER is Primary Nurse. mb9 14:27 No provider procedures requiring assistance completed. mb9 15:06 Abrahan Ruano MD is Referral Physician. sb4 15:13 IV discontinued, intact, bleeding controlled, No redness/swelling at site. Pressure mb9 dressing applied. Administered Medications: 14:26 Drug: NS 0.9% IV 1000 ml IV at 1 bolus Per protocol; 1000 mL bolus Route: IV; Rate: 1 mb9 bolus; Site: left antecubital; 15:14 Follow up: Response: No adverse reaction; IV Status: Completed infusion mb9 14:26 Drug: Keppra IV 1000 mg IV at calculated rate once Route: IV; Rate: calculated rate; mb9 Site: left antecubital; 15:14 Follow up: Response: No adverse reaction; IV Status: Completed infusion mb9 14:33 Drug: Ketorolac IVP 15 mg IVP once Route: IVP; Site: left antecubital; mb9 15:14 Follow up: Response: No adverse reaction mb9 14:35 Drug: diphenhydrAMINE IVP 25 mg IVP once Route: IVP; Site: left antecubital; mb9 15:14 Follow up: Response: No adverse reaction mb9 14:38 Drug: metoCLOPramide IVP 10 mg IVP once; over 1 to 2 minutes Route: IVP; Site: left mb9 antecubital; 15:14 Follow up: Response: No adverse reaction mb9 Medication: 14:17 VIS not applicable for this client. as6 Outcome: 15:06 Discharge ordered by . sb4 15:14 Discharged to home via wheelchair, with family, mb9 15:14 Condition: stable 15:14 Discharge instructions given to patient, family, Instructed on discharge instructions, follow up and referral plans. Demonstrated understanding of instructions, follow-up care, 15:18 Patient left the ED. mb9 Signatures: Israel Elizalde RN RN as6 Carol Spaulding, PA-C PA-C sb4 Catalina Navas, RN RN mb9
--- NOTE | 2023-11-06 15:06 | EDPHYS ---
Physician Documentation [facility] Name: Taisha Gavin Age: 38 yrs Sex: Female : 1985 Arrival Date: 11/06/2023 Time: 14:09 Bed 18 Private MD: ED Physician Marguerite Ricci HPI: 11/06 08:56 This 38 yrs old Black Female presents to ER via EMS with complaints of Seizure. sb4 08:56 Patient states that she was in her parked car in the driveway when she allegedly had a sb4 seizure. She has a history of epilepsy, has not taken her Keppra in a week due to the cost. Her son is the one who called EMS. She is complaining of headache but has no other complaints at this time. 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 - Social history:: Smoking status: Patient denies any tobacco usage or history of. ROS: 11/06 08:56 Constitutional: Negative for fever, chills, and weight loss, sb4 09:07 Neuro: Positive for headache, seizure activity, sb4 09:07 All other systems are negative, Exam: 09:07 Constitutional: This is a well developed, well nourished patient who is awake, alert, sb4 and in no acute distress. Head/Face: Normocephalic, atraumatic. Eyes: Extra-ocular motions intact. Periorbital areas with no swelling, redness, or edema. ENT: Mucous membranes moist. Cardiovascular: Regular rate and rhythm with a normal S1 and S2. Respiratory: Lungs have equal breath sounds bilaterally, clear to auscultation and percussion. No rales, rhonchi or wheezes noted. No increased work of breathing, no retractions or nasal flaring. Abdomen/GI: Soft, non-tender, no distension. Skin: Warm, dry with normal turgor. Normal color with no rashes, no lesions, and no evidence of cellulitis. MS/ Extremity: Pulses equal, no cyanosis. Neurovascular intact. Full, normal range of motion. Neuro: Awake and alert, GCS 15, oriented to person, place, time, and situation. Motor strength 5/5 in all extremities. Sensory grossly intact. Vital Signs: 11/05 14:12 BP 140 / 84; Pulse 123; Resp 16 S; Temp 98; Pulse Ox 97% on R/A; Weight 84.82 kg (R); as6 Height 5 ft. 2 in. (R); Pain 10/10; 15:13 BP 141 / 71; Pulse 78; Resp 16; Pulse Ox 100% on R/A; mb9 14:12 Body Mass Index 34.20 (84.82 kg, 157.48 cm) as6 14:12 Pain Scale: Adult as6 MDM: 14:14 Patient medically screened. sb4 11/06 09:07 Data reviewed: vital signs, nurses notes, EMS record, and as a result, I will discharge sb4 patient. Counseling: I had a detailed discussion with the patient and/or guardian regarding the historical points, exam findings, and any diagnostic results supporting the discharge/admit diagnosis, the need for outpatient follow up, a neurologist, to return to the emergency department if symptoms worsen or persist or if there are any questions or concerns that arise at home. ED course: Provided patient good Rx prescription card and instructed to her to abstain from driving with her diagnosis of epilepsy. 11/05 14:16 Order name: IV Start; Complete Time: 14:17 sb4 Administered Medications: 11/05 14:26 Drug: NS 0.9% IV 1000 ml IV at 1 bolus Per protocol; 1000 mL bolus Route: IV; Rate: 1 mb9 bolus; Site: left antecubital; 15:14 Follow up: Response: No adverse reaction; IV Status: Completed infusion mb9 14:26 Drug: Keppra IV 1000 mg IV at calculated rate once Route: IV; Rate: calculated rate; mb9 Site: left antecubital; 15:14 Follow up: Response: No adverse reaction; IV Status: Completed infusion mb9 14:33 Drug: Ketorolac IVP 15 mg IVP once Route: IVP; Site: left antecubital; mb9 15:14 Follow up: Response: No adverse reaction mb9 14:35 Drug: diphenhydrAMINE IVP 25 mg IVP once Route: IVP; Site: left antecubital; mb9 15:14 Follow up: Response: No adverse reaction mb9 14:38 Drug: metoCLOPramide IVP 10 mg IVP once; over 1 to 2 minutes Route: IVP; Site: left mb9 antecubital; 15:14 Follow up: Response: No adverse reaction mb9 Disposition Summary: 11/06/23 15:06 Discharge Ordered Notes: Location: Home sb4 Problem: an acute exacerbation sb4 Symptoms: have improved sb4 Condition: Stable sb4 Diagnosis - seizure due to noncompliance with medication sb4 Followup: sb4 - With: Abrahan Ruano MD - When: 2 - 3 days - Reason: Recheck today's complaints, Re-evaluation by your physician Discharge Instructions: - Discharge Summary Sheet sb4 - Epilepsy, [id number] sb4 Forms: - Thank You Letter sb4 - Patient Portal Instructions sb4 - Leadership Thank You Letter sb4 Signatures: Israel Elizalde, RN RN as6 Carol Spaulding, PA-C PA-C sb4 Catalina Navas RN RN mb9
[2023-11-06 18:18] VITALS: BP 141/71; TEMP 98; O2SAT 100
== END 2023-11-06 15:18 | disposition home or self-care (01) ==
LOC: ER 14:09
DX: G40.509 Epileptic seizures related to external causes, not intractable, without status epilepticus (principal); Z91.141 Patient's other noncompliance with medication regimen due to financial hardship; Z88.0 Allergy status to penicillin; Z88.5 Allergy status to narcotic agent; Z88.8 Allergy status to other drugs, medicaments and biological substances
CPT/HCPCS: 96365; 96375; 99284; J1953; J2765; J1200; J7030

== ENCOUNTER 2024-08-24 11:21 | Emergency (ER) | payer OTHER, SELFPAY ==
--- OUTSIDE RECORDS SUMMARY | 2024-08-24 11:26 | XMS REPORT | Continuity of Care Document ---
Author Name Unknown Address [address] [facility] [address] [place] [address] [facility] thconnect Address [address] [facility]. [address] [place] [address] Care Team Providers Care Drum Sealer Name Role Phone Arya Artis Jr. Primary Care Physician + [phone] DARREL BIRD Attending Clinician DARREL Gates Attending Clinician Darrel Gates MD Attending Clinician [phone] Doctor Unassigned, Barlow Attending Clinician U GAVIOTA Zazueta Attending Clinician Unavailable SAMMIE WAYNE Attending Clinician Unavailable SAMMIE WAYNE Attending Clinician Unavailable NEO MANCERA Attending Clinician Unavailable Doctor Unassigned, Barlow Attending Clinician U zoe LANTIGUA, Yadi Attending Clinician [phone] NAVEED ALVAREZ Attending Clinician Unavailab JAI Finch Attending Clinician Unavailab snehal Jaimes [facility] Attending Clinician Unavailable MD OLGA Attending Clinician Unavailab ZULEIKA Luong Attending Clinician Unavailabl e LAB90 Attending Clinician Unavailable [email or web address] Attending Clinician Unavaila Lupe Mendes Attending Clinician [phone] Lupe BRENNER Attending Clinician Unavailable DEO SHELDON Attending Clinician Unavailable Deo Sheldon MD Attending Clinician [phone] Nurse, Adc Pob Immunization Attending Clinician Unavailable Bakari Coats DO Attending Clinician [phone] DARREL BIRD Admitting Clinician Unavailjuliet e [email or web address]_S Admitting Clinician Unavaila Lupe Miranda Admitting Clinician Unavailable Payers Payer Name Policy Type Policy Number Effective Date Expirati on Date Source LOULOU KHALIL [id number] 2023 00:00:00 [facility] PORFIRIO MEDELLIN COPAY FOCUS 9 [id number] 2023 00:00:00 [facility] [id number] 2023 00:00:00 Problems Condition Name Condition Details Condition Category Status Onset Date Resolution Date Last Treatment Date Treating Clinician Comments Source Seizures (multi HCC) Seizures (multi HCC) Disease Active 3-05 00:00: 00 Destinee salcido No known active problems No known active problems Disease [facility] Allergies, Adverse Reactions, Alerts Allergy Name Allergy Type Status Severity Reaction(s) Onset Date Inactive Date Treating Clinician Comments Source LACOSAMI DE DRUG INGREDI Active Unknown-Cmnt 01-30 00:00: 00 [facility] Lacosami de Propensi ty to adverse reaction s Active Unknown - See comments 01-30 00:00: 00 Patient sent a message that she had an allergic reaction to Vimpat. I did not see the patient. Advised her to stop taking the medicatio n. [facility] Codeine Propensi ty to adverse reaction s Active Itching 2021-08 0-14 00:00: 00 [facility] Furosemi de Propensi ty to adverse reaction s Active Itching 2021-08 0-14 00:00: 00 [facility] CODEINE DRUG INGREDI Active ITCHING 2021-08 0-14 00:00: 00 [facility] FUROSEMI DE DRUG INGREDI Active ITCHING 2021-08 0-14 00:00: 00 [facility] Codeine Propensi ty to adverse reaction s Active Rash 11-01 00:00: 00 [facility] Furosemi de Propensi ty to adverse reaction s Active Hives 11-01 00:00: 00 [facility] CODEINE DRUG INGREDI Active Rash 11-01 00:00: 00 [facility] FUROSEMI DE DRUG INGREDI Active Hives 11-01 00:00: 00 [facility] Codeine Propensi ty to adverse reaction s Active Hives 10-18 00:00: 00 Destinee salcido Furosemi de Sodium Propensi ty to adverse reaction s Active Itching 10-18 00:00: 00 Destinee salcido Social History Social Habit Start Date Stop Date Quantity Comments Source [facility] intake 2024-08-07 00:00:00 2024-08-07 00:00:00 Ex-drinker (finding) [facility] History of Social function 2024-08-07 00:00:00 2024-08-07 00:00:00 [facility] Tobacco use and exposure 2023-10-25 00:00:00 2023-10-25 00:00:00 Smokeless tobacco non-user [facility] Alcohol intake 2023-10-25 00:00:00 2023-10-25 00:00:00 Ex-drinker (finding) [facility] Exposure to SARS-CoV-2 (event) 2022-06-05 00:00:00 2022-06-15 14:33:00 Not sure [facility] Sex Assigned At 1985 00:00:00 1985 00:00:00 Ihsan Felipe Seybold - External Smoking Status Start Date Stop Date Source Tobacco smoking consumption unknown [facility] Never smoked tobacco [facility] Medications Ordered Medication Name Filled Medication Name Start Date Stop Date Current Medication? Ordering Clinician Indication Dosage Frequency Signature (SIG) Comments Components Source topiramate 100 mg tablet 2023-08 00:00: 00 Yes [id number] 100mg Take 1 tablet by mouth in the morning and 1 tablet in the evening. [facility] levETIRAcet am 1,000 mg tablet 2023-08 00:00: 00 Yes [id number] 1000mg Take 1 tablet by mouth in the morning and 1 tablet in the evening. [facility] levETIRAcet am 1,000 mg tablet 05-07 00:00: 00 Yes [id number] 1000mg Take 1 tablet by mouth in the morning and 1 tablet in the evening. [facility] zonisamide 100 mg capsule 05-07 00:00: 00 08-07 00:00 :00 No [id number] Take 1 tab BID [facility] zonisamide 100 mg capsule 01-30 00:00: 00 05-07 00:00 :00 No [id number] 100mg Take 1 capsule by mouth in the morning. [facility] gadoteridol (PROHANCE-2 0 mL) injection 0.2 mL/kg 01-04 21:45: 00 01-04 21:33 :00 No [id number] .2mL/kg 0.2 mL/kg, Intravenou s, ONCE, 1 dose, On Trena 01/05/24 at 1645, Routine [facility] Lacosamide (VIMPAT) 200 mg tablet 12-26 00:00: 00 01-30 00:00 :00 No [id number] 200mg Take 1 tablet by mouth in the morning and 1 tablet in the evening. [facility] Lacosamide (VIMPAT) 200 mg tablet 11-13 00:00: 00 12-22 00:00 :00 No [id number] 200mg Take 1 tablet by mouth in the morning and 1 tablet in the evening. Do all this for 90 days. [facility] busPIRone 10 mg tablet 10-24 13:18: 22 Yes 10mg Take 1 tablet by mouth in the morning and 1 tablet in the evening. [facility] acetaminoph en-caff-but albital per capsule 10-24 13:18: 22 Yes 1{capsu le} Take 1 capsule by mouth every 4 (four) hours as needed for Headache. [facility] levETIRAcet am 1,000 mg tablet 10-24 13:18: 22 05-07 00:00 :00 No 1000mg Take 1 tablet by mouth in the morning and 1 tablet in the evening. [facility] lacosamide (VIMPAT) 50 mg tablet 10-24 00:00: 00 10-24 00:00 :00 No [id number] Take 1 tablet by mouth 2 (two) times daily for 7 days, THEN 2 tablets 2 (two) times daily for 7 days, THEN 3 tablets 2 (two) times daily for 7 days, THEN 4 tablets 2 (two) times daily for 90 days. [facility] Propranolol HCl 10 MG oral Tablet [...] HEENT
D uration of Therapy: 7 days [facility] NaCl 0.9% (NS) bolus infusion 1,000 mL 2021-08 00:15: 00 06-16 00:34 :00 No 1000mL at 999 mL/hr, 1,000 mL, IV Infusion, ONCE, 1 dose, On Tue06/15/22 at 1815, STAT [facility] levETIRAcet am (KEPPRA) in NACL (ISO-OS) 1,000 mg/100 mL RTU 2021-08 22:00: 00 06-15 22:25 :55 No 1000mg 1,000 mg, IV Piggyback, ONCE, 1 dose, On Tue06/15/22 at 1600, Administer over 15 Minutes, 100 mL [facility] acetaminoph en (TYLENOL) tablet 1,000 mg 2021-08 21:30: 00 06-15 21:22 :00 No 1000mg 1,000 mg, Oral, ONCE, 1 dose, On Tue06/15/22 at 1530, CAROLE [facility] levETIRAcet am (KEPPRA) 750 mg tablet 2021-08 00:00: 00 06-30 05:59 :00 No [id number] 750mg Take 1 tablet by mouth in the morning and 1 tablet in the evening. Do all this for 14 days. [facility] cefdinir 300 mg capsule 2021-08 00:00: 00 06-23 05:59 :00 No [id number] 300mg Take 1 capsule by mouth every 12 (twelve) hours for 7 days. [facility] metoclopram antoni HCl (REGLAN) injection 10 mg 2021-08 17:30: 00 05-21 17:19 :00 No 10mg 10 mg, Slow IV Push, ONCE, 1 dose, On Tue05/21/22 at 1230, [facility] proMETHazin e (PHENERGAN) 25 mg tablet 11-01 00:00: 00 Yes 25mg Take 1 Tab by mouth every 6 (six) hours as needed for Nausea and Vomiting (headache) . [facility] Immunizations Ordered Immunization Name Filled Immunization Name Date Status Comments Source SARS-COV-2 COVID-19 PFIZER VACCINE 2021-01-09 00:00:00 Completed [facility] SARS-COV-2 COVID-19 PFIZER VACCINE 2021-01-09 00:00:00 Completed [facility] SARS-COV-2 COVID-19 PFIZER VACCINE 2021-01-09 00:00:00 Completed [facility] SARS-COV-2 COVID-19 PFIZER VACCINE 2021-01-09 00:00:00 Completed [facility] SARS-COV-2 COVID-19 PFIZER VACCINE 2020-12-12 00:00:00 Completed [facility] SARS-COV-2 COVID-19 PFIZER VACCINE 2020-12-12 00:00:00 Completed [facility] SARS-COV-2 COVID-19 PFIZER VACCINE 2020-12-12 00:00:00 Completed [facility] SARS-COV-2 COVID-19 PFIZER VACCINE 2020-12-12 00:00:00 Completed [facility] SARS-COV-2 COVID-19 PFIZER VACCINE 2020-12-12 00:00:00 Completed [facility] SARS-COV-2 COVID-19 PFIZER VACCINE Unknown Completed [facility] SARS-COV-2 COVID-19 PFIZER VACCINE Unknown Completed [facility] SARS-COV-2 COVID-19 PFIZER VACCINE Unknown Completed [facility] SARS-COV-2 COVID-19 PFIZER VACCINE Unknown Completed [facility] SARS-COV-2 COVID-19 PFIZER VACCINE Unknown Completed [facility] SARS-COV-2 COVID-19 PFIZER VACCINE Unknown Completed [facility] SARS-COV-2 COVID-19 PFIZER VACCINE Unknown Completed [facility] SARS-COV-2 COVID-19 PFIZER VACCINE Unknown Completed [facility] SARS-COV-2 COVID-19 PFIZER VACCINE Unknown Completed [facility] SARS-COV-2 COVID-19 PFIZER VACCINE Unknown Completed [facility] SARS-COV-2 COVID-19 PFIZER VACCINE Unknown Completed [facility] SARS-COV-2 COVID-19 PFIZER VACCINE Unknown Completed [facility] SARS-COV-2 COVID-19 PFIZER VACCINE Unknown Completed [facility] Vital Signs Vital Name Observation Time Observation Value Comments S ource Systolic blood pressure 2024-08-07 19:22:00 132 mm[Hg] [facility] Diastolic blood pressure 2024-08-07 19:22:00 81 mm[Hg] [facility] Heart rate 2024-08-07 19:19:00 93 /min [facility] Body height 2024-08-07 19:19:00 160 cm [facility] Body weight 2024-08-07 19:19:00 85.866 kg [facility] BMI 2024-08-07 19:19:00 33.53 kg/m2 [facility] Oxygen saturation in Arterial blood by Pulse oximetry 2024-08-07 19:19:00 98 /min [facility] Systolic blood pressure 2024-05-07 13:29:00 140 mm[Hg] [facility] Diastolic blood pressure 2024-05-07 13:29:00 92 mm[Hg] [facility] Heart rate 2024-05-07 13:29:00 82 /min [facility] Respiratory rate 2024-05-07 13:29:00 16 /min [facility] Oxygen saturation in Arterial blood by Pulse oximetry 2024-05-07 13:29:00 99 /min [facility] Body height 2024-05-07 13:28:00 160 cm [facility] Systolic blood pressure 2023-10-25 18:19:00 137 mm[Hg] [facility] Diastolic blood pressure 2023-10-25 18:19:00 96 mm[Hg] [facility] Heart rate 2023-10-25 18:19:00 89 /min [facility] Respiratory rate 2023-10-25 18:19:00 16 /min [facility] Oxygen saturation in Arterial blood by Pulse oximetry 2023-10-25 18:19:00 100 /min [facility] Body height 2023-10-25 18:18:00 160 cm [facility] Body weight 2023-10-25 18:18:00 85.276 kg [facility] BMI 2023-10-25 18:18:00 33.30 kg/m2 [facility] Systolic blood pressure 2023-10-11 19:49:00 134 mm[Hg] Destinee Seybo ld - External Diastolic blood pressure 2023-10-11 19:49:00 82 mm[Hg] Destinee ybo ld - External Heart rate 2023-10-11 19:49:00 120 /min Kelse y Seybold - External Body temperature 2023-10-11 19:49:00 36.83 [place] Destinee Seybold - External Respiratory rate 2023-10-11 19:49:00 18 /min Destinee Ritchieybold - External Body height 2023-10-11 19:49:00 162.6 cm Genevieve nandini Seybold - External Body weight 2023-10-11 19:49:00 85.787 kg Genevieve ey Seybold - External BMI 2023-10-11 19:49:00 32.46 kg/m2 Genevieve nandini Wiliam - External Oxygen saturation in Arterial blood by Pulse oximetry 2023-10-11 19:49:00 100 /min Destinee Cain ld - External Systolic blood pressure 2022-06-15 23:38:00 128 mm[Hg] [facility] Diastolic blood pressure 2022-06-15 23:38:00 86 mm[Hg] [facility] Heart rate 2022-06-15 23:38:00 63 /min Unive [facility] Respiratory rate 2022-06-15 23:38:00 15 /min [facility] Oxygen saturation in Arterial blood by Pulse oximetry 2022-06-15 23:38:00 100 /min [facility] Body temperature 2022-06-15 20:33:00 37.33 [place] [facility] Body height 2022-06-15 20:33:00 160 cm [facility] Body weight 2022-06-15 20:33:00 71.668 kg [facility] BMI 2022-06-15 20:33:00 27.99 kg/m2 [facility] Systolic blood pressure 2022-05-21 17:30:00 117 mm[Hg] [facility] Diastolic blood pressure 2022-05-21 17:30:00 71 mm[Hg] [facility] Heart rate 2022-05-21 17:30:00 63 /[facility] 2022-05-21 17:30:00 10 /min [facility] Oxygen saturation in Arterial blood by Pulse oximetry 2022-05-21 17:30:00 100 /min [facility] Body temperature 2022-05-21 16:55:50 36.11 [place] [facility] Body height 2022-05-21 16:50:00 160 cm [facility] Body weight 2022-05-21 16:50:00 72.576 kg [facility] BMI 2022-05-21 16:50:00 28.34 kg/m2 [facility] Systolic blood pressure 2024-05-07 13:29:00 140 mm[Hg] [facility] Diastolic blood pressure 2024-05-07 13:29:00 92 mm[Hg] [facility] Heart rate 2024-05-07 13:29:00 82 /min [facility] Respiratory rate 2024-05-07 13:29:00 16 /min [facility] Oxygen saturation in Arterial blood by Pulse oximetry 2024-05-07 13:29:00 99 /min [facility] Body height 2024-05-07 13:28:00 160 cm [facility] Body weight 2023-10-25 18:18:00 85.276 kg [facility] BMI 2023-10-25 18:18:00 33.30 kg/m2 [facility] Body temperature 2022-06-15 20:33:00 37.33 [place] [facility] Procedures Procedure Date / Time Performed Performing Clinician Source MR BRAIN W WO CONTRAST WITH NEUROQUANT 2024-01-05 21:31:31 Yadi Epstein [facility] CONSENT/REFUSAL FOR DIAGNOSIS AND TREATMENT 2023-10-25 18:03:16 Doctor Unassigned, Barlow [facility] POCT TEST 2022-06-15 23:18:00 uLpe Brenner [facility] URINE DRUG (IMMUNOASSAY) - COMPREHENSIVE DRUG SCREEN 2022-06-15 23:17:00 Lupe Brenner [facility] URINALYSIS 2022-06-15 23:15:00 Lupe Brenner [facility] CT CERVICAL SPINE WO CONTRAST 2022-06-15 21:46:53 Lupe Brenner [facility] CT HEAD WO CONTRAST 2022-06-15 21:46:53 Lupe Brenner [facility] COMP. METABOLIC PANEL ([id number]) 2022-06-15 21:04:00 Lupe Brenner [facility] CBC WITH DIFF 2022-06-15 21:04:00 Lupe Brenner [facility] NOTICE OF PRIVACY PRACTICES 2022-05-21 17:32:32 Doctor Unassigned, Barlow [facility] CONSENT/REFUSAL FOR DIAGNOSIS AND TREATMENT 2022-05-21 17:31:00 Doctor Unassigned, Barlow [facility] MAGNESIUM 2022-05-21 16:53:00 Deo Sheldon [facility] TEST, SERUM 2022-05-21 16:53:00 Ronny Sheldon [facility] COMP. METABOLIC PANEL ([id number]) 2022-05-21 16:53:00 Deo Sheldon [facility] CBC WITH DIFF 2022-05-21 16:53:00 Deo Sheldon [facility] SARS-COV-2 COVID-19 VACCINE,0.3ML,IM (PFIZER) 2020-12-12 14:31:35 Doctor Unassigned, Barlow [facility] Plan of Care Planned Activity Planned Date Details Comments Source Future Scheduled Test 2021-04-08 00:00:00 INFLUENZA VACCINE (Season Ended) [code = INFLUENZA VACCINE (Season Ended)] [facility] Future Scheduled Test 2021-01-02 00:00:00 SARS-CoV-2 (COVID-19) Vaccine (2 - Pfizer 2-dose series) [code = SARS-CoV-2 (COVID-19) Vaccine (2 - Pfizer 2-dose series)] [facility] Future Scheduled Test 2005 00:00:00 Screening for malignant neoplasm of cervix (procedure) [code = 479932267] [facility] Future Scheduled Test 2003 00:00:00 DTaP,Tdap,and Td Vaccines (1 - Tdap) [code = DTaP,Tdap,and Td Vaccines (1 - Tdap)] [facility] Future Scheduled Test 2002 00:00:00 Hepatitis C screening (procedure) [code = 234958609] [facility] Future Scheduled Test 1996 00:00:00 Depression screening (procedure) [code = 411837855] [facility] Future Scheduled Test 1985 00:00:00 VARICELLA VACCINES (1 of 2 - 2-dose childhood series) [code = VARICELLA VACCINES (1 of 2 - 2-dose childhood series)] [facility] Encounters Start Date/Time End Date/Time Encounter Type Admission Type Attending Clinicians Care Facility Care Department Encounter ID Source 2024-05-28 00:00:00 Inpatient R [facility] [id number] [facility] 2025-02-04 11:00:00 2025-02-04 11:00:00 Outpatient R DARREL BIRD DIOSELY [facility] [id number] [facility] 2024-08-07 13:00:00 2024-08-07 14:05:21 Outpatient R DARREL BIRD DIOKIRSITN [facility] [id number] [facility] 2024-08-07 13:00:00 2024-08-07 14:05:21 [facility] 1.2.840.114 350.1.13.10 4.2.7.2.686 [id number] [facility] 2024-07-23 00:00:00 2024-07-23 15:31:28 [facility] 1.2.840.114 350.1.13.10 4.2.7.2.686 [id number] [facility] 2024-07-19 00:00:00 2024-07-19 09:18:[address] [facility] MEDICAL OFFICE BUILDING 1.2.840.114 350.1.13.10 4.2.7.2.686 [id number] [facility] 2024-05-18 00:00:00 2024-06-23 18:24:37 Patient Secure Msg Doctor Unassigned, Barlow Doctor Unassigned, Barlow [facility] 1.2.840.114 350.1.13.10 4.2.7.2.686 [id number] [facility] 2024-06-20 00:00:00 2024-06-21 15:12:46 Telephone Darrel Bird [facility] MEDICAL OFFICE BUILDING 1.2.840.114 350.1.13.10 4.2.7.2.686 [id number] [facility] 2024-06-07 09:15:00 2024-06-07 09:15:00 Outpatient SAMMIE ZUNIGA CASSIE [facility] [id number] [facility] 2024-05-14 00:00:00 2024-05-16 16:14:04 Telephone Darrel Bird 1.2.840.1 [id number] 3.104.2.7 .3.709978 .[id number] [facility] 2024-05-07 08:00:00 2024-05-07 08:30:00 Office Visit Darrel Bird 1.2.840.1 [id number] 3.104.2.7 .[id number] [id number] [facility] 2024-05-07 08:00:00 2024-05-07 08:00:00 Outpatient R DARREL BIRD DIOSELY [facility] [id number] [facility] 2024-05-06 00:00:00 2024-05-06 00:00:00 Travel 1.2.840.1 [id number] 3.104.2.7 .[id number] .8 1.2.840.114 350.1.13.10 4.2.7.3.698 [id number] [facility] 2024-04-26 14:00:00 2024-04-26 14:00:00 Outpatient R DARREL BIRD DIOSELY [facility] [id number] [facility] 2024-04-25 00:00:00 2024-04-26 08:37:02 Telephone Darrel Bird 1.2.840.1 [id number] 3.104.2.7 .[id number] .8 [id number] [facility] 2024-04-11 00:00:00 2024-04-11 10:54:16 Refill Darrel Bird 1.2.840.1 [id number] 3.104.2.7 .3.285811 .8 [id number] [facility] 2024-03-08 14:45:00 2024-03-08 14:45:00 Outpatient NEO JESUS [facility] [id number] [facility] 2024-01-30 00:00:00 2024-03-03 18:23:03 Patient Secure Msg Doctor Unassigned, Barlow [facility] 1.2.840.114 350.1.13.10 4.2.7.2.686 [id number] [facility] 2024-02-22 00:00:00 2024-02-22 14:12:02 Telephone LucianYadi fowler [facility] 1.2.840.114 350.1.13.10 4.2.7.2.686 [id number] [facility] 2024-01-23 00:00:00 2024-01-31 16:58:06 Telephone Darrel Bird [facility] MEDICAL OFFICE BUILDING 1.2.840.114 350.1.13.10 4.2.7.2.686 [id number] [facility] 2024-01-26 14:00:00 2024-01-26 14:00:00 Outpatient DESTINEE FELIPE [id number] Destinee Swain 2024-01-05 14:40:47 2024-01-05 23:59:00 Outpatient DARREL QUINN DIOSELY [facility] [id number] [facility] 2024-01-05 14:40:47 2024-01-05 23:59:00 Hospital Encounter Darrel Bird [facility] 1.2.840.114 350.1.13.10 4.2.7.2.686 [id number] [facility] 2024-01-05 00:00:00 2024-01-05 00:00:00 Outpatient R DARREL BIRD [facility] [id number] [facility] 2023-12-26 00:00:00 2023-12-29 14:45:08 Refill Yadi Epstein [facility] MEDICAL OFFICE BUILDING 1.2.840.114 350.1.13.10 4.2.7.2.686 [id number] [facility] 2023-12-23 00:00:00 2023-12-27 15:45:[address] [facility] MEDICAL OFFICE BUILDING 1.2.840.114 350.1.13.10 4.2.7.2.686 [id number] [facility] 2023-12-25 00:00:00 2023-12-25 00:00:00 Outpatient NAVEED AL[facility] [id number] [facility]23-12-22 00:00:00 2023-12-22 00:00:00 Outpatient NAVEED ALVAREZ [id number] Destinee Swain 2023-11-15 00:00:00 2023-12-17 18:08:09 Patient Secure Msg Doctor Unassigned, Barlow [facility] 1.2.840.114 350.1.13.10 4.2.7.2.686 [id number] [facility] 2023-12-13 14:00:00 2023-12-13 14:00:00 Outpatient JAI PETERSON [id number] [facility] 2023-12-07 15:15:00 2023-12-07 15:15:00 Outpatient R DARREL BIRD DIOSELY [facility] [id number] [facility] 2023-11-23 00:00:00 2023-11-23 00:00:00 Outpatient NAVEED ALVAREZ DESTINEE [id number] Destinee Swain 2023-11-17 09:15:00 2023-11-17 23:59:00 Outpatient R DARREL BIRD DIOSELY [facility] [id number] [facility] 2023-11-17 09:15:00 2023-11-17 23:59:00 Hospital Encounter Darrel Bird, [facility]eg [facility] 1.2.840.114 350.1.13.10 4.2.7.2.686 [id number] [facility] 2023-11-11 14:00:00 2023-11-11 14:00:00 Outpatient NAVEED ALVAREZ DESTINEE [id number] [facility] 2023-11-09 00:00:00 2023-11-09 00:00:00 Patient Secure Msg Doctor Unassigned, Barlow [facility] 1.2.840.114 350.1.13.10 4.2.7.2.686 [id number] [facility] 2023-11-03 00:00:00 2023-11-03 00:00:00 Outpatient R DARREL BIRD DIOSELY [facility] [id number] [facility] 2023-10-25 13:00:00 2023-10-25 14:00:00 Office Visit Darrel Bird [facility] MEDICAL OFFICE BUILDING 1.2.840.114 350.1.13.10 4.2.7.2.686 [id number] [facility] 2023-10-25 13:00:00 2023-10-25 13:00:00 Outpatient R DARREL BIRD DIOSELY [facility] [id number] [facility] 2023-10-25 00:00:00 2023-10-25 00:00:00 Orders Only Doctor Unassigned, [place] [facility] [id number] [facility] 2023-10-18 00:00:00 2023-10-18 00:00:00 Outpatient NAVEED ALVAREZ [id number] [facility] 2023-10-18 00:00:00 2023-10-18 00:00:00 Outpatient MD DESTINEE MOSLEY [id number] [facility] 2023-10-14 00:00:00 2023-10-14 00:00:00 Outpatient NAVEDE ALVAREZ [id number] [facility] 2023-10-14 00:00:00 2023-10-14 00:00:00 Outpatient NAVEED ALVAREZ [id number] [facility] 2023-10-14 00:00:00 2023-10-14 00:00:00 Outpatient ZULEIKA BARRERA [id number] [facility] 2023-10-14 00:00:00 2023-10-14 00:00:00 Outpatient NAVEED ALVAREZ [id number] [facility] 2023-10-11 14:50:00 2023-10-11 14:50:00 Outpatient LAB90 DESTINEE FELIPE [id number] [facility] 2023-10-11 14:00:00 2023-10-11 14:00:00 Outpatient NAVEED ALVAREZ [id number] [facility] 2023-06-07 00:00:00 2023-06-07 00:00:00 Outpatient GC_GCBZW_Ka dikarinaa_S [facility] [id number] [facility] 2022-06-15 14:32:00 2022-06-15 18:36:00 Emergency Lupe Brenner [facility] [id number] [id number] [facility] 2022-06-15 14:32:00 2022-06-15 18:36:00 Emergency X Lupe BRENNER K [facility] ERT [id number] [facility] 2022-05-21 11:48:00 2022-05-21 13:06:00 Emergency DEO WILKES [facility] ERT [id number] [facility] 2022-05-21 11:48:00 2022-05-21 13:06:00 Emergency X DEO SHELDON [facility] ERT [id number] [facility] 2022-05-21 11:48:00 2022-05-21 13:06:00 Emergency Pito Deo [facility] [id number] [facility] Results Test Description Test Time Test Comments Results Result Co [facility] ([id number])2022-06-15 21:31:27* Test Item Value Reference Range Interpretation Comme nts NA (test code = 8765660332) 139 mmol/L 135-145 K (test code = 6074589047) 3.7 mmol/L 3.5-5.0 CL (test code = 2530651939) 107 mmol/L 98-108 CO2 TOTAL (test code = 8930304906) 25 mmol/L 23-31 AGAP (test code = 0927741950) 2-16 BUN (test code = 3272509001) 6 mg/dL 7-23 L GLUCOSE (test code = 7361550564) 89 mg/dL 70-110 CREATININE (test code = 5802448144) 0.71 mg/dL 0.50-1.04 TOTAL BILI (test code = 5678630051) 0.4 mg/dL 0.1-1.1 CALCIUM (test code = 6307185642) 8.9 mg/dL 8.6-10.6 T PROTEIN (test code = 1125407489) 7.3 g/dL 6.3-8.2 ALBUMIN (test code = 7826992649) 4.4 g/dL 3.5-5.0 ALK PHOS (test code = 8889935492) 67 U/L 34-122 ALTv (test code = 1742-6) 52 U/L 5-35 H AST(SGOT) (test code = 9683844575) 32 U/L 13-40 eGFR (test code = 4242037274) mL/min/1.73m2 MARKEL (test code = MARKEL) Association [...] imaging tests). Lab Interpretation (test code = 35749-4) Abnormal [facility] WITH [id number] 21:16:48* Test Item Value Reference Range Interpretation Comme nts WBC (test code = 6690-2) See_Comment [Automated [employer]] The system which generated this result transmitted reference range: 4.30 - 11.10 10*3/?L. The reference range was not used to interpret this result as normal/abnormal. RBC (test code = 789-8) See_Comment [Automated [employer]] The system which generated this result [...] 34.4 g/dL 31.6-35.1 RDW-SD (test code = 21580-5) 47.8 fL 39.0-49.9 RDW-CV (test code = 788-0) 15.2 % 12.0-15.5 PLT (test code = 777-3) See_Comment [Automated [employer]] The system which generated this result transmitted reference range: 166 - 358 10*3/?L. The reference range was not used to interpret this result as normal/abnormal. MPV (test code = 74757-6) 11.0 fL 9.5-12.9 NRBC/100 WBC (test code = 0872267034) See_Comment [Automated [employer] ssage] The system which generated this result transmitted reference range: 0.0 - 10.0 /100 WBCs. The reference range was not used to interpret this result as normal/abnormal. NRBC x10^3 (test code = 5423014070) See_Comment [Automated [employer]] The system which generated this result transmitted reference range: 10*3/?L. The reference range was not used to interpret this result as normal/abnormal. GRAN MAT (NEUT) % (test code = 770-8) 50.4 % IMM GRAN % (test code = 2316233154) 0.20 % LYMPH % (test code = 736-9) 40.0 % MONO % (test code = 5905-5) 6.8 % EOS % (test code = 713-8) 2.3 % BASO % (test code = 706-2) 0.3 % GRAN MAT x10^3(ANC) (test code = 0471662220) 3.26 10*3/uL 1.88-7.09 IMM GRAN x10^3 (test code = 0008436635) 0.00-0.06 LYMPH x10^3 (test code = 731-0) 2.59 10*3/uL 1.32-3.29 MONO x10^3 (test code = 742-7) 0.44 10*3/uL 0.33-0.92 EOS x10^3 (test code = 711-2) 0.15 10*3/uL 0.03-0.39 BASO x10^3 (test code = 704-7) 0.01-0.07 Lab Interpretation (test code = 29917-7) Abnormal [facility]"
[2024-08-24] MEDS ORDERED: METOCLOPRAMIDE 10 MG/2mL INJ ONE (11:47)
[2024-08-24] MEDS ORDERED: DIPHENHYDRAMINE 50 MG/ML VIAL ONE (11:47)
[2024-08-24 12:02] LABS: Absolute Eosinophils 0.1 K/uL (0-0.5); Absolute Lymphocytes (CBC) 2.1 K/uL (0.7-4.9); Absolute Monocytes 0.5 K/uL (0.1-1.3); Absolute Neutrophil 3.5 K/uL (1.8-8.0); Basophils % 0.6 % (0-1.3); Eosinophils % 1.9 % (0-4.4); Hematocrit 31.8 % (36.0-45.0); Hemoglobin 10.5 g/dL (12.0-15.0); Lymphocytes % 33.5 % (15.3-44.8); MCH 26.6 pg (27.0-35.0); MCHC 33.1 g/dL (32.0-36.0); MCV 80.4 fL (80-100); Monocytes % 7.8 % (3.3-12.3); Neutrophils % 56.2 % (41.7-73.7); Platelets 308 thou/uL (152-406); RBC Red Blood Cell Count 3.96 M/uL (3.86-4.86); Red Cell Distribution Width 16.7 % (12.1-15.2)
[2024-08-24 12:20] LABS: Anion Gap 8.5 mEq/L (5.0-15.0); BUN Blood Urea Nitrogen 8 mg/dL (7-18); Bicarbonate 21 mEq/L (21-32); Glomerular Filtration Rate 108 ml/min (=/>90); Glucose Level 102 mg/dL (74-106); Potassium 3.5 mEq/L (3.5-5.1); Sodium Level 138 mEq/L (136-145)
[2024-08-24 12:23] LABS: Troponin High Sensitivity < 3.0 pg/mL (<58.9)
--- NOTE | 2024-08-24 12:24 | RAD REPORT ---
EXAMINATION: ONE VIEW CHEST XR CLINICAL INDICATION: CHEST PAIN TECHNIQUE: Frontal chest projection is submitted. Examination is limited by patient positioning and t echnique. COMPARISON: 10/31/2021 FINDINGS: The lungs are well inflated and clear. The heart is upper limit of normal in size. No displaced fract ures identified. IMPRESSION: No acute intrathoracic abnormalities.
--- NOTE | 2024-08-24 12:26 | RAD REPORT ---
EXAM: CT brain without contrast HISTORY: HEADACHE COMPARISON: 09/26/2023 TECHNIQUE: Multiple contiguous axial images were obtained and a CT of the brain without contrast. Sag ittal and coronal reformats were performed. One or more of the following dose reduction techniques were used: Automated exposure control, adjust ment of the mA and/or kV according to patient size, and/or iterative reconstruction. FINDINGS: No evidence of hydrocephalus, intracranial hemorrhage, or extra-axial fluid collection. The brain is normal in morphology. No evidence of midline shift or areas of brain edema. The calvarium is intact. The visualized paranasal sinuses and mastoid air cells are essentially clear . Divergent gaze is noted. IMPRESSION: No evidence of acute intracranial abnormality. Divergent gaze noted.
--- NOTE | 2024-08-24 12:35 | ER ---
Nurse's Notes [facility] Name: Taisha Gavin Age: 39 yrs Sex: Female : 1985 Arrival Date: 08/24/2024 Time: 11:21 Bed 14 Private MD: Diagnosis: Headache;Chest pain, unspecified;Elevated blood-pressure reading, without diagnosis of hypertension Presentation: 08/24 11:25 Chief complaint: EMS states: ANXIETY AND BILLS. Coronavirus screen: At this time, the bp client does not indicate any symptoms associated with coronavirus-19. Ebola Screen: No symptoms or risks identified at this time. Initial Sepsis Screen: Does the patient meet any 2 criteria? No. Patient's initial sepsis screen is negative. Does the patient have a suspected source of infection? No. Patient's initial sepsis screen is negative. Risk Assessment: Do you want to hurt yourself or someone else? Patient reports no desire to harm self or others. Onset of symptoms is unknown. Care prior to arrival: IV initiated. 20 GA, in the right antecubital area, Glucose check: 104. 11:25 Acuity: CRISTHIAN 3 bp 11:25 Method Of Arrival: EMS: [facility] bp Triage Assessment: 11:26 Headache History: The patient has had previous headaches and this one is similar to bp previous episodes. General: Appears in no apparent distress. obese, Behavior is cooperative, appropriate for age, agitated, anxious, crying. Pain: Complains of pain in head and chest Pain currently is 8 out of 10 on a pain scale. Pain began 1 day ago. Also complains of no other associated symptoms. EENT: No deficits noted. Neuro: Level of Consciousness is awake, alert, obeys commands, Oriented to Appropriate for age. Cardiovascular: Rhythm is sinus rhythm. Respiratory: No deficits noted. GI: No signs and/or symptoms were reported involving the gastrointestinal system. : No signs and/or symptoms were reported regarding the genitourinary system. Derm: No deficits noted. Musculoskeletal: No deficits noted. Historical: - Allergies: 11:26 Codeine; bp 11:26 Lasix; bp 11:26 PENICILLINS; bp - PMHx: 11:26 Hydrocephalus; Seizure; bp - PSHx: 11:26 Appendectomy; section; Cholecystectomy; Tubal reversal; bp - Immunization history:: Adult Immunizations up to date. - Infectious Disease History:: Denies. - Social history:: Smoking status: unknown. Screenin:33 [facility] ED Fall Risk Assessment (Adult) History of falling in the last 3 months, bp including since admission No falls in past 3 months (0 pts) Confusion or Disorientation No (0 pts) Intoxicated or Sedated No (0 pts) Impaired Gait No (0 pts) Mobility Assist Device Used No (0 pt) Altered Elimination No (0 pt) Score/Fall Risk Level 0 - 2 = Low Risk Oriented to surroundings. Abuse screen: Denies threats or abuse. Denies injuries from another. Nutritional screening: No deficits noted. Tuberculosis screening: No symptoms or risk factors identified. Assessment: 11:33 General: SEE TRIAGE NOTE. bp 12:48 Pain: Denies pain. bp Vital Signs: 11:25 BP 130 / 94; Pulse 92; Resp 20; Temp 98; Pulse Ox 97% ; bp 12:47 BP 116 / 95; Pulse 76; Resp 15; Pulse Ox 100% ; bp ED Course: 11:25 Patient arrived in ED. bp 11:26 Triage completed. bp 11:32 Man Hoffman DO is Attending Physician. ms3 11:33 Arm band placed on. bp 11:33 Patient has correct armband on for positive identification. bp 11:33 Maintain EMS IV. Dressing intact. Good blood return noted. Site clean \T\ dry. Gauge \T\ bp site: 20 GA RAC. Flushed with 10 mL NS. 11:39 Stephen Parish, RN is Primary Nurse. bp 12:00 CT Head Brain wo Cont In Process Unspecified. EDMS 12:13 XRAY Chest (1 view) In Process Unspecified. EDMS 12:48 Provided Education on: NA. bp 12:48 No provider procedures requiring assistance completed. IV discontinued, intact, bp bleeding controlled, No redness/swelling at site. Pressure dressing applied. Administered Medications: 11:55 Drug: metoCLOPramide IVP 10 mg IVP once; over 1 to 2 minutes Route: IVP; Site: right bp antecubital; 12:49 Follow up: Response: No adverse reaction bp 11:55 Drug: diphenhydrAMINE IVP 25 mg IVP once Route: IVP; Site: right antecubital; bp 12:49 Follow up: Response: No adverse reaction bp Medication: 11:33 VIS not applicable for this client. bp Outcome: 12:35 Discharge ordered by ms3 12:48 Discharged to home via wheelchair, with family, bp 12:48 Condition: stable 12:48 Discharge instructions given to patient, Instructed on discharge instructions, follow up and referral plans. Demonstrated understanding of instructions, follow-up care, 12:49 Patient left the ED. bp Signatures: Dispatcher [employer] EDStephen Delgado, RN RN bp Man Hoffman DO DO ms3
--- NOTE | 2024-08-24 12:36 | EDPHYS ---
Physician Documentation [facility] Name: Taisha Gavin Age: 39 yrs Sex: Female : 1985 Arrival Date: 08/24/2024 Time: 11:21 Bed 14 Private MD: ED Physician Man Hoffman HPI: 08/24 11:55 This 39 yrs old Black Female presents to ER via EMS with complaints of Anxiety, ms3 Headache. 11:55 Taisha Gurrola, a 39-year-old female, presents to the Emergency Department with ms3 chest pain and a severe headache. The chest pain is described as a sharp pain located in the left lower chest and radiates to the left arm. She reports the headache as a pounding, lingering sensation. Her past medical history includes epilepsy, for which she is taking 2000 mg of Keppra daily. She also mentions having hydrocephalus and states that since 2015, the spots on her brain have increased in size. She is not currently using any illicit drugs and reports no nausea, vomiting, or breathing difficulties.. Historical: - Allergies: 11:26 Codeine; bp 11:26 Lasix; bp 11:26 PENICILLINS; bp - PMHx: 11:26 Hydrocephalus; Seizure; bp - PSHx: 11:26 Appendectomy; section; Cholecystectomy; Tubal reversal; bp - Immunization history:: Adult Immunizations up to date. - Infectious Disease History:: Denies. - Social history:: Smoking status: unknown. ROS: 11:55 Constitutional: Negative for fever, and chills. ms3 11:55 Respiratory: Negative for shortness of breath, cough, wheezing, and pleuritic chest pain, Abdomen/GI: Negative for abdominal pain, nausea, vomiting, diarrhea, and constipation, MS/Extremity: Negative for injury and deformity, Skin: Negative for injury, rash, and discoloration, Neuro: Negative for headache, weakness, numbness, tingling. 11:55 Cardiovascular: Positive for chest pain, Exam: 11:55 Constitutional: This is a well developed, well nourished patient who is awake, alert, ms3 and in no acute distress. Head/Face: Normocephalic, atraumatic. Cardiovascular: Regular rate and rhythm with a normal S1 and S2. No gallops, murmurs, or rubs. Normal PMI, no JVD. No pulse deficits. Respiratory: Lungs have equal breath sounds bilaterally, clear to auscultation and percussion. No rales, rhonchi or wheezes noted. No increased work of breathing, no retractions or nasal flaring. Abdomen/GI: Soft, non-tender, with normal bowel sounds. No distension or tympany. No guarding or rebound. No evidence of tenderness throughout. Skin: Warm, dry with normal turgor. Normal color with no rashes, no lesions, and no evidence of cellulitis. Neuro: Awake and alert, GCS 15, oriented to person, place, time, and situation. Cranial nerves II-XII grossly intact. Motor strength 5/5 in all extremities. Sensory grossly intact. Cerebellar exam normal. Normal gait. 11:58 ECG was reviewed by the Attending Physician. ms3 Vital Signs: 11:25 BP 130 / 94; Pulse 92; Resp 20; Temp 98; Pulse Ox 97% ; bp 12:47 BP 116 / 95; Pulse 76; Resp 15; Pulse Ox 100% ; bp MDM: 11:33 Medical Screening Exam initiated ms3 11:55 Differential diagnosis: Hydrocephallus vs SD vs Intracranial HTN. ms3 19:37 Data reviewed: vital signs, nurses notes, lab test result(s), EKG, radiologic studies, ms3 and as a result, I will discharge patient. I considered the following discharge prescriptions or medication management in the emergency department Medications were administered in the Emergency Department. See MAR. Historians other than the Patient: EMS: . Counseling: I had a detailed discussion with the patient and/or guardian regarding the historical points, exam findings, and any diagnostic results supporting the discharge/admit diagnosis, lab results, radiology results, the need for outpatient follow up, to return to the emergency department if symptoms worsen or persist or if there are any questions or concerns that arise at home. Special discussion: Based on the patient's history, exam, and Dx evaluation, there is no indication for emergent intervention or inpatient Tx. It is understood by the patient/guardian that if the Sx's persist or worsen they need to return immediately for re-evaluation. ED course: Discussed labs, EKG, chest x-ray with the patient. Patient troponin negative. Patient states her headache improved after 10 mg Reglan and 25 mg of Benadryl. On reevaluation patient is alert and oriented x 4, no apparent distress, nontoxic-appearing, speaking full sentences. Patient to follow-up with primary care physician 2 to 3 days. All questions were answered. Return precautions discussed include worsening symptoms, or any other concerns. 08/24 11:35 Order name: Basic Metabolic Panel; Complete Time: 12:27 ms3 08/24 11:35 Order name: CBC with Diff; Complete Time: 12:27 ms3 08/24 11:35 Order name: Magnesium; Complete Time: 12:27 ms3 08/24 11:35 Order name: Troponin HS; Complete Time: 12:27 ms3 08/24 11:35 Order name: XRAY Chest (1 view); Complete Time: 12:27 ms3 08/24 11:37 Order name: CT Head Brain wo Cont; Complete Time: 12:27 ms3 08/24 11:35 Order name: EKG; Complete Time: 11:36 ms3 08/24 11:35 Order name: Cardiac monitoring; Complete Time: 11:40 ms3 08/24 11:35 Order name: EKG - Nurse/Tech; Complete Time: 11:40 ms3 08/24 11:35 Order name: IV Saline Lock; Complete Time: 11:40 ms3 08/24 11:35 Order name: Labs collected and sent; Complete Time: 11:54 ms3 08/24 11:35 Order name: O2 Per Protocol; Complete Time: 11:40 ms3 08/24 11:35 Order name: O2 Sat Monitoring; Complete Time: 11:40 ms3 EC:58 Rate is 80 beats/min. Rhythm is regular. QRS [place] is Normal. AK interval is normal. QRS ms3 interval is normal. Clinical impression: Normal ECG. Interpreted by me. Reviewed by me. Administered Medications: 11:55 Drug: metoCLOPramide IVP 10 mg IVP once; over 1 to 2 minutes Route: IVP; Site: right bp antecubital; 12:49 Follow up: Response: No adverse reaction bp 11:55 Drug: diphenhydrAMINE IVP 25 mg IVP once Route: IVP; Site: right antecubital; bp 12:49 Follow up: Response: No adverse reaction bp Disposition Summary: 08/24/24 12:35 Discharge Ordered Notes: Location: Home ms3 Condition: Stable ms3 Diagnosis - Headache ms3 - Chest pain, unspecified ms3 - Elevated blood-pressure reading, without diagnosis of hypertension ms3 Followup: ms3 - With: Private Physician - When: 2 - 3 days - Reason: Recheck today's complaints Discharge Instructions: - Discharge Summary Sheet ms3 - Nonspecific Chest Pain, Adult ms3 - General Headache Without Cause ms3 Forms: - Medication Reconciliation Form ms3 - Antibiotic Education ms3 - Prescription Opioid Use ms3 - Patient Portal Instructions ms3 - Leadership Thank You Letter ms3 Signatures: Dispatcher [employer] Stephen Hernandez, RN RN bp Man Hoffman DO DO ms3 Corrections: (The following items were deleted from the chart) 11:37 11:37 Head Brain Wo Cont+CT.RAD.BRZ ordered. VERITO SELLERS
[2024-08-24 13:03] VITALS: TEMP 98
[2024-08-24 13:04] VITALS: BP 116/95; O2SAT 100
--- NOTE | 2024-08-30 13:14 | EKG ---
Test Date: 2024-08-24 Test Time: 11:30:02 Food Service Tray Attendant: BP MEASUREMENT RESULTS: Intervals: Rate: 80 AK: 158 QRSD: 80 QT: 366 QTc: 422 Stacy: P: 57 AK: 158 QRS: 18 T: 11 INTERPRETIVE STATEMENTS: Normal sinus rhythm Normal ECG Compared to ECG 09/11/2022 15:22:16 No significant changes Electronically Signed On 08-30-24 13:04:18 IT SYSTEMS ANALYST by David Dickinson
== END 2024-08-24 12:49 | disposition home or self-care (01) ==
LOC: ER 11:21
DX: R51.9 Headache, unspecified (principal); R07.9 Chest pain, unspecified; R03.0 Elevated blood-pressure reading, without diagnosis of hypertension
CPT/HCPCS: 36415; 70450; 71045; 80048; 83735; 84484; 85025; 93005; 96374; 96375; 99284; J1200; J2765

== ENCOUNTER 2024-12-04 17:33 | Emergency (ER) | payer OTHER ==
--- OUTSIDE RECORDS SUMMARY | 2024-12-04 17:37 | XMS REPORT | Continuity of Care Document ---
Author Name Unknown Address [address] [facility] [place] [address] Organization [facility] [place] Address [address] [facility] [place] [address] Care Team Providers Care Automatic Glove Turner And Former Name Role Phone JENARO REMY JR Primary Care Physician DARREL Amezcua Attending Clinician DARREL Gates Attending Clinician Darrel Gates MD Attending Clinician [phone] Doctor Unassigned, [place] Attending Clinician U huiailGAVIOTA Moreno Attending Clinician Unavailable SAMMIE WAYNE Attending Clinician Unavailable SAMMIE WAYNE Attending Clinician Unavailable NEO MANCERA Attending Clinician Unavailable Doctor Unassigned, [place] Attending Clinician U huiailable Yadi Patterson Attending Clinician [phone] NAVEED ALVAREZ Attending Clinician Unavailab JAI Finch Attending Clinician Unavailab snehal Jaimes [facility] Eeg Attending Clinician Unavailable MD OLGA Attending Clinician Unavailab ZULEIKA Luong Attending Clinician Unavailjuliet e LAB90 Attending Clinician Unavailable [email or web address]_S Attending Clinician UnavailLupe Clinton Attending Clinician [phone] Lupe BRENNER Attending Clinician Unavailable DEO SHELDON Attending Clinician Unavailable Deo Sheldon MD Attending Clinician [phone] Nurse, Adc Pob Immunization Attending Clinician Unavailable Bakari Coats DO Attending Clinician [phone] DARREL BIRD Admitting Clinician Unavailjuliet montoya [email or web address]_S Admitting Clinician Unavaila Lupe Miranda Admitting Clinician Unavailable Payers Payer Name Policy Type Policy Number Effective Date Expirati on Date Source LOULOU KHALIL [id number] 2023 00:00:00 [facility] MEDELLIN COPAY FOCUS 9 [id number] 2023 00:00:00 [facility] [id number] 2023 00:00:00 Problems Condition Name Condition Details Condition Category Status Onset Date Resolution Date Last Treatment Date Treating Clinician Comments Source Seizures (multi HCC) Seizures (multi HCC) Disease Active 305 00:00: 00 Destinee salcido No known active problems No known active problems Disease [facility] Allergies, Adverse Reactions, Alerts Allergy Name Allergy Type Status Severity Reaction(s) Onset Date Inactive Date Treating Clinician Comments Source LACOSAMI DE DRUG INGREDI Active Unknown-Cmnt 01-30 00:00: 00 [facility] Lacosami de Propensi ty to adverse reaction s Active Unknown - See comments 01-30 00:00: 00 Patient sent a message that she had an allergic reaction to Vimpat. I did not see the patient. Advised her to stop taking the medicatio n. [facility] Codeine Propensi ty to adverse reaction s Active Itching 2021-08 0-14 00:00: 00 [facility] Furosemi de Propensi ty to adverse reaction s Active Itching 2021-08 014 00:00: 00 [facility] CODEINE DRUG INGREDI Active ITCHING 2021-08 0-14 00:00: 00 [facility] FUROSEMI DE DRUG INGREDI Active ITCHING 2021-08 0-14 00:00: 00 [facility] Codeine Propensi ty to adverse reaction s Active Rash 11-01 00:00: 00 [facility] Furosemi de Propensi ty to adverse reaction s Active Hives 11-01 00:00: 00 [facility] CODEINE DRUG INGREDI Active Rash 11-01 00:00: 00 [facility] FUROSEMI DE DRUG INGREDI Active Hives 27 00:00: 00 [facility] Codeine Propensi ty to adverse reaction s Active Hives 10-18 00:00: 00 Destinee salcido Furosemi de Sodium Propensi ty to adverse reaction s Active Itching 10-18 00:00: 00 Destinee salcido Social History Social Habit Start Date Stop Date Quantity Comments Source [facility]coholic [facility] intake 2024-08-07 00:00:00 2024-08-07 00:00:00 Ex-drinker (finding) [facility] History of Social function 2024-08-07 00:00:00 2024-08-07 00:00:00 [facility] Tobacco use and exposure 2023-10-25 00:00:00 2023-10-25 00:00:00 Smokeless tobacco non-user [facility] Alcohol intake 2023-10-25 00:00:00 2023-10-25 00:00:00 Ex-drinker (finding) [facility] Exposure to SARS-CoV-2 (event) 2022-06-05 00:00:00 2022-06-15 14:33:00 Not sure [facility] Sex Assigned At 1985 00:00:00 1985 00:00:00 Ihsan Felipe Seybold - External Smoking Status Start Date Stop Date Source Tobacco smoking consumption unknown [facility] Never smoked tobacco [facility] Medications Ordered Medication Name Filled Medication Name Start Date Stop Date Current Medication? Ordering Clinician Indication Dosage Frequency Signature (SIG) Comments Components Source topiramate 100 mg tablet 2023-08 00:00: 00 Yes [id number] 100mg Take 1 tablet by mouth in the morning and 1 tablet in the evening. [facility] levETIRAcet am 1,000 mg tablet 2023-08 00:00: 00 Yes [id number] 1000mg Take 1 tablet by mouth in the morning and 1 tablet in the evening. [facility] levETIRAcet am 1,000 mg tablet 05-07 00:00: 00 Yes [id number] 1000mg Take 1 tablet by mouth in the morning and 1 tablet in the evening. [facility] zonisamide 100 mg capsule 05-07 00:00: 00 08-07 00:00 :00 No [id number] Take 1 tab BID [facility] zonisamide 100 mg capsule 01-30 00:00: 00 05-07 00:00 :00 No [id number] 100mg Take 1 capsule by mouth in the morning. [facility] gadoteridol (PROHANCE-2 0 mL) injection 0.2 mL/kg 01-04 21:45: 00 01-04 21:33 :00 No [id number] .2mL/kg 0.2 mL/kg, Intravenou s, ONCE, 1 dose, On Trena 01/05/24 at 1645, Routine [facility] Lacosamide (VIMPAT) 200 mg tablet 12-26 00:00: 00 01-30 00:00 :00 No [id number] 200mg Take 1 tablet by mouth in the morning and 1 tablet in the evening. [facility] Lacosamide (VIMPAT) 200 mg tablet 11-13 00:00: 00 12-22 00:00 :00 No [id number] 200mg Take 1 tablet by mouth in the morning and 1 tablet in the evening. Do all this for 90 days. [facility] busPIRone 10 mg tablet 10-24 13:18: 22 Yes 10mg Take 1 tablet by mouth in the morning and 1 tablet in the evening. [facility] acetaminoph en-caff-but albital per capsule 10-24 13:18: 22 Yes 1{capsu le} Take 1 capsule by mouth every 4 (four) hours as needed for Headache. [facility] levETIRAcet am 1,000 mg tablet 10-24 13:18: 22 05-07 00:00 :00 No 1000mg Take 1 tablet by mouth in the morning and 1 tablet in the evening. [facility] lacosamide (VIMPAT) 50 mg tablet 10-24 00:00: 00 10-24 00:00 :00 No [id number] Take 1 tablet by mouth 2 (two) times daily for 7 days, THEN 2 tablets 2 (two) times daily for 7 days, THEN 3 tablets 2 (two) times daily for 7 days, THEN 4 tablets 2 (two) times daily for 90 days. [facility] Propranolol HCl 10 MG oral Tablet [...]
D uration of Therapy: 7 days Univers [facility] NaCl 0.9% (NS) bolus infusion 1,000 mL 2021-08 00:15: 00 06-16 00:34 :00 No 1000mL at 999 mL/hr, 1,000 mL, IV Infusion, ONCE, 1 dose, On Tue06/15/22 at 1815, STAT [facility] levETIRAcet am (KEPPRA) in NACL (ISO-OS) 1,000 mg/100 mL RTU 2021-08 22:00: 00 06-15 22:25 :55 No 1000mg 1,000 mg, IV Piggyback, ONCE, 1 dose, On Tue06/15/22 at 1600, Administer over 15 Minutes, 100 mL [facility] acetaminoph en (TYLENOL) tablet 1,000 mg 2021-08 21:30: 00 06-15 21:22 :00 No 1000mg 1,000 mg, Oral, ONCE, 1 dose, On Tue06/15/22 at 1530, CAROLE [facility] levETIRAcet am (KEPPRA) 750 mg tablet 2021-08 00:00: 00 06-30 05:59 :00 No [id number] 750mg Take 1 tablet by mouth in the morning and 1 tablet in the evening. Do all this for 14 days. [facility] cefdinir 300 mg capsule 2021-08 00:00: 00 06-23 05:59 :00 No [id number] 300mg Take 1 capsule by mouth every 12 (twelve) hours for 7 days. [facility] metoclopram antoni HCl (REGLAN) injection 10 mg 2021-08 17:30: 00 05-21 17:19 :00 No 10mg 10 mg, Slow IV Push, ONCE, 1 dose, On Tue05/21/22 at 1230, CAROLE [facility] proMETHazin e (PHENERGAN) 25 mg tablet 11-01 00:00: 00 Yes 25mg Take 1 Tab by mouth every 6 (six) hours as needed for Nausea and Vomiting (headache) . [facility] Immunizations Ordered Immunization Name Filled Immunization Name Date Status Comments Source SARS-COV-2 COVID-19 PFIZER VACCINE 2021-01-09 00:00:00 Completed [facility] SARS-COV-2 COVID-19 PFIZER VACCINE 2021-01-09 00:00:00 Completed [facility] SARS-COV-2 COVID-19 PFIZER VACCINE 2021-01-09 00:00:00 Completed [facility] SARS-COV-2 COVID-19 PFIZER VACCINE 2021-01-09 00:00:00 Completed [facility] SARS-COV-2 COVID-19 PFIZER VACCINE 2020-12-12 00:00:00 Completed [facility] SARS-COV-2 COVID-19 PFIZER VACCINE 2020-12-12 00:00:00 Completed [facility] SARS-COV-2 COVID-19 PFIZER VACCINE 2020-12-12 00:00:00 Completed [facility] SARS-COV-2 COVID-19 PFIZER VACCINE 2020-12-12 00:00:00 Completed [facility] SARS-COV-2 COVID-19 PFIZER VACCINE 2020-12-12 00:00:00 Completed [facility] SARS-COV-2 COVID-19 PFIZER VACCINE Unknown Completed [facility] SARS-COV-2 COVID-19 PFIZER VACCINE Unknown Completed [facility] SARS-COV-2 COVID-19 PFIZER VACCINE Unknown Completed [facility] SARS-COV-2 COVID-19 PFIZER VACCINE Unknown Completed [facility] SARS-COV-2 COVID-19 PFIZER VACCINE Unknown Completed [facility] SARS-COV-2 COVID-19 PFIZER VACCINE Unknown Completed [facility] SARS-COV-2 COVID-19 PFIZER VACCINE Unknown Completed [facility] SARS-COV-2 COVID-19 PFIZER VACCINE Unknown Completed [facility] SARS-COV-2 COVID-19 PFIZER VACCINE Unknown Completed [facility] SARS-COV-2 COVID-19 PFIZER VACCINE Unknown Completed [facility] SARS-COV-2 COVID-19 PFIZER VACCINE Unknown Completed [facility] SARS-COV-2 COVID-19 PFIZER VACCINE Unknown Completed [facility] SARS-COV-2 COVID-19 PFIZER VACCINE Unknown Completed [facility] Vital Signs Vital Name Observation Time Observation Value Comments S ource Systolic blood pressure 2024-08-07 19:22:00 132 mm[Hg] [facility] Diastolic blood pressure 2024-08-07 19:22:00 81 mm[Hg] [facility] Heart rate 2024-08-07 19:19:00 93 /min [facility] Body height 2024-08-07 19:19:00 160 cm [facility] Body weight 2024-08-07 19:19:00 85.866 kg [facility] BMI 2024-08-07 19:19:00 33.53 kg/m2 [facility] Oxygen saturation in Arterial blood by Pulse oximetry 2024-08-07 19:19:00 98 /min [facility] Systolic blood pressure 2024-05-07 13:29:00 140 mm[Hg] [facility] Diastolic blood pressure 2024-05-07 13:29:00 92 mm[Hg] [facility] Heart rate 2024-05-07 13:29:00 82 /min [facility] Respiratory rate 2024-05-07 13:29:00 16 /min [facility] Oxygen saturation in Arterial blood by Pulse oximetry 2024-05-07 13:29:00 99 /min [facility] Body height 2024-05-07 13:28:00 160 cm [facility] Systolic blood pressure 2023-10-25 18:19:00 137 mm[Hg] [facility] Diastolic blood pressure 2023-10-25 18:19:00 96 mm[Hg] [facility] Heart rate 2023-10-25 18:19:00 89 /min [facility] Respiratory rate 2023-10-25 18:19:00 16 /min [facility] Oxygen saturation in Arterial blood by Pulse oximetry 2023-10-25 18:19:00 100 /min [facility] Body height 2023-10-25 18:18:00 160 cm [facility] Body weight 2023-10-25 18:18:00 85.276 kg [facility] BMI 2023-10-25 18:18:00 33.30 kg/m2 [facility] Systolic blood pressure 2023-10-11 19:49:00 134 mm[Hg] Destinee Byrneso ld - External Diastolic blood pressure 2023-10-11 19:49:00 82 mm[Hg] Destinee Cain ld - External Heart rate 2023-10-11 19:49:00 120 /min Kylah Swain - External Body temperature 2023-10-11 19:49:00 36.83 [place] Destinee Ritchieybold - External Respiratory rate 2023-10-11 19:49:00 18 /min Destinee Swain - External Body height 2023-10-11 19:49:00 162.6 cm Genevieve Swain - External Body weight 2023-10-11 19:49:00 85.787 kg Genevieve delatorre Seybold - External BMI 2023-10-11 19:49:00 32.46 kg/m2 Genevieve delatorre comfortderrick - External Oxygen saturation in Arterial blood by Pulse oximetry 2023-10-11 19:49:00 100 /min Destinee Cain ld - External Systolic blood pressure 2022-06-15 23:38:00 128 mm[Hg] [facility] Diastolic blood pressure 2022-06-15 23:38:00 86 mm[Hg] [facility] Heart rate 2022-06-15 23:38:00 63 /min [facility] Respiratory rate 2022-06-15 23:38:00 15 /min [facility] Oxygen saturation in Arterial blood by Pulse oximetry 2022-06-15 23:38:00 100 /min [facility] Body temperature 2022-06-15 20:33:00 37.33 [place] [facility] Body height 2022-06-15 20:33:00 160 cm [facility] Body weight 2022-06-15 20:33:00 71.668 kg [facility] BMI 2022-06-15 20:33:00 27.99 kg/m2 [facility] Systolic blood pressure 2022-05-21 17:30:00 117 mm[Hg] [facility] Diastolic blood pressure 2022-05-21 17:30:00 71 mm[Hg] [facility] Heart rate 2022-05-21 17:30:00 63 /min [facility] Respiratory rate 2022-05-21 17:30:00 10 /min [facility] Oxygen saturation in Arterial blood by Pulse oximetry 2022-05-21 17:30:00 100 /min [facility] Body temperature 2022-05-21 16:55:50 36.11 [place] [facility] Body height 2022-05-21 16:50:00 160 cm [facility] Body weight 2022-05-21 16:50:00 72.576 kg [facility] BMI 2022-05-21 16:50:00 28.34 kg/m2 [facility] Systolic blood pressure 2024-05-07 13:29:00 140 mm[Hg] [facility] Diastolic blood pressure 2024-05-07 13:29:00 92 mm[Hg] [facility] Heart rate 2024-05-07 13:29:00 82 /min [facility] Respiratory rate 2024-05-07 13:29:00 16 /min [facility] Oxygen saturation in Arterial blood by Pulse oximetry 2024-05-07 13:29:00 99 /min [facility] Body height 2024-05-07 13:28:00 160 cm [facility] Body weight 2023-10-25 18:18:00 85.276 kg [facility] BMI 2023-10-25 18:18:00 33.30 kg/m2 [facility] Body temperature 2022-06-15 20:33:00 37.33 [place] [facility] Procedures Procedure Date / Time Performed Performing Clinician Source MR BRAIN W WO CONTRAST WITH NEUROQUANT 2024-01-05 21:31:31 Yadi Epstein [facility] CONSENT/REFUSAL FOR DIAGNOSIS AND TREATMENT 2023-10-25 18:03:16 Doctor Unassigned, [place] [facility] POCT TEST 2022-06-15 23:18:00 Lupe Brenner [facility] URINE DRUG (IMMUNOASSAY) - COMPREHENSIVE DRUG SCREEN 2022-06-15 23:17:00 Lupe Brenner [facility] URINALYSIS 2022-06-15 23:15:00 Lupe Brenner [facility] CT CERVICAL SPINE WO CONTRAST 2022-06-15 21:46:53 Lupe Brenner [facility] CT HEAD WO CONTRAST 2022-06-15 21:46:53 Lupe Brenner [facility] COMP. METABOLIC PANEL ([id number]) 2022-06-15 21:04:00 Lupe Brenner [facility] CBC WITH DIFF 2022-06-15 21:04:00 Lupe Brenner [facility] NOTICE OF PRIVACY PRACTICES 2022-05-21 17:32:32 Doctor Unassigned, [place] [facility] CONSENT/REFUSAL FOR DIAGNOSIS AND TREATMENT 2022-05-21 17:31:00 Doctor Unassigned, [place] [facility] MAGNESIUM 2022-05-21 16:53:00 Deo Sheldon [facility] TEST, SERUM 2022-05-21 16:53:00 Ronny Sheldon [facility] COMP. METABOLIC PANEL ([id number]) 2022-05-21 16:53:00 Deo Sheldon [facility] CBC WITH DIFF 2022-05-21 16:53:00 Deo Sheldon [facility] SARS-COV-2 COVID-19 VACCINE,0.3ML,IM (PFIZER) 2020-12-12 14:31:35 Doctor Unassigned, [place] [facility] Plan of Care Planned Activity Planned Date Details Comments Source Future Scheduled Test 2021-04-08 00:00:00 INFLUENZA VACCINE (Season Ended) [code = INFLUENZA VACCINE (Season Ended)] [facility] Future Scheduled Test 2021-01-02 00:00:00 SARS-CoV-2 (COVID-19) Vaccine (2 - Pfizer 2-dose series) [code = SARS-CoV-2 (COVID-19) Vaccine (2 - Pfizer 2-dose series)] [facility] Future Scheduled Test 2005 00:00:00 Screening for malignant neoplasm of cervix (procedure) [code = 414422045] [facility] Future Scheduled Test 2003 00:00:00 DTaP,Tdap,and Td Vaccines (1 - Tdap) [code = DTaP,Tdap,and Td Vaccines (1 - Tdap)] [facility] Future Scheduled Test 2002 00:00:00 Hepatitis C screening (procedure) [code = 012443342] [facility] Future Scheduled Test 1996 00:00:00 Depression screening (procedure) [code = 053792497] [facility] Future Scheduled Test 1985 00:00:00 VARICELLA VACCINES (1 of 2 - 2-dose childhood series) [code = VARICELLA VACCINES (1 of 2 - 2-dose childhood series)] [facility] Encounters Start Date/Time End Date/Time Encounter Type Admission Type Attending [facility] Care Department Encounter ID Source 2024-05-28 00:00:00 Inpatient R [facility] [id number] [facility] 2025-02-04 11:00:00 2025-02-04 11:00:00 Outpatient R DARREL BIRD [facility] [id number] [facility] 2024-08-07 13:00:00 2024-08-07 14:05:21 Outpatient R DARREL BIRD [facility] [id number] [facility] 2024-08-07 13:00:00 2024-08-07 14:05:21 Office Visit Marge [facility] MEDICAL OFFICE BUILDING 1.2.840.114 350.1.13.10 4.2.7.2.686 [id number] [facility] 2024-07-23 00:00:00 2024-07-23 15:31:28 Telephone Marge [facility] MEDICAL OFFICE BUILDING 1.2.840.114 350.1.13.10 4.2.7.2.686 [id number] [facility] 2024-07-19 00:00:00 2024-07-19 [facility]18[facility] 1.2.840.114 350.1.13.10 4.2.7.2.686 [id number] [facility] 2024-05-18 00:00:00 2024-06-23 18:24:37 Patient Secure Msg Doctor Unassigned, [place] Doctor Unassigned, [place] [facility] 1.2.840.114 350.1.13.10 4.2.7.2.686 [id number] [facility] 2024-06-20 00:00:00 2024-06-21 15:12:46 Telephone Marge, Diosely [facility] OFFICE BUILDING 1.2.840.114 350.1.13.10 4.2.7.2.686 [id number] [facility] 2024-06-07 09:15:00 2024-06-07 09:15:00 Outpatient SAMMIE ZUNIGA [facility] [id number] [facility] 2024-05-14 00:00:00 2024-05-16 16:14:04 Telephone Darrel Bird 1.2.840.1 [id number] 3.104.2.7 .[id number] [id number] [id number] [facility] 2024-05-07 08:00:00 2024-05-07 08:30:00 Office Visit Darrel Bird 1.2.840.1 [id number] 3.104.2.7 .[id number] [facility] 2024-05-07 08:00:00 2024-05-07 08:00:00 Outpatient R DARREL BIRD [facility] [id number] [facility] 2024-05-06 00:00:00 2024-05-06 00:00:00 Travel 1.2.840.1 [id number] 3.104.2.7 [id number] .[id number] 1.2.840.114 350.1.13.10 4.2.7.3.698 [id number] [facility] 2024-04-26 14:00:00 2024-04-26 14:00:00 Outpatient R DARREL BIRD [facility] [id number] [facility] 2024-04-25 00:00:00 2024-04-26 08:37:02 Telephone Darrel Bird 1.2.840.1 [id number] 3.104.2.7 .3.273298 .8 [id number] [facility] 2024-04-11 00:00:00 2024-04-11 10:54:16 Refill Darrel Bird 1.2.840.1 [id number] 3.104.2.7 .[id number] [id number] [facility] 2024-03-08 14:45:00 2024-03-08 14:45:00 Outpatient NEO JESUS [facility] [id number] [facility] 2024-01-30 00:00:00 2024-03-03 18:23:03 Patient Secure Msg Doctor Unassigned, [place] [facility] 1.2.840.114 350.1.13.10 4.2.7.2.686 [id number] [facility] 2024-02-22 00:00:00 2024-02-22 14:12:02 [facility] 1.2.840.114 350.1.13.10 4.2.7.2.686 [id number] [facility] 2024-01-23 00:00:00 2024-01-31 16:58:06 Telephone Darrel Bird [facility] MEDICAL OFFICE BUILDING 1.2.840.114 350.1.13.10 4.2.7.2.686 [id number] [facility] 2024-01-26 14:00:00 2024-01-26 14:00:00 Outpatient DESTINEE FELIPE [id number] Destinee Swain 2024-01-05 14:40:47 2024-01-05 23:59:00 Outpatient DARREL QUINN [facility] [id number] [facility] 2024-01-05 14:40:47 2024-01-05 23:59:00 Hospital Encounter Darrel Bird [facility] 1.2.840.114 350.1.13.10 4.2.7.2.686 [id number] [facility] 2024-01-05 00:00:00 2024-01-05 00:00:00 Outpatient DARREL QUINN [facility] [id number] [facility] 2023-12-26 00:00:00 2023-12-29 14:45:08 Refill Yadi Epstein [facility] BUILD[facility] 1.2.840.114 350.1.13.10 4.2.7.2.686 [id number] [facility] 2023-12-23 00:00:00 2023-12-27 15:45:49 [facility] 1.2.840.114 350.1.13.10 4.2.7.2.686 [id number] [facility] 2023-12-25 00:00:00 2023-12-25 00:00:00 Outpatient [facility] [id number] [facility] 2023-12-22 00:00:00 2023-12-22 00:00:00 Out[facility] [id number] [facility]-15 00:00:00 2023-12-17 18:08:09 Patient Secure Msg Doctor Unassigned, [place] [facility] 1.2.840.114 350.1.13.10 4.2.7.2.686 [id number] [facility] 2023-12-13 14:00:00 2023-12-13 14:00:00 Outpatient JAI PETERSON [id number] Destinee [facility] 2023-12-07 15:15:00 2023-12-07 15:15:00 Outpatient R DARREL BIRD [facility] [id number] [facility] 2023-11-23 00:00:00 2023-11-23 00:00:00 Outpatient NAVEED ALVAREZ DESTINEE FELIPE [id number] Destinee Swain 2023-11-17 09:15:00 2023-11-17 23:59:00 Outpatient R DARREL BIRD [facility] [id number] [facility] 2023-11-17 09:15:00 2023-11-17 23:59:00 Hospital Encounter Darrel Bird, [facility] 1.2.840.114 350.1.13.10 4.2.7.2.686 [id number] [facility] 2023-11-11 14:00:00 2023-11-11 14:00:00 Outpatient MATTHEW ALVAREZA DESTINEE FELIPE [id number] [facility] 2023-11-09 00:00:00 2023-11-09 00:00:00 Patient Secure Msg Doctor Unassigned, [place] [facility] [facility] [id number] 350.1.13.10 4.2.7.2.686 [id number] [facility] 2023-11-03 00:00:00 2023-11-03 00:00:00 Outpatient R DARREL BIRD [facility] [id number] [facility] 2023-10-25 13:00:00 2023-10-25 14:00:00 Office Visit Darrel Bird [facility] 1.2.840.114 350.1.13.10 4.2.7.2.686 [id number] [facility] 2023-10-25 13:00:00 2023-10-25 13:00:00 Outpatient R DARREL BIRD [facility] [id number] [facility] 2023-10-25 00:00:00 2023-10-25 00:00:00 Orders Only Doctor Unassigned, [place] [facility] 1.2.840.114 350.1.13.10 4.2.7.2.686 [id number] [facility] 2023-10-18 00:00:00 2023-10-18 00:00:00 Outpatient MD DESTINEE MOSLEY [id number] [facility] 2023-10-18 00:00:00 2023-10-18 00:00:00 Outpatient NAVEED ALVAREZ [id number] [facility] 2023-10-14 00:00:00 2023-10-14 00:00:00 Outpatient NAVEED ALVAREZ [id number] [facility] 2023-10-14 00:00:00 2023-10-14 00:00:00 Outpatient NAVEED ALVAREZ [id number] [facility] 2023-10-14 00:00:00 2023-10-14 00:00:00 Outpatient ZULEIKA BARRERA [id number] [facility] 2023-10-14 00:00:00 2023-10-14 00:00:00 Outpatient NAVEED ALVAREZ [id number] [facility] 2023-10-11 14:50:00 2023-10-11 14:50:00 Outpatient LAB90 DESTINEE FELIPE [id number] [facility] 2023-10-11 14:00:00 2023-10-11 14:00:00 Outpatient NAVEED ALVAREZ [id number] [facility] 2023-06-07 00:00:00 2023-06-07 00:00:00 Outpatient GC_GCBZW_Ka cheri_S [facility] [id number] [facility] 2022-06-15 14:32:00 2022-06-15 18:36:00 Emergency Lupe Brenner [facility] 1.2.840.114 350.1.13.10 4.2.7.2.686 [id number] [facility] 2022-06-15 14:32:00 2022-06-15 18:36:00 Emergency X JORDIN, K JORDIN, K [facility] ERT [id number] [facility] 2022-05-21 11:48:00 2022-05-21 13:06:00 Emergency X DEO SHELDON [facility] ERT [id number] [facility] 2022-05-21 11:48:00 2022-05-21 13:06:00 Emergency X DEO SHELDON [facility] ERT [id number] [facility] 2022-05-21 11:48:00 2022-05-21 13:06:00 Emergency Pito [facility] [id number] 350.1.13.10 4.2.7.2.686 [id number] [facility] Results Test Description Test Time Test Comments Results Result Co mments Source [facility] (12777)2022-06-15 21:31:27* Test Item Value Reference Range Interpretation Comme nts NA (test code = 0993232730) 139 mmol/L 135-145 K (test code = 4202058852) 3.7 mmol/L 3.5-5.0 CL (test code = 4241486162) 107 mmol/L 98-108 CO2 TOTAL (test code = 8961095831) 25 mmol/L 23-31 AGAP (test code = 7652961842) 2-16 BUN (test code = 4888445352) 6 mg/dL 7-23 L GLUCOSE (test code = 8980501451) 89 mg/dL 70-110 CREATININE (test code = 8473801911) 0.71 mg/dL 0.50-1.04 TOTAL BILI (test code = 8166809822) 0.4 mg/dL 0.1-1.1 CALCIUM (test code = 0320700774) 8.9 mg/dL 8.6-10.6 T PROTEIN (test code = 0975510767) 7.3 g/dL 6.3-8.2 ALBUMIN (test code = 5177730390) 4.4 g/dL 3.5-5.0 ALK PHOS (test code = 7649751269) 67 U/L 34-122 ALTv (test code = 1742-6) 52 U/L 5-35 H AST(SGOT) (test code = 1516558989) 32 U/L 13-40 eGFR (test code = 4417086377) mL/min/1.73m2 MARKEL (test code = MARKEL) Association [...] imaging tests). Lab Interpretation (test code = 22948-2) Abnormal [facility] WITH [id number] 21:16:48* Test Item Value Reference Range Interpretation Comme nts WBC (test code = 6690-2) See_Comment [Automated [facility]] The system which generated this result transmitted reference range: 4.30 - 11.10 10*3/?L. The reference range was not used to interpret this result as normal/abnormal. RBC (test code = 789-8) See_Comment [Automated messa ge] The system which [...] 34.4 g/dL 31.6-35.1 RDW-SD (test code = 71090-8) 47.8 fL 39.0-49.9 RDW-CV (test code = 788-0) 15.2 % 12.0-15.5 PLT (test code = 777-3) See_Comment [Automated [employer] [facility]] The system which generated this result transmitted reference range: 166 - 358 10*3/?L. The reference range was not used to interpret this result as normal/abnormal. MPV (test code = 65211-1) 11.0 fL 9.5-12.9 NRBC/100 WBC (test code = 0532637237) See_Comment [Automated [facility]] The system which generated this result transmitted reference range: 0.0 - 10.0 /100 WBCs. The reference range was not used to interpret this result as normal/abnormal. NRBC x10^3 (test code = 2414094719) See_Comment [Automated messa ge] The system which generated this result transmitted reference range: 10*3/?L. The reference range was not used to interpret this result as normal/abnormal. GRAN MAT (NEUT) % (test code = 770-8) 50.4 % IMM GRAN % (test code = 1725319876) 0.20 % LYMPH % (test code = 736-9) 40.0 % MONO % (test code = 5905-5) 6.8 % EOS % (test code = 713-8) 2.3 % BASO % (test code = 706-2) 0.3 % GRAN MAT x10^3(ANC) (test code = 8861027807) 3.26 10*3/uL 1.88-7.09 IMM GRAN x10^3 (test code = 1661569536) 0.00-0.06 LYMPH x10^3 (test code = 731-0) 2.59 10*3/uL 1.32-3.29 MONO x10^3 (test code = 742-7) 0.44 10*3/uL 0.33-0.92 EOS x10^3 (test code = 711-2) 0.15 10*3/uL 0.03-0.39 BASO x10^3 (test code = 704-7) 0.01-0.07 Lab Interpretation (test code = 80644-2) Abnormal [facility] Notes Date/Time Note Provider Source 2024-07-23 15:30:35 Spoke with pt and informed her prescription was sent 05/07/24 with 5 additional refills. Pt needs to contact pharmacy. Pt verbalized understanding. No further questions. Lagos RN [facility] 2024-07-23 15:21:45 Taisha Gavin is a 38 year old female Pt is calling to get a refill for zonisamide 100 mg capsule. Pt is out. States when she takes the rx she has to take a tylenol right after due to getting a headache. Please advise. [facility] Pharmacy [place], [place] - [address] [place] [address] [address] [facility] [address] Ontiveros [facility] 2024-06-21 15:12:23 Dr. Bird informed. Closing encounter. HOSPITAL Yvrose Lagos RN [facility] 2024-06-21 14:44:26 Agree. Due to the number of seizures, patient advised to go to the ER. Thank you. [facility] 2024-06-20 16:21:17 Spoke with pt. Nurse informed bracelet clinic does not provide bracelet but she can order one on [employer] or by pharmacy. Pt reports she has had about 10 seizures in total in the month of June. She has told many family members not to let her drive due to seizures, and family still let her and call her instead of ambulance. She reports "the officers had to fight with the patient to get her car keys out of her hand, and she stated she is not supposed to be driving" and believes it might be due to Zonisamide. Due to frequency of seizures, Nurse advised pt to go to [facility] ED [place], request a Neurology consult for a further assessment. Pt verbalized understanding. No further questions. [facility] 2024-06-20 15:03:37 Patient had a seizure on 06/10/24, and the officer that assisted her stated she was suppose to have bracelets saying she has epilepsy. She is asking to speak with nurse or provider regarding this. Also, zonisamide 100 mg capsule medications is causing patient to be aggressive, angry and symptoms a re increasing. While having the seizure on 06/10/24 the officers had to fight with the patient to get her car keys out of her hand, and she stated she is not supposed to be driving. Please advise HOSPITAL Emily Tidwell [facility] 2024-05-16 16:13:29 Spoke with pt. Pt verbalized understanding of taking OTC Tylenol 500mg PRN. No further questions. Yvrose Lagos RN [facility] 2024-05-16 15:23:51 She was taken off this medication. She can take Tylenol 500 mg PRN which is found OTC. Thank you. Marge [facility] 2024-05-14 16:39:25 please review and advise, do you wish to refill the vdgabtpulsnxi-wrfu-vzetcuu rod? Please let us know how you would like this handled. Thank you. Chelsea Cornelius RN [facility] 2024-05-14 16:17:59 Taisha Gavin is a 38 year old female Pt is calling about the medication she didn't get a refill on dscqvongebckq-fzfk-urchyya rod per capsule Pt was wondering if she was being taken off this medication if not she needs a refill on it [facility] 05/07/24 Please advise [facility] - [place], [place] - [address] [place] [address] [address] Michelle Bautista [facility] 2024-04-26 08:36:31 I called th patient and rescheduled her appt with Dr Bird Renate Aguero [facility] 2024-04-25 17:20:10 Taisha Gavin is a 38 year old female Can't make her appointment tomorrow 04/26 so it is cancelled and she needs to reschedule. Please advise [phone] Jose Manuel Steelepadminijan [facility] 2024-02-22 13:47:13 Re: MRI finding : I called Taisha Barton regarding MRI finding suggestive of pseudotumor cerebri. Of note patient has a history of pseudotumor cerebri in 2003, currently not on any medication, and was recently seen in clinic due to seizure-like episode. 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 Ophthalmology consult has been placed to rule out papilledema and assess the degree of optic atrophy present as well as monitoring of visual acuity/field. Patient has scheduled neurology follow-up on April 26, 2024. Plan discussed with Dr. Bird, neurology faculty. Dr. Yadi Epstein MD. Resident | PGY-4 Department of Neurology [facility] T [facility] 2024-02-02 17:10:48 Please advise patient to go to nearest ER if she has allergic reaction. Please add this patient for follow-up in my next available appointment. Thank you. Marge [facility] 2024-01-31 16:51:40 If patient developed allergic reaction to Vimpat, she cannot take Vimpat ever again. The Vimpat needs to be add to her list of "allergy" to medications. Please advise her to go to nearest ER if the reaction gets worse. Please advise patient to start Zonisamide 100 mg daily in the evening. Please advise her to schedule a follow-up consult. Will send the prescription now. Thank you. Marge [facility] 2024-01-24 14:30:43 Pt returned call. She stopped Vimpat 3 days ago due to rash and itching. Pt stated she did have a seizure yesterday. She is wanting to know if she can go on a lower dose of Vimpat. Please review and advise, thank you. Chelsea Cornelius RN [facility] 2024-01-24 08:07:58 Attempt made to contact pt, message left with direct number to clinic given at this time. Attempt made to also contacted [facility], message left at this time. [facility] 2024-01-23 17:18:24 Taisha Gavin is a 38 year old female Pt is returning call in regard to an assessment. Please advise. Pt can be contacted at [phone] (home) Shania Vyas [facility] 2024-01-23 16:47:02 Returned call to patient, LMOR to return call to clinic to discuss further. Jean Paul Garcia RN [facility] 2024-01-23 15:31:37 Pt states she has had an allergic reaction to the VIMPAT and is requesting to speak to nurse to have dosage lowered. Please F/u Ernesto Billy [facility] 2023-12-29 09:06:12 Refilled. Close the encounter. Zane Arrieta MD [facility] 2023-12-28 09:46:46 Thank you closing encounter. Chelsea Cornelius RN [facility] 2023-12-27 15:45:[address] Bird. Zane Arrieta MD [facility] 2023-12-27 13:27:58 Routing to provider for approval Controlled RX Emily Moffett MA [facility] 2023-12-26 09:33:18 [facility] 10/25/23 Per last chart note, medication refilled Routing to provider (controlled rx) Emily Moffett MA [facility] 2023-12-23 15:31:38 Copied from [facility] #[id number]. 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 She only has 2 left. Pt said she also had a seizure earlier today. Please advise [facility] - [place], [place] - [address] [place] [address] [address] [facility] [address] [facility] 2023-10-11 13:54:55 Chief Complaint Patient presents with New Patient Establish Care Was diagnosed with absent seizures about two years ago. Her seizures are getting worse. Briseyda Sanchez LVN [facility]
[2024-12-04] MEDS ORDERED: KETOROLAC 30 MG/ML INJ ONE (18:33)
[2024-12-04] MEDS ORDERED: dexAMETHasone 10 MG/ML VIAL ONE (18:33)
[2024-12-04] MEDS ORDERED: METOCLOPRAMIDE 10 MG/2mL INJ ONE (18:33)
[2024-12-04] MEDS ORDERED: NA CHLORIDE 0.9% 1,000 ML ONE (18:33)
[2024-12-04] MEDS ORDERED: KETAMINE HCL IN 0.9 % NACL 50 MG/5 ML SYRINGE IV ONE (20:42)
[2024-12-04] MEDS ORDERED: NA CHLORIDE 0.9% 50 ML ONE (20:46)
--- NOTE | 2024-12-04 21:01 | RAD REPORT ---
EXAMINATION: Head Brain Wo Cont CLINICAL INDICATION: Female, 39 years old.hx of pseudotumor cerebri;Headache TECHNIQUE: Axial CT images from the skull base to the vertex without intravenous contrast. Coronal an d sagittal reformatted images were created from the data set. One or more of the following dose reduction techniques were used: Automated exposure control, adjustment of the mA and/or kV according to patient size, and/or iterative reconstruction. Unless otherwise specified, incidental findings do not require dedicated imaging follow-up. [id number]. COMPARISON: 08/24/24 FINDINGS: INTRACRANIAL: No acute intracranial hemorrhage. No hydrocephalus. No mass effect or midline shift. No significant white matter disease.Empty sella, typically a normal variant. VASCULATURE: No visualized abnormalities in the arteries or dural venous sinuses. SCALP/SKULL: No calvarial fracture identified. No acute soft tissue abnormality. SINUSES: The visualized paranasal sinuses are mostly clear. No significant mastoid fluid. IMPRESSION: No acute intracranial abnormality.
--- NOTE | 2024-12-04 22:52 | EDPHYS ---
Physician Documentation [facility] Name: Taisha Gavin Age: 39 yrs Sex: Female : 1985 Arrival Date: 12/04/2024 Time: 17:33 Bed 16 Private MD: ED Physician Prabhjot Hughes HPI: 12/04 18:17 This 39 yrs old Black Female presents to ER via EMS with complaints of Headache. rn 18:17 The patient complains of pain to the top of head and forehead. The patient describes rn the headache as aching. Onset: The symptoms/episode began/occurred this morning. Associated signs and symptoms: Pertinent negatives: altered mental status, fever, neck stiffness, vision changes, vision loss, weakness, vertigo. Severity of symptoms: At its worst the pain was moderate, in the emergency department the pain is unchanged. The patient has experienced similar episodes in the past. Patient reports history of pseudotumor cerebri. Patient reports frequent headaches, takes Diamox and Fioricet for her headaches that she gets often. Usually gets rid of it but this 1 is lingering. No fever or chills. No atypical symptoms other than lasting longer. No focal neurological deficit. No vision loss. No head injury. States diagnosed with pseudotumor cerebri 20 years ago and has only required that 1 lumbar puncture. Patient sees Dr. Ruano and she states she is supposed to be scheduling a lumbar puncture soon.. Historical: - Allergies: 18:02 Codeine; kj2 18:02 Lasix; kj2 18:02 PENICILLINS; kj2 - Home Meds: 18:02 Keppra Oral [Active]; kj2 - PSHx: 18:02 Appendectomy; section; Cholecystectomy; Tubal reversal; kj2 - Immunization history:: Adult Immunizations unknown. - Infectious Disease History:: Denies. - Social history:: Smoking status: unknown. - Family history:: not pertinent. - Hospitalizations: : No recent hospitalization is reported. ROS: 18:17 Constitutional: Negative for fever, chills, and weight loss, Cardiovascular: Negative rn for chest pain, palpitations, and edema, Respiratory: Negative for shortness of breath, cough, wheezing, and pleuritic chest pain, Abdomen/GI: Negative for abdominal pain, nausea, vomiting, diarrhea, and constipation, MS/Extremity: Negative for injury and deformity, Skin: Negative for injury, rash, and discoloration, Neuro: Negative for headache, weakness, numbness, tingling, and seizure, 23:18 All other systems are negative, sp4 Exam: 18:17 Constitutional: This is a well developed, well nourished patient who is awake, alert, rn and in no acute distress. Head/Face: Normocephalic, atraumatic. Cardiovascular: Regular rate and rhythm. No pulse deficits. Respiratory: No increased work of breathing, no retractions or nasal flaring. Neuro: Awake and alert, GCS 15, oriented to person, place, time, and situation. 23:18 Constitutional: This is a well developed, well nourished patient who is awake, alert, sp4 and in no acute distress. Head/Face: Normocephalic, atraumatic. Eyes: Pupils equal round and reactive to light, extra-ocular motions intact. Lids and lashes normal. Conjunctiva and sclera are not injected. Cornea within normal limits. Periorbital areas with no swelling, redness, or edema. ENT: Nares patent. No nasal discharge, no septal abnormalities noted. Tympanic membranes are normal and external auditory canals are clear. Oropharynx with no redness, swelling, or masses, exudates, or evidence of obstruction, uvula midline. Mucous membranes moist. Neck: Trachea midline, no thyromegaly or masses palpated, and no cervical lymphadenopathy. Supple, full range of motion without nuchal rigidity, or vertebral point tenderness. Chest/axilla: Normal chest wall appearance and motion. Nontender with no deformity. No lesions are appreciated. Cardiovascular: Regular rate and rhythm with a normal S1 and S2. No gallops, murmurs, or rubs. Normal PMI, no JVD. No pulse deficits. Respiratory: Lungs have equal breath sounds bilaterally, clear to auscultation and percussion. No rales, rhonchi or wheezes noted. No increased work of breathing, no retractions or nasal flaring. Abdomen/GI: Soft, with normal bowel sounds. No distension or tympany. No guarding or rebound. No evidence of tenderness throughout. Back: No spinal tenderness. No costovertebral tenderness. Skin: Warm, dry with normal turgor. Normal color with no rashes, no lesions, and no evidence of cellulitis. MS/ Extremity: Pulses equal, no cyanosis. Neurovascular intact. Full, normal range of motion. Neuro: Awake and alert, GCS 15, oriented to person, place, time, and situation. Cranial nerves II-XII grossly intact. Motor strength 5/5 in all extremities. Sensory grossly intact. Psych: Awake, alert, with orientation to person, place and time. Behavior, mood, and affect are within normal limits Vital Signs: 18:00 BP 125 / 86; Pulse 100; Resp 20; Temp 97.9; Pulse Ox 100% ; Weight 88.9 kg; Height 5 kj2 ft. 3 in. ; Pain 8/10; 18:55 BP 123 / 84; Pulse 83; Resp 20; Pulse Ox 100% on R/A; kj2 19:55 BP 116 / 82; Pulse 78; Resp 18; Pulse Ox 100% on R/A; kj2 20:55 BP 126 / 94; Pulse 85; Resp 20; Pulse Ox 100% on R/A; kj2 22:05 BP 125 / 84; Pulse 80; Resp 20; Pulse Ox 100% on R/A; kj2 18:00 Body Mass Index 34.72 (88.90 kg, 160.02 cm) kj2 18:00 Pain Scale: Adult kj2 NIH Stroke Scale Scores: 23:18 NIHSS Score: 0 sp4 Cleo Coma Score: 19:59 Eye Response: spontaneous(4). Motor Response: obeys commands(6). Verbal Response: rn oriented(5). Total: 15. 23:18 Eye Response: spontaneous(4). Motor Response: obeys commands(6). Verbal Response: sp4 oriented(5). Total: 15. MDM: 17:58 Medical Screening Exam initiated rn 18:22 Differential diagnosis:. rn 19:59 Data reviewed: vital signs, nurses notes. ED course: Patient did not improve with rn fluids/Reglan/ketorolac and Decadron. Patient states normally responds to Fioricet but did not today. Will get CT head to rule out other etiology. Patient is allergic to codeine and reports nausea and itching with rash. Did not respond to ketorolac. Decision made to give low-dose ketamine for pain control.. 22:38 ED course: EXAMINATION: Head Brain Wo Cont CLINICAL INDICATION: Female, 39 years old.hx sp4 of pseudotumor cerebri;Headache TECHNIQUE: Axial CT images from the skull base to the vertex without intravenous contrast. Coronal and sagittal reformatted images were created from the data set. One or more of the following dose reduction techniques were used: Automated exposure control, adjustment of the mA and/or kV according to patient size, and/or iterative reconstruction. Unless otherwise specified, incidental findings do not require dedicated imaging follow-up. [id number]. COMPARISON: 08/24/24 FINDINGS: INTRACRANIAL: No acute intracranial hemorrhage. No hydrocephalus. No mass effect or midline shift. No significant white matter disease.Empty sella, typically a normal variant. VASCULATURE: No visualized abnormalities in the arteries or dural venous sinuses. SCALP/SKULL: No calvarial fracture identified. No acute soft tissue abnormality. SINUSES: The visualized paranasal sinuses are mostly clear. No significant mastoid fluid. IMPRESSION: No acute intracranial abnormality. . 22:38 Consideration of Admission/Observation Escalation of care including sp4 admission/observation considered. Management of patient was discussed with the following: Shipping Order Clerk: Dr. Ruano with neurology who recommends transfer for higher level of care. Patient has neurologist Dr.Diosely Bird at [facility]. Patient most appropriate should be transferred to [facility] for higher level of care and neurologic assessment. No active seizures here in ER. 23:23 ED course: [facility] could not accept the patient secondary to capacity. Patient was sp4 discussed with [facility] neurologist who did accept patient for transfer.. 12/05 00:17 ED course: Patient was discussed with [facility] neurology team and sp4 accepted for evaluation. Patient then discussed everything with her relatives and decided not to be transferred. Patient request to be discharged at this time. Since there were no seizures in the ER we anticipate discharge in safe for the patient.. Patient will be given informed discharge at this time she prefers to go home and follow-up with her neurologist. Vital signs are stable patient is stable for discharge from ER. 12/04 19:56 Order name: CBC with Diff rn 12/04 19:56 Order name: Basic Metabolic Panel; Complete Time: 23:17 rn 12/04 22:39 Order name: Lactate w/ 2H reflex if indic.; Complete Time: 23:58 sp4 12/04 22:39 Order name: LFT's; Complete Time: 23:58 sp4 12/04 22:40 Order name: Test, Serum sp4 12/04 22:47 Order name: Test, Urine kj2 12/04 22:59 Order name: Manual Differential EDMS 12/04 19:56 Order name: CT Head Brain wo Cont; Complete Time: 21:37 rn 12/04 18:05 Order name: IV Start; Complete Time: 18:56 rn Administered Medications: 12/04 18:55 Drug: metoCLOPramide IVP 10 mg IVP once; over 1 to 2 minutes Route: IVP; Site: left kj2 antecubital; 22:26 Follow up: Response: No adverse reaction kj2 18:55 Drug: Ketorolac IVP 30 mg IVP once Route: IVP; Site: left antecubital; kj2 22:26 Follow up: Response: No adverse reaction kj2 18:56 Drug: Decadron - Dexamethasone IVP 10 mg IVP once Route: IVP; Site: left antecubital; kj2 22:27 Follow up: Response: No adverse reaction kj2 18:56 Drug: NS 0.9% IV 1000 ml IV at 1000 ml once; to be given as a bolus over 60 minutes kj2 Route: IV; Rate: 1000 ml; Site: left antecubital; 22:26 Follow up: IV Status: Completed infusion; IV Intake: 1000ml kj2 20:50 Drug: Ketamine IVP 0.2 mg/kg IVP once; Mix in 50 mL NS IV over 10 minutes. Maximum Dose kj2 10 mg Route: IVP; Site: left antecubital; 22:27 Follow up: Response: No adverse reaction kj2 23:19 Drug: Keppra IV 1000 mg IV at bolus once Route: IV; Rate: bolus; Site: right wrist; kj2 Disposition Summary: 12/05/24 00:16 Discharge Ordered Problem: new(12/05/24 00:16) sp4 Symptoms: have improved(12/05/24 00:16) sp4 Condition: Stable(12/05/24 00:16) sp4 Diagnosis - Breakthrough seizures, epilepsy, History of pseudotumor cerebri, Acute moderate sp4 headache Followup: sp4 - With: Private Physician - When: 7 - 10 days - Reason: Recheck today's complaints Followup: sp4 - With: Abrahan Ruano MD - When: 7 - 10 days - Reason: Recheck today's complaints Discharge Instructions: - Discharge Summary Sheet sp4 - Seizure, Adult, Vqhm-ih-Lcax sp4 Forms: - Patient Portal Instructions sp4 NIH Stroke Scale - NIH Stroke Score Date: 12/04/2024 Time: 23:18 Total Score = 0 10. Dysarthria (speech clarity - read or repeat words) - 0(Normal) 11. Extinction and Inattention (visual/tactile/auditory/spatial/personal) - 0(No abnormality) 1a. Level of Consciousness (LOC) - 0(Alert) 1b. Level of Consciousness (LOC) (Month \T\ Age) - 0(Both) 1c. LOC Commands (Open \T\ Closes Eyes/[employer]) - 0(Both) 2. Best Gaze (Lateral Gaze Paresis) - 0(Normal) 3. Visual Field Loss - 0(No visual loss) 4. Facial Palsy - 0(Normal) 5a. Left Arm: Motor (10-second hold) - 0(No drift) 5b. Right Arm: Motor (10-second hold) - 0(No drift) 6a. Left Leg: Motor (5-second hold - always test supine) - 0(No drift) 6b. Right Leg: Motor (5-second hold - always test supine) - 0(No drift) 7. Limb Ataxia (finger/nose \T\ heel/cole - test with eyes open) - 0(Absent) 8. Sensory Loss (pinprick arms/legs/face) - 0(Normal) 9. Best Language: Aphasia (description/naming/reading) - 0(No aphasia) Initials: sp4 Signatures: Dispatcher [employer] EDMS Dion Chong MD MD rn Potepalov, Sergey, MD MD sp4 Iqra Elena RN RN kj2 Corrections: (The following items were deleted from the chart) 22:40 22:40 LACTATE+C.LAB.BRZ ordered. EDMS EDMS 22:40 22:40 HEPATIC FUNCTION+C.LAB.BRZ ordered. EDNE EDMS 23:23 22:52 [facility] neurology sp4 sp4 23:23 22:52 [facility]-System sp4 sp4 12/05 00:14 12/04 22:52 Higher level of care sp4 sp4 12/05 00:12/04 22:52 Stable sp4 sp4 12/05 00:12/04 22:52 new sp4 sp4 12/05 00:12/04 22:52 have improved sp4 sp4 12/05 00:12/04 22:52 Intractable seizures, Epilepsy, history of pseudotumor cerebri, sp4 intractable headaches sp4 12/05 00:14 12/04 23:23 [facility] sp4 sp4 12/05 00:12/04 23:23 [facility] sp4 sp4
--- NOTE | 2024-12-04 22:52 | ER ---
Nurse's Notes [facility] Name: Taisha Gavin Age: 39 yrs Sex: Female : 1985 Arrival Date: 12/04/2024 Time: 17:33 Bed 16 Private MD: Diagnosis: Breakthrough seizures, epilepsy, History of pseudotumor cerebri, Acute moderate headache Presentation: 12/04 18:00 Chief complaint: EMS states: woke up this morning with a migraine headache. Coronavirus kj2 screen: Client denies travel out of the [place] in the last 14 days. Ebola Screen: No symptoms or risks identified at this time. Initial Sepsis Screen: Does the patient meet any 2 criteria? No. Patient's initial sepsis screen is negative. Does the patient have a suspected source of infection? No. Patient's initial sepsis screen is negative. Risk Assessment: Do you want to hurt yourself or someone else? Patient reports no desire to harm self or others. Onset of symptoms was December 04, 2024. 18:00 Method Of Arrival: EMS: [facility] 2 18:00 Acuity: CRISTHIAN 3 kj2 Triage Assessment: 18:03 Headache History: The patient has had previous headaches and this one is similar to kj2 previous episodes. General: Appears in no apparent distress. uncomfortable, Behavior is calm, cooperative. Pain: Complains of pain in head Pain currently is 8 out of 10 on a pain scale. Pain began gradually, Also complains of no other associated symptoms. Neuro: Level of Consciousness is awake, alert, obeys commands, Oriented to person, place, time, situation. Cardiovascular: Patient's skin is warm and dry. Respiratory: Airway is patent Respiratory effort is even, unlabored. GI: No signs and/or symptoms were reported involving the gastrointestinal system. : No signs and/or symptoms were reported regarding the genitourinary system. Historical: - Allergies: 18:02 Codeine; kj2 18:02 Lasix; kj2 18:02 PENICILLINS; kj2 - Home Meds: 18:02 Keppra Oral [Active]; kj2 - PSHx: 18:02 Appendectomy; section; Cholecystectomy; Tubal reversal; kj2 - Immunization history:: Adult Immunizations unknown. - Infectious Disease History:: Denies. - Social history:: Smoking status: unknown. - Family history:: not pertinent. - Hospitalizations: : No recent hospitalization is reported. Screenin:04 [facility] ED Fall Risk Assessment (Adult) History of falling in the last 3 months, kj2 including since admission No falls in past 3 months (0 pts) Confusion or Disorientation No (0 pts) Intoxicated or Sedated No (0 pts) Impaired Gait No (0 pts) Mobility Assist Device Used No (0 pt) Altered Elimination No (0 pt) Score/Fall Risk Level 0 - 2 = Low Risk Maintained a safe environment, Hourly rounding (assess needs \T\ fall precautionary measures) done. Abuse screen: Denies threats or abuse. Denies injuries from another. Nutritional screening: No deficits noted. Tuberculosis screening: No symptoms or risk factors identified. Assessment: 18:04 General: see triage assessment. Pain: Complains of pain in headache. kj2 18:55 Reassessment: Patient appears in no apparent distress at this time. Patient and/or kj2 family updated on plan of care and expected duration. Pain level reassessed. Patient is alert, oriented x 3, equal unlabored respirations, skin warm/dry/pink. 19:55 Reassessment: Patient and/or family updated on plan of care and expected duration. Pain kj2 level reassessed. Patient is alert, oriented x 3, equal unlabored respirations, skin warm/dry/pink. 20:50 Reassessment: Patient and/or family updated on plan of care and expected duration. Pain kj2 level reassessed. Patient is alert, oriented x 3, equal unlabored respirations, skin warm/dry/pink. 22:05 Reassessment: Patient appears in no apparent distress at this time. Patient and/or kj2 family updated on plan of care and expected duration. Pain level reassessed. Patient is alert, oriented x 3, equal unlabored respirations, skin warm/dry/pink. 22:40 Reassessment: patient took out IV as she thought she was going home. kj2 23:05 Reassessment: Patient appears in no apparent distress at this time. Patient and/or kj2 family updated on plan of care and expected duration. Pain level reassessed. Patient is alert, oriented x 3, equal unlabored respirations, skin warm/dry/pink. Vital Signs: 18:00 BP 125 / 86; Pulse 100; Resp 20; Temp 97.9; Pulse Ox 100% ; Weight 88.9 kg; Height 5 kj2 ft. 3 in. ; Pain 8/10; 18:55 BP 123 / 84; Pulse 83; Resp 20; Pulse Ox 100% on R/A; kj2 19:55 BP 116 / 82; Pulse 78; Resp 18; Pulse Ox 100% on R/A; kj2 20:55 BP 126 / 94; Pulse 85; Resp 20; Pulse Ox 100% on R/A; kj2 22:05 BP 125 / 84; Pulse 80; Resp 20; Pulse Ox 100% on R/A; kj2 18:00 Body Mass Index 34.72 (88.90 kg, 160.02 cm) kj2 18:00 Pain Scale: Adult kj2 Cleo Coma Score: 19:59 Eye Response: spontaneous(4). Motor Response: obeys commands(6). Verbal Response: rn oriented(5). Total: 15. 23:18 Eye Response: spontaneous(4). Motor Response: obeys commands(6). Verbal Response: sp4 oriented(5). Total: 15. NIH Stroke Scale Scores: 23:18 NIHSS Score: 0 sp4 ED Course: 17:40 Patient arrived in ED. bd 17:58 Dion Chong MD is Attending Physician. rn 18:00 Iqra Elena RN is Primary Nurse. kj2 18:02 Triage completed. kj2 18:05 Patient has correct armband on for positive identification. Bed in low position. Call kj2 light in reach. Provided Education on: call light. 18:29 Inserted saline lock: 20 gauge in left antecubital area, using aseptic technique. Blood rs6 collected. Flushed with 10 mL NS. 20:05 Attending Physician role handed off by Dion Chong MD sp4 20:05 Prabhjot Hughes MD is Attending Physician. sp4 20:54 CT Head Brain wo Cont In Process Unspecified. EDMS 23:00 Inserted saline lock: 22 gauge in right wrist, using aseptic technique. Blood kj2 collected. Flushed with 10 mL NS. 23:19 Test, Serum Sent. kj2 12/05 00:16 Abrahan Ruano MD is Referral Physician. sp4 00:32 No provider procedures requiring assistance completed. IV discontinued, intact, vc1 bleeding controlled, No redness/swelling at site. Pressure dressing applied. Administered Medications: 12/04 18:55 Drug: metoCLOPramide IVP 10 mg IVP once; over 1 to 2 minutes Route: IVP; Site: left kj2 antecubital; 22:26 Follow up: Response: No adverse reaction kj2 18:55 Drug: Ketorolac IVP 30 mg IVP once Route: IVP; Site: left antecubital; kj2 22:26 Follow up: Response: No adverse reaction kj2 18:56 Drug: Decadron - Dexamethasone IVP 10 mg IVP once Route: IVP; Site: left antecubital; kj2 22:27 Follow up: Response: No adverse reaction kj2 18:56 Drug: NS 0.9% IV 1000 ml IV at 1000 ml once; to be given as a bolus over 60 minutes kj2 Route: IV; Rate: 1000 ml; Site: left antecubital; 22:26 Follow up: IV Status: Completed infusion; IV Intake: 1000ml kj2 20:50 Drug: Ketamine IVP 0.2 mg/kg IVP once; Mix in 50 mL NS IV over 10 minutes. Maximum Dose kj2 10 mg Route: IVP; Site: left antecubital; 22:27 Follow up: Response: No adverse reaction kj2 23:19 Drug: Keppra IV 1000 mg IV at bolus once Route: IV; Rate: bolus; Site: right wrist; kj2 Medication: 18:05 VIS not applicable for this client. kj2 Intake: 22:26 IV: 1000ml; Total: 1000ml. kj2 Outcome: 22:52 ER care complete, transfer ordered by MD. rice 12/05 00:16 Discharge ordered by MD. rice 00:33 Discharged to home ambulatory, with friend, vc1 00:33 Condition: stable 00:33 Discharge instructions given to patient, Instructed on discharge instructions, Demonstrated understanding of instructions, follow-up care, 00:34 Patient left the ED. vc1 NIH Stroke Scale - NIH Stroke Score Date: 12/04/2024 Time: 23:18 Total Score = 0 10. Dysarthria (speech clarity - read or repeat words) - 0(Normal) 11. Extinction and Inattention (visual/tactile/auditory/spatial/personal) - 0(No abnormality) 1a. Level of Consciousness (LOC) - 0(Alert) 1b. Level of Consciousness (LOC) (Month \T\ Age) - 0(Both) 1c. LOC Commands (Open \T\ Closes Eyes/[employer]) - 0(Both) 2. Best Gaze (Lateral Gaze Paresis) - 0(Normal) 3. Visual Field Loss - 0(No visual loss) 4. Facial Palsy - 0(Normal) 5a. Left Arm: Motor (10-second hold) - 0(No drift) 5b. Right Arm: Motor (10-second hold) - 0(No drift) 6a. Left Leg: Motor (5-second hold - always test supine) - 0(No drift) 6b. Right Leg: Motor (5-second hold - always test supine) - 0(No drift) 7. Limb Ataxia (finger/nose \T\ heel/cole - test with eyes open) - 0(Absent) 8. Sensory Loss (pinprick arms/legs/face) - 0(Normal) 9. Best Language: Aphasia (description/naming/reading) - 0(No aphasia) Initials: sp4 Signatures: Dispatcher [employer] Alana Myles Roman, MD MD rn Calcote, Vanessa, RN RN vc1 Prabhjot Hughes MD MD sp4 Iqra Elena RN RN kj2 [place] rs6
[2024-12-04 22:57] LABS: Absolute Lymphocytes (CBC) 0.5 K/uL (0.7-4.9); Absolute Monocytes 0.1 K/uL (0.1-1.3); Absolute Neutrophil 5.7 K/uL (1.8-8.0); Basophils % 0.2 % (0-1.3); Eosinophils % 0.4 % (0-4.4); Hematocrit 33.9 % (36.0-45.0); Hemoglobin 11.4 g/dL (12.0-15.0); Lymphocytes % 7.8 % (15.3-44.8); MCH 27.3 pg (27.0-35.0); MCHC 33.5 g/dL (32.0-36.0); MCV 81.4 fL (80-100); MPV 8.2 fL (7.6-11.3); Monocytes % 1.2 % (3.3-12.3); Neutrophils % 90.4 % (41.7-73.7); Platelets 281 thou/uL (152-406); RBC Red Blood Cell Count 4.16 M/uL (3.86-4.86); Red Cell Distribution Width 15.6 % (12.1-15.2)
[2024-12-04 23:06] LABS: Anion Gap 9.6 mEq/L (5.0-15.0); Potassium 3.6 mEq/L (3.5-5.1)
[2024-12-04] MEDS ORDERED: LEVETIRACETAM 500 MG/5 ML VIAL IV ONE (23:06)
[2024-12-04] MEDS ORDERED: NA CHLORIDE 0.9% 100 ML ONE (23:06)
[2024-12-04 23:10] LABS: ALT/SGPT 28 U/L (13-56); Albumin 3.6 g/dL (3.4-5.0); Albumin/Globulin Ratio 0.9 (1.1-1.8); Alkaline Phosphatase 69 U/L (45-117); Bilirubin Total 0.4 mg/dL (0.2-1.0); Globulin 4.2 g/dL (2.3-3.5); Protein, Total 7.8 g/dL (6.4-8.2)
[2024-12-04 23:49] LABS: AST/SGOT < 10 U/L (15-37); Bilirubin Direct < 0.2 mg/dL (0-0.2); Bilirubin Indirect, Calculated 0.2 mg/dL (0.2-0.8)
[2024-12-05 00:38] LABS: Band Neutrophils 7 % (0-1); Differential Total Cells Count 100; Lymphocytes 5 % (15-42); Segmented Neutrophils 87 % (40-80)
[2024-12-05 00:39] LABS: Blood Morphology Comment NOT SEEN (NOT SEEN); Monocytes 0 % (0-10); Platelet Estimate ADEQ
[2024-12-05 09:14] VITALS: TEMP 97.9; O2SAT 100
[2024-12-05 09:19] VITALS: BP 125/84
== END 2024-12-05 00:34 | disposition home or self-care (01) ==
LOC: ER 17:33
DX: G40.909 Epilepsy, unspecified, not intractable, without status epilepticus (principal); Z86.69 Personal history of other diseases of the nervous system and sense organs
CPT/HCPCS: 85025; 80048; 36415; 84703; 80076; 83605; 70450; J1953; J2765; J1100; J7030

== ENCOUNTER 2025-06-04 14:10 | Emergency (ER) | payer OTHER ==
[2025-06-04] MEDS ORDERED: KETOROLAC 30 MG/ML INJ ONE (15:15)
[2025-06-04 15:41] LABS: Absolute Lymphocytes (CBC) 1.7 K/uL (0.7-4.9); Hematocrit 30.3 % (36.0-45.0); Hemoglobin 10.0 g/dL (12.0-15.0); MCH 26.2 pg (27.0-35.0); MCHC 33.0 g/dL (32.0-36.0); MCV 79.5 fL (80-100); MPV 8.3 fL (7.6-11.3); Nucleated RBC Absolute Count 0.0 (0-0); Nucleated Red Blood Cells % 0.1 % (0-0); RBC Red Blood Cell Count 3.81 M/uL (3.86-4.86); White Blood Count 5.50 thou/uL (4.3-10.9)
[2025-06-04 15:54] LABS: Anion Gap 7.0 mEq/L (5.0-15.0); BUN Blood Urea Nitrogen 11.0 mg/dL (7-18); Glucose Level 98.0 mg/dL (74-106); Potassium 4.0 mEq/L (3.5-5.1)
--- NOTE | 2025-06-04 17:41 | ER ---
Nurse's Notes [facility] Name: Taisha Gavin Age: 39 yrs Sex: Female : 1985 Arrival Date: 06/04/2025 Time: 14:10 Bed 8 Private MD: Diagnosis: Other seizures Presentation: 06/04 14:21 Chief complaint: EMS states: Absence seizure that lasted for 5 minutes, was postictal hb for approx 10 mins. Hx of seizures. Coronavirus screen: At this time, the client does not indicate any symptoms associated with coronavirus-19. Ebola Screen: No symptoms or risks identified at this time. Initial Sepsis Screen: Does the patient meet any 2 criteria? No. Patient's initial sepsis screen is negative. Does the patient have a suspected source of infection? No. Patient's initial sepsis screen is negative. Risk Assessment: Do you want to hurt yourself or someone else? Patient reports no desire to harm self or others. 14:21 Method Of Arrival: EMS: [facility] 14:21 Acuity: CRISTHIAN 3 hb 14:23 Onset of symptoms was June 04, 2025. hb Triage Assessment: 14:25 General: Appears in no apparent distress. Behavior is calm, cooperative. Pain: Pain hb currently is 7 out of 10 on a pain scale. EENT: No signs and/or symptoms were reported regarding the EENT system. Neuro: Level of Consciousness is awake, alert, obeys commands, Oriented to person, place, time, situation, Reports headache. Cardiovascular: Patient's skin is warm and dry. Respiratory: Respiratory effort is even, unlabored, Respiratory pattern is regular, symmetrical. GI: No signs and/or symptoms were reported involving the gastrointestinal system. : No signs and/or symptoms were reported regarding the genitourinary system. Derm: Skin is pink, warm \T\ dry. Musculoskeletal: No signs and/or symptoms reported regarding the musculoskeletal system. 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 - Infectious Disease History:: Denies. - Social history:: Smoking status: Patient denies any tobacco usage or history of. Screenin:26 [facility] ED Fall Risk Assessment (Adult) History of falling in the last 3 months, hb including since admission No falls in past 3 months (0 pts) Confusion or Disorientation No (0 pts) Intoxicated or Sedated No (0 pts) Impaired Gait No (0 pts) Mobility Assist Device Used No (0 pt) Altered Elimination No (0 pt) Score/Fall Risk Level 0 - 2 = Low Risk Oriented to surroundings, Maintained a safe environment, Educated pt \T\ family on fall prevention, incl call for assistance when getting out of bed. Abuse screen: Denies threats or abuse. Denies injuries from another. Nutritional screening: No deficits noted. Tuberculosis screening: No symptoms or risk factors identified. Assessment: 14:26 General: See triage . hb 16:00 Reassessment: Patient appears in no apparent distress at this time. No changes from zm previously documented assessment. Patient and/or family updated on plan of care and expected duration. Pain level reassessed. Patient is alert, oriented x 3, equal unlabored respirations, skin warm/dry/pink. 18:00 Reassessment: Patient appears in no apparent distress at this time. No changes from zm previously documented assessment. Patient and/or family updated on plan of care and expected duration. Pain level reassessed. Patient is alert, oriented x 3, equal unlabored respirations, skin warm/dry/pink. Vital Signs: 14:23 BP 159 / 102; Pulse 80; Resp 17; Temp 98; Pulse Ox 100% on R/A; Weight 87.09 kg (M); hb Pain 6/10; 16:00 BP 126 / 84; Pulse 60; Resp 17; Temp 98.1; Pulse Ox 100% on R/A; zm 18:00 BP 127 / 89; Pulse 74; Resp 17; Pulse Ox 100% on R/A; zm 14:23 Pain Scale: Adult hb Cleo Coma Score: 14:25 Eye Response: spontaneous(4). Motor Response: obeys commands(6). Verbal Response: hb oriented(5). Total: 15. ED Course: 14:21 Patient arrived in ED. hb 14:22 Man Hoffman DO is Attending Physician. ms3 14:23 Triage completed. hb 14:25 Arm band placed on. hb 14:26 Patient has correct armband on for positive identification. Call light in reach. hb Seizure precautions initiated. Provided Education on: call light . 15:25 BMP Sent. bc6 15:25 CBC with Diff Sent. bc6 15:25 Initial lab(s) drawn, by oh, sent to lab. Inserted saline lock: 20 gauge in left bc6 antecubital area, using aseptic technique. Blood collected. Flushed with 10 mL NS. 15:43 Breanna Nunn, RN is Primary Nurse. ph 17:40 Abrahan Ruano MD is Referral Physician. ms3 18:22 No provider procedures requiring assistance completed. IV discontinued, intact, zm bleeding controlled, No redness/swelling at site. Pressure dressing applied. Administered Medications: 15:44 Drug: Ketorolac IVP 15 mg IVP once Route: IVP; Site: left antecubital; ph 18:26 Follow up: Response: No adverse reaction Medication: 14:26 VIS not applicable for this client. hb Outcome: 17:40 Discharge ordered by . ms3 18:22 Discharged to home ambulatory, with family, 18:22 Condition: stable 18:22 Discharge instructions given to patient, Instructed on discharge instructions, follow up and referral plans. safety practices, Demonstrated understanding of instructions, follow-up care, 18:26 Patient left the ED. Signatures: Breanna Nunn, RN RN Sandy Sutton, BALWINDER RN Man Hoffman DO DO ms3 Malathi Baldwin RN RN Bindu Daniels [facility]
--- NOTE | 2025-06-04 17:41 | EDPHYS ---
Physician Documentation [facility] Name: Taisha Gavin Age: 39 yrs Sex: Female : 1985 Arrival Date: 06/04/2025 Time: 14:10 Bed 8 Private MD: ED Physician Man Hoffman HPI: 06/04 15:59 This 39 yrs old Black Female presents to ER via EMS with complaints of Seizure. ms3 15:59 39-year-old female past medical history of pseudotumor cerebri, seizures presents to [facility] the emergency department for seizures. Patient states she has seizures 2-4 times per day. Patient states she has not missed her dose of medications. Patient states she had seizures today and her daughter who is not typically around called EMS. Patient states she was unable to receive her EEG due to a co-pay. Patient sees Dr. Ruano. 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 - Infectious Disease History:: Denies. - Social history:: Smoking status: Patient denies any tobacco usage or history of. ROS: 15:59 Constitutional: Negative for fever, and chills. Cardiovascular: Negative for chest ms3 pain, and palpitations. Respiratory: Negative for shortness of breath, cough, wheezing, and pleuritic chest pain, Abdomen/GI: Negative for abdominal pain, nausea, vomiting, diarrhea, and constipation, MS/Extremity: Negative for injury and deformity, Skin: Negative for injury, rash, and discoloration, 15:59 Neuro: Positive for headache, seizure activity, Exam: 15:59 Constitutional: This is a well developed, well nourished patient who is awake, alert, ms3 and in no acute distress. Cardiovascular: Regular rate and rhythm with a normal S1 and S2. No gallops, murmurs, or rubs. Normal PMI, no JVD. No pulse deficits. Respiratory: Lungs have equal breath sounds bilaterally, clear to auscultation and percussion. No rales, rhonchi or wheezes noted. No increased work of breathing, no retractions or nasal flaring. Abdomen/GI: Soft, non-tender, with normal bowel sounds. No distension or tympany. No guarding or rebound. No evidence of tenderness throughout. Skin: Warm, dry with normal turgor. Normal color with no rashes, no lesions, and no evidence of cellulitis. MS/ Extremity: Pulses equal, no cyanosis. Neurovascular intact. Full, normal range of motion. Vital Signs: 14:23 BP 159 / 102; Pulse 80; Resp 17; Temp 98; Pulse Ox 100% on R/A; Weight 87.09 kg (M); hb Pain 6/10; 16:00 BP 126 / 84; Pulse 60; Resp 17; Temp 98.1; Pulse Ox 100% on R/A; zm 18:00 BP 127 / 89; Pulse 74; Resp 17; Pulse Ox 100% on R/A; zm 14:23 Pain Scale: Adult hb Cleo Coma Score: 14:25 Eye Response: spontaneous(4). Motor Response: obeys commands(6). Verbal Response: hb oriented(5). Total: 15. MDM: 15:01 Medical Screening Exam initiated ms3 15:59 Differential diagnosis: seizure. ms3 20:55 Data reviewed: vital signs, nurses notes, and as a result, I will discharge patient. 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 Kelly to be increased to 100 mg in the morning and 200 mg at night for a week. Then patient to increase to 200 mg BID. . I considered the following discharge prescriptions or medication management in the emergency department Medications were administered in the Emergency Department. See MAR. Counseling: I had a detailed discussion with the patient and/or guardian regarding the historical points, exam findings, and any diagnostic results supporting the discharge/admit diagnosis, lab results, the need for outpatient follow up, to return to the emergency department if symptoms worsen or persist or if there are any questions or concerns that arise at home. Special discussion: I discussed with the patient/guardian in detail that at this point there is no indication for admission to the hospital. It is understood, however, that if the symptoms persist or worsen the patient needs to return immediately for re-evaluation. ED course: Zonegran to be increased to 100 mg in the morning and 200 mg at night for a week. Then patient to increase to 200 mg BID. Discussed this with patient's mother, , and patient. Patient's mother, patient were able to repeat back dosage increased. Return precautions were discussed include worsening symptoms, or any other concerns. Patient to follow-up Dr. Ruano in 2 to 3 days. All questions were answered. On reevaluation patient improved, patient is alert and oriented x 4, no apparent distress, nontoxic-appearing, speaking full sentences. 06/04 15:03 Order name: CBC with Diff; Complete Time: 16: ms3 06/04 15:03 Order name: BMP; Complete Time: 16: ms3 Administered Medications: 15:44 Drug: Ketorolac IVP 15 mg IVP once Route: IVP; Site: left antecubital; ph 18:26 Follow up: Response: No adverse reaction zm Disposition Summary: 06/04/25 17:40 Discharge Ordered Notes: Location: Home ms3 Condition: Stable ms3 Diagnosis - Other seizures ms3 Followup: ms3 - With: Abrahan Ruano MD - When: 2 - 3 days - Reason: Recheck today's complaints Discharge Instructions: - Discharge Summary Sheet ms3 - Seizure, Adult ms3 Forms: - Medication Reconciliation Form ms3 - Antibiotic Education ms3 - Prescription Opioid Use ms3 - Patient Portal Instructions ms3 - Leadership Thank You Letter ms3 Signatures: Dispatcher [employer] Breanna Cline RN RN Sandy Sutton RN RN Man Herrera DO DO ms3 Malathi Baldwin RN Corrections: (The following items were deleted from the chart) 15:59 Neuro: Positive for seizure activity, ms3 ms3
[2025-06-05 01:01] VITALS: O2SAT 100
[2025-06-05 01:03] VITALS: TEMP 98.1
[2025-06-05 01:04] VITALS: BP 127/89
== END 2025-06-04 18:26 | disposition home or self-care (01) ==
LOC: ER 14:10
DX: G40.89 Other seizures (principal)
CPT/HCPCS: 85025; 80048; 36415; 96374; 99284; J1885